=== PATIENT | female | born 1960 | race Caucasian/White ===

== ENCOUNTER → 2020-01-25 09:21 | Outpatient (BNVA) | payer OTHER, SELFPAY | PROVIDERS: PCP Physician Assistant; Visit Provider Advanced Practice Midwife | DX: N95.2 Postmenopausal atrophic vaginitis (principal) | CPT/HCPCS: 99213 ==

== ENCOUNTER → 2020-02-22 13:33 | Outpatient (BNVA) | payer OTHER, SELFPAY | PROVIDERS: Visit Provider Advanced Practice Midwife | DX: N95.2 Postmenopausal atrophic vaginitis (principal); Z80.41 Family history of malignant neoplasm of ovary | CPT/HCPCS: 99212 ==

== ENCOUNTER 2020-02-26 10:25 | Outpatient (REF) | payer OTHER, SELFPAY ==
--- NOTE | 2020-02-26 10:33 | MM_ITS ---
EXAMINATION: MM SCREENING DIGITAL BREAST TOMOSYNTHESIS, BILATERAL CLINICAL INFORMATION: Screening. Asymptomatic. The lifetime risk of breast cancer based on the Tyrer-Cuzick Model is 8%. COMPARISON: Mammography: 11/28/2015, 05/21/2014 TECHNIQUE: Digital breast tomosynthesis is performed in both the craniocaudal and mediolateral oblique views along with computer-aided detection (CAD). Synthesized 2D images are generated from the tomosynthesis. FINDINGS: There are scattered areas of fibroglandular density (ACR BI-RADS breast composition Category b). There are no significant masses, abnormal calcifications, or other abnormalities. Small nodule anterior outer right breast on CC view is stable to decreased since 2015. MM/MM tomosynthesis screening BI IMPRESSION: No mammographic evidence of malignancy. ASSESSMENT: BI-RADS 2: Benign RECOMMENDATION: Routine annual mammography screening. This patient's information was entered into a reminder system with a target due date for their next mammogram.
== END 2020-02-26 10:26 | disposition home or self-care (01) ==
LOC: HO.MAMMO 10:25
PROVIDERS: PCP Physician Assistant; Visit Provider Physician Assistant
DX: Z12.31 Encounter for screening mammogram for malignant neoplasm of breast (principal)
CPT/HCPCS: 77063; 77067

== ENCOUNTER → 2020-03-21 13:49 | Outpatient (BNVA) | payer OTHER, SELFPAY | PROVIDERS: PCP Physician Assistant; Visit Provider Surgery | DX: Z80.41 Family history of malignant neoplasm of ovary (principal) | CPT/HCPCS: 99202 ==

== ENCOUNTER 2020-04-24 13:49 | Outpatient (REF) | payer OTHER, SELFPAY ==
[2020-04-26 01:22] LABS: C. trachomatis RNA TMA NOT DETECTED (NOT DETECTED); N. gonorrhoeae RNA TMA NOT DETECTED (NOT DETECTED)
[2020-04-27 20:07] LABS: HPV mRNA E6/E7 Not Detected (Not Detected)
== END 2020-04-24 13:50 | disposition home or self-care (01) ==
LOC: HO.LAB 13:49
PROVIDERS: Visit Provider Advanced Practice Midwife
DX: Z01.419 Encounter for gynecological examination (general) (routine) without abnormal findings (principal); Z11.3 Encounter for screening for infections with a predominantly sexual mode of transmission; Z11.8 Encounter for screening for other infectious and parasitic diseases; R10.2 Pelvic and perineal pain; Z78.0 Asymptomatic menopausal state; Z79.899 Other long term (current) drug therapy
CPT/HCPCS: 36415; 87491; 87591; 87624; 87625; 88141; 88142

== ENCOUNTER 2020-05-01 14:27 | Outpatient (REF) | payer OTHER, SELFPAY ==
--- NOTE | 2020-05-01 14:31 | US_ITS ---
EXAMINATION: PELVIC ULTRASOUND CLINICAL INFORMATION: Pain COMPARISON: None TECHNIQUE: Transabdominal and transvaginal pelvic ultrasound was performed. Transvaginal exam was performed for better visualization of the uterus and ovaries. FINDINGS: Uterus is retroverted and measures 6.2 x 1.9 x 3.7 cm in dimension. There are 2 hypoechoic lesions suggestive of fibroids measuring 2.9 x 2.6 x 3.2 cm in the high posterior uterine body and 1.7 x 1.4 x 1.7 cm in the anterior high uterine body/fundus. There are several small calcifications in the lower uterine segment and cervix. The endometrium does not appear thickened measuring 0.3 cm. The ovaries are normal-appearing. The right ovary measures 1.6 x 0.8 x 1.1 cm and the left ovary measures 1 x 1 x 0.8 cm. There is no fluid in the pelvis. US/US pelvic complete IMPRESSION: Fibroid uterus. Normal-appearing ovaries.
--- NOTE | 2020-05-01 14:31 | US_ITS ---
EXAMINATION: PELVIC ULTRASOUND CLINICAL INFORMATION: Pain COMPARISON: None TECHNIQUE: Transabdominal and transvaginal pelvic ultrasound was performed. Transvaginal exam was performed for better visualization of the uterus and ovaries. FINDINGS: Uterus is retroverted and measures 6.2 x 1.9 x 3.7 cm in dimension. There are 2 hypoechoic lesions suggestive of fibroids measuring 2.9 x 2.6 x 3.2 cm in the high posterior uterine body and 1.7 x 1.4 x 1.7 cm in the anterior high uterine body/fundus. There are several small calcifications in the lower uterine segment and cervix. The endometrium does not appear thickened measuring 0.3 cm. The ovaries are normal-appearing. The right ovary measures 1.6 x 0.8 x 1.1 cm and the left ovary measures 1 x 1 x 0.8 cm. There is no fluid in the pelvis. US/US transvaginal IMPRESSION: Fibroid uterus. Normal-appearing ovaries.
== END 2020-05-01 14:28 | disposition home or self-care (01) ==
LOC: HO.US 14:27
PROVIDERS: PCP Physician Assistant; Visit Provider Advanced Practice Midwife
DX: R10.2 Pelvic and perineal pain (principal)
CPT/HCPCS: 76830; 76856

== ENCOUNTER → 2020-05-03 12:24 | Outpatient (BNVA) | payer OTHER, SELFPAY | PROVIDERS: PCP Physician Assistant; Visit Provider Physician Assistant | DX: Z76.89 Persons encountering health services in other specified circumstances (principal) | CPT/HCPCS: 20550; 99212; J1020 ==

== ENCOUNTER → 2020-05-15 11:50 | Outpatient (BNVA) | payer OTHER, SELFPAY | PROVIDERS: PCP Physician Assistant; Visit Provider Advanced Practice Midwife | DX: Z76.89 Persons encountering health services in other specified circumstances (principal) | CPT/HCPCS: 99212 ==

== ENCOUNTER 2020-09-01 19:55 | Emergency (ER) | payer OTHER, SELFPAY ==
[2020-09-01 19:59] VITALS: BP 140/76; PULSE 81; RESP 18; TEMP 36.2; O2SAT 97; BMI 27.1
--- NOTE | 2020-09-01 20:26 | ED_ITS ---
HPI - Extremity Problem General Chief complaint: Extremity Problem Stated complaint: Hand swelling Time Seen by Provider: 09/01/20 20:25 History of Present Illness HPI Narrative: Patient complains of mild redness mild swelling mild pain to the back of the right hand after she was stung by an insect early this morning while gardening, no shortness of breath no fever no swelling in the lips tongue or throat, no other rash Related Data Home Medications Medication Instructions Recorded Confirmed B-complex with vitamin C 1 tab PO DAILY 01/25/20 07/14/20 cetirizine 10 mg tablet 10 mg PO DAILY 01/25/20 07/14/20 cholecalciferol (vitamin D3) 25 25 mcg PO DAILY 01/25/20 07/14/20 mcg (1,000 unit) capsule ibuprofen 200 mg capsule 200 mg PO Q6H PRN 01/25/20 04/10/20 multivitamin,dd-ctum-nqnblwdt 1 tab PO DAILY 01/25/20 07/14/20 fluoxetine 20 mg capsule 20 mg PO DAILY 03/29/20 04/10/20 Previous Rx's Medication Instructions Recorded trazodone 100 mg tablet 100 mg PO BEDTIME #90 tab 03/09/20 acetaminophen 650 mg 650 mg PO DAILY PRN #60 tab 03/16/20 tablet,extended release albuterol sulfate 90 mcg/actuation 1 inh INHALATION QID 30 Days #8.5 g 04/10/20 aerosol inhaler estradiol 10 mcg vaginal tablet 10 mcg VAGINAL 2XW 28 Days #8 tab 04/24/20 amoxicillin 875 mg-potassium 1 tab PO BID 7 Days #14 tab 05/01/20 clavulanate 125 mg tablet pilocarpine HCl 7.5 mg tablet 7.5 mg PO TID #270 tab 05/01/20 doxycycline hyclate 100 mg capsule 100 mg PO BID 7 Days #14 cap 05/17/20 betamethasone, augmented 0.05 % 1 appl TOPICAL BID PRN #50 g 07/14/20 topical cream prednisone 10 mg tablet 10 mg PO .COMPLEX #45 tab 07/14/20 fluoxetine 40 mg capsule 40 mg PO QAM #90 cap 07/23/20 lamotrigine 200 mg tablet 300 mg PO DAILY #45 tab 08/09/20 Allergies Allergy/AdvReac Type Severity Reaction Status Date / Time cat dander [cats] Allergy Rash Verified 09/01/20 20:07 kiwi Allergy Anaphylaxis Verified 09/01/20 20:07 Review of Systems Review of Systems: Redness swelling and mild pain after an insect bite to the back of the right hand are the positive The negatives are no fever no chills no dizziness no weakness no difficulty breathing or swallowing no throat swelling no eye redness no shortness of breath no chest pain no vomiting no other rash Yes all other systems are reviewed and are negative [facility] Past Medical History Source: nursing notes reviewed Medical History History of asthma History of depression History of posttraumatic stress disorder (PTSD) Hx of insomnia Recovering alcoholic Surgical History H/O elbow surgery H/O eye surgery History of biopsy History of bunionectomy Hx of tubal ligation Family History Family History Father Lung cancer Mother Afib Sister Ovarian cancer Social History Social History Alcohol intake: never Advance Directives: No Advance Directives Information Provided: No Patient : No Current occupational status: employed Current occupation: [email or web address] - Right Handed Physical Exam Vital Signs: Vital Signs: Last Vital Signs Temp 97.2 F 09/01/20 19:59 Pulse 81 09/01/20 19:59 Resp 18 09/01/20 19:59 BP 140/76 H 09/01/20 19:59 Pulse Ox 97 09/01/20 19:59 Body Mass Index 27.1 General appearance is no distress, and cooperative Eye exam no redness Pharynx exam there is no swelling of lips tongue or uvula, mucous membranes are moist, voice is normal Neck is supple Chest is clear to auscultation bilateral with full symmetrical breath sounds no adventitious sounds Heart no murmur Skin exam the dorsum of the right hand is mildly red, there is mild induration, no fluctuance no discharge no surrounding erythema, no significant tenderness, there is full range of motion in fingers and wrist, neurovascular intact Skin no other rash Extremities full range of motion x4 Neuro no gross motor sensory deficit Course Course Course Narrative: Exam a few hours after an insect bite on the back of the right hand showed mild redness swelling and she has some mild discomfort as well and some mild itching She is treated for an insect bite, cellulitis is very unlikely as the insect bite was just a few hours ago and this reaction is very common after an insect bite and she is diagnosed with local inflammatory reaction to the bite Discharge Plan Discharge Clinical Impression: Insect bite Patient Disposition: Home, Self-Care Additional Instructions: The redness and mild swelling are common with an insect bite, but there is no sign of any infection now If redness pain or swelling worsen come back for recheck Right now this looks like a typical insect bite local reaction and the treatment is an antihistamine, you have Zyrtec at home, ice and Motrin Return any time any worse condition or any concerns Prescriptions: No Action trazodone 100 mg tablet 100 mg PO BEDTIME Qty: 90 RF: 3 acetaminophen [Mapap Arthritis Pain] 650 mg tablet extended release 650 mg PO DAILY PRN (Reason: pain) Qty: 60 RF: 2 fluoxetine 20 mg capsule 20 mg PO DAILY RF: 0 pilocarpine HCl 7.5 mg tablet 7.5 mg PO TID Qty: 270 RF: 1 doxycycline hyclate 100 mg capsule 100 mg PO BID 7 Days Qty: 14 RF: 0 fluoxetine 40 mg capsule 40 mg PO QAM Qty: 90 RF: 0 lamotrigine 200 mg tablet 300 mg PO DAILY Qty: 45 RF: 3 albuterol sulfate [Ventolin HFA] 90 mcg/actuation HFA aerosol inhaler 1 inh inhalation QID 30 Days Qty: 8.5 RF: 3 amoxicillin-pot clavulanate [Augmentin] 875-125 mg tablet 1 tab PO BID 7 Days Qty: 14 RF: 0 prednisone 10 mg tablet 10 mg PO .COMPLEX Qty: 45 RF: 0 betamethasone, augmented 0.05 % cream 1 appl topical BID PRN (Reason: itching) Qty: 50 RF: 1 cetirizine 10 mg tablet 10 mg PO DAILY RF: 0 cholecalciferol (vitamin D3) 25 mcg (1,000 unit) capsule 25 mcg PO DAILY RF: 0 B-complex with vitamin C Tablet 1 tab PO DAILY RF: 0 Complete Multivitamin Tablet 1 tab PO DAILY RF: 0 ibuprofen 200 mg capsule 200 mg PO Q6H PRNRF: 0 estradiol [Vagifem] 10 mcg tablet 10 mcg vaginal 2XW 28 Days Qty: 8 RF: 11 Interventions: ED Discharge Assessment Last Done: 09/01/20 20:46 Discharge Date/Time: 09/01/20 20:48
== END 2020-09-01 20:48 | disposition home or self-care (01) ==
PROVIDERS: Emergency Provider Internal Medicine; PCP Physician Assistant
DX: S60.561A Insect bite (nonvenomous) of right hand, initial encounter (principal); W57.XXXA Bitten or stung by nonvenomous insect and other nonvenomous arthropods, initial encounter; Y93.H2 Activity, gardening and landscaping; Y92.007 Garden or yard of unspecified non-institutional (private) residence as the place of occurrence of the external cause; Y99.9 Unspecified external cause status
CPT/HCPCS: 99282; 99283

== ENCOUNTER 2020-10-02 09:36 | Outpatient (REF) | payer OTHER, SELFPAY ==
--- NOTE | ~2020-10-02 | XR_ITS ---
EXAMINATION: XR HAND, LEFT CLINICAL INFORMATION: Left hand pain COMPARISON: 03/11/2017 TECHNIQUE: PA, lateral, and oblique views of the left hand. FINDINGS: The bones and soft tissues are normal. No fracture. Alignment is anatomic. Joint spaces are maintained. No erosions or soft tissue calcifications. XR/XR hand LT min 3V IMPRESSION: Normal left hand.
== END 2020-10-02 09:37 | disposition home or self-care (01) ==
LOC: HO.HOSX 09:36
PROVIDERS: Visit Provider Orthopaedic Surgery
DX: M65.312 Trigger thumb, left thumb (principal)
CPT/HCPCS: 73130; 99202

== ENCOUNTER 2020-11-02 09:37 | Day surgery (SDC) | payer OTHER, SELFPAY ==
[2020-10-26 10:40] VITALS: BMI 26.5
[2020-11-02 09:49] VITALS: BP 138/71; PULSE 66; RESP 18; TEMP 36.4; O2SAT 96; BMI 58.6
--- NOTE | 2020-11-02 11:11 | MHC.SHP ---
Pre-Procedural Eval Section A Date of Service: 11/02/20 Section B Chief Complaint: trigger thumb Allergies: Allergies Allergy/AdvReac Type Severity Reaction Status Date / Time cat dander [cats] Allergy Rash Verified 11/02/20 09:54 kiwi Allergy Anaphylaxis Verified 11/02/20 09:54 Plan I have reviewed the history and physical and performed a pertinent physical examination on my patient. No changes have occurred unless specified.
--- NOTE | 2020-11-02 11:11 | W.PM.OPN ---
Operative Note Operative Note Date of Service: 11/02/20 Narrative: Operative Note Preop diagnosis: 1. Left thumb Trigger finger Postop diagnosis: 1. Left thumb Trigger finger Procedure: 1. Left thumb A1 laz release Surgeon: Kathleen Davis MD Anesthesia: local block using 1% lidocaine with epinephrine Findings: No locking or catching after A1 laz release EBL: Less than 5 mL Tourniquet time: None Specimens: None Complications: None Disposition: Brought to recovery room in stable condition Plan: Follow-up for 7-10 days for wound check and suture removal Indications: The patient is 60 years old, with a left thumb trigger finger that has been unresponsive to nonoperative management. The risks and benefits of operative treatment including but not limited to risk of damage to blood vessels, nerves, tendons, infection, persistent pain, persistent symptoms, recurrence or possible need for additional surgery were discussed with the patient and the patient wishes to proceed with surgery. Procedure: Once consent was obtained a local block was performed in the preop area using a combination of 1% lidocaine with epinephrine. The patient was then brought back to the operating suite and placed on the operative table in supine position. A tourniquet was applied to the proximal aspect of the left upper extremity and the limb was prepped and draped in a standard surgical fashion. Once assured that we had a good block, a 1.5 cm oblique incision was made centered over the A1 laz of the left thumb . The incision was made through the skin to the subcutaneous tissues using a #15 blade. Careful dissection was made down to the level of the A1 laz using tenotomy scissors, with care being taken to protect the nearby neurovascular structures. A longitudinal incision was made in the A1 laz 1st using a #15 blade, then using tenotomy scissors under direct visualization. The A1 laz was noted to be thickened. Following our A1 laz release, we no longer saw any locking or catching of the digit with flexion and extension. Once satisfied with our A1 laz release the wound was copiously irrigated with normal saline and hemostasis was obtained with a brief period of local pressure. The skin edges were reapproximated with some 5.0 nylon suture material and a sterile dressing was applied. The patient appears to have tolerated the procedure well and with no complications. All digits were well vascularized at the conclusion of the case.
[2020-11-02 11:38] VITALS: BP 132/70; PULSE 66; RESP 20; TEMP 36.9; O2SAT 97
== END 2020-11-02 11:55 | disposition home or self-care (01) ==
PROVIDERS: PCP Physician Assistant; Visit Provider Orthopaedic Surgery
PROC: (CPT 26055; principal; 2020-11-02 10:40)
DX: M65.312 Trigger thumb, left thumb (principal); Z79.899 Other long term (current) drug therapy; Z79.1 Long term (current) use of non-steroidal anti-inflammatories (NSAID); Z87.891 Personal history of nicotine dependence
CPT/HCPCS: 26055

== ENCOUNTER → 2020-11-15 12:45 | Outpatient (BNVA) | payer OTHER, SELFPAY | PROVIDERS: Visit Provider Orthopaedic Surgery | DX: M65.312 Trigger thumb, left thumb (principal) | CPT/HCPCS: 99212 ==

== ENCOUNTER → 2020-12-04 13:33 | Outpatient (BNVA) | payer OTHER, SELFPAY | PROVIDERS: Visit Provider Physician Assistant | DX: M65.312 Trigger thumb, left thumb (principal); J30.81 Allergic rhinitis due to animal (cat) (dog) hair and dander; Z87.891 Personal history of nicotine dependence; Z91.018 Allergy to other foods | CPT/HCPCS: 99212 ==

== ENCOUNTER 2021-01-03 13:00 | Outpatient (RCR) | payer OTHER, SELFPAY ==
--- NOTE | 2021-01-03 13:33 | MHC.OT.DC ---
[address] [phone] F: [phone] Occupational Therapy Discharge Note Provider: Dr Davis Diagnosis: Post-op left thumb trigger finger release Date of Surgery: 11/02/20 Date of Evaluation: 12/13/20 Date of Discharge: 01/03/21 Treatments to Date: 6 Discharge Status: Achieved Goals Improved Function Independent with HEP Discharge Summary: 9 weeks post-op left thumb trigger finger release, good functional range and strength, very minimal scar tissue and pt reports no issues with hypersensitivity or discomfort. She reports some pain in MP/IP w/ thumb flexion, likely due to arthritis, but good understanding of symptoms and management. Electronically Signed By: Linette Pablo OTR/L Please Sign and return to therapist, thank you for your referral.
== END 2021-01-03 13:34 | disposition home or self-care (01) ==
LOC: HO.OT 13:00
PROVIDERS: PCP Physician Assistant; Visit Provider Physician Assistant
DX: M65.312 Trigger thumb, left thumb (principal)
CPT/HCPCS: 97110; 97140; 97165

== ENCOUNTER 2021-03-20 12:29 | Outpatient (REF) | payer OTHER, SELFPAY ==
--- NOTE | ~2021-03-20 | MM_ITS ---
EXAMINATION: MM SCREENING DIGITAL BREAST TOMOSYNTHESIS, BILATERAL CLINICAL INFORMATION: Screening. Asymptomatic. The lifetime risk of breast cancer based on the Tyrer-Cuzick Model is 7%. COMPARISON: Mammography: 02/26/2020, 11/28/2015. TECHNIQUE: Digital breast tomosynthesis is performed in both the craniocaudal and mediolateral oblique views along with computer-aided detection (CAD). Synthesized 2D images are generated from the tomosynthesis. FINDINGS: There are scattered areas of fibroglandular density (ACR BI-RADS breast composition Category b). There are no significant masses, abnormal calcifications, or other abnormalities. Small stable nodularity anterior upper outer right breast. No significant changes. MM/MM tomosynthesis screening BI IMPRESSION: No mammographic evidence of malignancy. ASSESSMENT: BI-RADS 2: Benign RECOMMENDATION: Routine annual mammography screening. This patient's information was entered into a reminder system with a target due date for their next mammogram.
== END 2021-03-20 12:30 | disposition home or self-care (01) ==
LOC: HO.MAMMO 12:29
PROVIDERS: Visit Provider Physician Assistant
DX: Z12.31 Encounter for screening mammogram for malignant neoplasm of breast (principal)
CPT/HCPCS: 77063; 77067

== ENCOUNTER 2021-04-04 07:00 | Emergency (ER) | payer OTHER, SELFPAY ==
[2021-04-04] VITALS (7 sets, daily range): BP systolic 152–171; BP diastolic 69–100; PULSE 67–95; RESP 18–20; TEMP 36.6–37.1; O2SAT 96–98; BMI 26.5
--- NOTE | ~2021-04-04 | XR_ITS ---
EXAMINATION: XR CHEST CLINICAL INFORMATION: Shortness of breath COMPARISON: May 27, 2019 TECHNIQUE: AP portable view of the chest was obtained. FINDINGS: No significant abnormality is noted involving the heart, lungs, mediastinum, bony thorax or soft tissues. XR/XR chest 1V IMPRESSION: No acute disease.
[2021-04-04] MEDS: Ondansetron ODT 4 MG TAB.RAPDIS TRANSLINGU (07:17)
--- NOTE | 2021-04-04 07:49 | ED_ITS ---
HPI - General Adult General Chief complaint: General Medical Stated complaint: MULTIPLE COMPLAINTS Time Seen by Provider: 04/04/21 07:49 Source: patient Mode of arrival: ambulatory Limitations: no limitations History of Present Illness HPI narrative: 12-year-old female with history of depression who presents to the ER for evaluation of nausea, vomiting and diarrhea for the last 4 days. She reports body aches and weakness as well. She took it at home COVID test 3 days ago and was negative. She is fully vaccinated. She has no shortness of breath or chest pain. Reports dizziness and weakness. She feels like there is nothing left in her. She has only been dry heaving as she has not been able to tolerate much p.o. except for popsicles. She has no abdominal pain, fevers, chills, urinary symptoms, cough. MD complaint: Vomiting and diarrhea, weakness Onset (ago): day(s) (4) Location: abdomen, left, right, upper extremity and lower extremity Radiation: non-radiation Severity: moderate Severity scale (1-10): 5 Quality: aching Pain Consistency: intermittent Relieving factors: none Exacerbating factors: none Associated symptoms: loss of appetite, malaise, nausea/vomiting and weakness Treatments prior to arrival: none Related Data Home Medications Medication Instructions Recorded Confirmed B-complex with vitamin C 1 tab PO DAILY 01/25/20 03/13/21 cetirizine 10 mg tablet 10 mg PO DAILY 01/25/20 03/13/21 cholecalciferol (vitamin D3) 25 25 mcg PO DAILY 01/25/20 03/13/21 mcg (1,000 unit) capsule ibuprofen 200 mg capsule 200 mg PO Q6H PRN 01/25/20 03/13/21 multivitamin,tk-fymg-gbywdgso 1 tab PO DAILY 01/25/20 03/13/21 (Complete Multivitamin) Previous Rx's Medication Instructions Recorded betamethasone, augmented 0.05 % 1 appl TOPICAL BID PRN #50 g 07/14/20 topical cream acetaminophen 650 mg 650 mg PO DAILY PRN #60 tab 10/24/20 tablet,extended release (Mapap Arthritis Pain) pilocarpine HCl 7.5 mg tablet 7.5 mg PO TID #270 tab 10/25/20 miscellaneous medical supply 1 ea MISCELLANEOUS DAILY #1 ea 12/07/20 fluoxetine 40 mg capsule 40 mg PO QAM #90 cap 02/12/21 trazodone 100 mg tablet 100 mg PO BEDTIME #90 tab 03/05/21 albuterol sulfate 90 mcg/actuation 1 inh INHALATION QID 30 Days #8.5 g 03/13/21 aerosol inhaler (Ventolin HFA) clotrimazole-betamethasone 1 1 appl TOPICAL BID 15 Days #15 g 03/13/21 %-0.05 % topical cream lamotrigine 200 mg tablet 300 mg PO DAILY #45 tab 04/04/21 ondansetron 4 mg disintegrating 4 mg PO Q8H PRN #10 tab 04/04/21 tablet Allergies Allergy/AdvReac Type Severity Reaction Status Date / Time cat dander [cats] Allergy Rash Verified 03/13/21 14:14 kiwi Allergy Anaphylaxis Verified 03/13/21 14:14 Review of Systems Review of Systems: Constitutional: No Fever, No Chills ENT/Mouth: No sore throat, No Rhinorrhea, No Swallowing Difficulty Cardiovascular: No Chest Pain, No SOB, No Orthopnea, No Edema Respiratory: No Cough, No Sputum, No Wheezing, No dyspnea Gastrointestinal: + Nausea,+ Vomiting, + Diarrhea, No abdominal Pain, No Hematochezia, No Melena Genitourinary: No Dysuria, No Urinary Frequency, No Hematuria Musculoskeletal: No joint pain, No Myalgias Skin: No Skin Lesions, No rash Neuro: No Weakness, No Numbness, + Dizziness, + Headache Psych: No Anxiety/Panic, No Depression Heme/Lymph: No Bruising, No Lymphadenopathy Endocrine: No Polyuria, No Polydipsia PMFSH Past Medical History Medical History COVID-19 vaccine administered History of asthma History of depression History of posttraumatic stress disorder (PTSD) Hx of insomnia Recovering alcoholic Surgical History H/O elbow surgery History of biopsy History of blepharoplasty History of bunionectomy History of hand surgery Hx of tubal ligation Family History Family History Father Lung cancer Mother Afib Sister Ovarian cancer Other Mental health disorder Substance use disorder Social History Social History (Updated 03/13/21 @ 14:22 by Josemanuel Maximus, PA-C) Housing: Apartment Are you a primary director of career resources to a significant other at home: No Do you presently have visiting nurse or other home services: No Alcohol intake: former Patient Tobacco Use Status: Former Tobacco user Quit Date: 15 yrs ago Tobacco use type: Cigarette Use of substances other than those prescribed or required for medical reasons: Yes Substance Use Type: Marijuana Advance Directives: No Advance Directives Information Provided: Yes service: No Current occupational status: unemployed Physical Exam Vital Signs: Vital Signs: Last Vital Signs Temp 98.7 F 04/04/21 10:34 Pulse 74 04/04/21 10:34 Resp 20 04/04/21 10:34 BP 171/69 H 04/04/21 10:34 Pulse Ox 97 04/04/21 10:34 BMI result Body Mass Index 26.5 Appearance: Alert. Oriented X3. No acute distress. Eyes: Pupils equal, round and reactive to light. ENT: Pharynx normal. Neck: Normal inspection. Neck supple. CVS: Normal heart rate and rhythm. Pulses normal. Respiratory: No respiratory distress. Breath sounds normal. Abdomen: Soft and nontender. +BS x4 Skin: Skin warm and dry. Normal skin color. Normal skin turgor. No rashes. Extremities: No lower extremity edema. Neuro: Oriented X 3. No motor deficit. No sensory deficit. Course Course Course Narrative: 61-year-old female presenting to the ER with weakness and dizziness in the setting of vomiting and diarrhea for the last 4 days. Her physical exam is benign with no abdominal tenderness. Her vital signs are normal. She appears well, nontoxic. Will check COVID swab along with metabolic workup and EKG. Will check orthostatic vital signs as well. Will give IV fluids and monitor closely. Reevaluation(s) Reevaluation #1: Labs showing WBC 11.9, which is most likely reactive due to vomiting. Viral PCR negative. No significant electrolyte abnormalities and LFTs ok. She feels better after IVF. Urinating well and no UTI on UA. Will give PO trial. Most likely gastroenteritis. Reevaluation #2: Tolerating evert rafa and crackers. She is feeling better. She is stable for discharge home with Zofran and supportive care. Patient agrees with plan. Medical Decision Making Lab Data Result diagrams: 04/04/21 08:05 04/04/21 08:05 Labs: Lab Results 04/04/21 04/04/21 04/04/21 Range/Units 07:18 08:05 08:05 WBC 11.9 H (4.8-10.8) X10*3/uL RBC 4.88 (4.20-5.50) X10*6/uL Hgb 14.8 (12.0-16.0) g/dl Hct 43.0 (37.0-47.0) % MCV 88.1 (80.0-98.0) fL MCH 30.3 (27.0-33.0) pg MCHC 34.4 (31.0-35.0) g/dl RDW 13.1 (11.0-16.0) % Plt Count 406 H (160-400) X10*3/uL MPV 8.9 L (9.4-12.3) fL Immature Gran % (Auto) 0.3 (0.0-0.4) % Neut % (Auto) 75.3 H (45-73) % Lymph % (Auto) 17.9 L (20-40) % [place] % (Auto) 5.9 (2-11) % Eos % (Auto) 0.3 (0-4) % Baso % (Auto) 0.3 (0-2) % Lymph # (Auto) 2.1 (1.2-4.9) X10*3/uL [place] # (Auto) 0.7 (0.1-1.2) X10*3/uL Eos # (Auto) 0.0 (0.0-0.4) X10*3/uL Baso # (Auto) 0.0 (0.0-0.2) X10*3/uL Abs Immat Gran (auto) 0.04 H (0.00-0.03) X10*3/uL Absolute Neuts (auto) 8.9 H (2.0-8.3) x10*3/uL Absolute Nucleated RBC 0.000 (0.0-0.012) X10*3/uL Nucleated RBC % (auto) 0.0 (0.0-0.2) /100WBC Sodium 138 (135-145) mmol/L Potassium 3.6 (3.3-5.1) mmol/L Chloride 105 (96-108) mmol/L Carbon Dioxide 21 L (22-29) mmol/L Anion Gap 16 (12-20) BUN 17 H (9-16) mg/dL Creatinine 0.82 (0.5-1.4) mg/dL Estim Creat Clear Calc 65.7 Estimated GFR > 60 Random Glucose 121 H (60-115) mg/dL Calcium 10.0 (8.4-10.2) mg/dL Magnesium 2.1 (1.6-2.6) mg/dL Total Bilirubin 0.7 (0.0-1.0) mg/dL Direct Bilirubin 0.3 (0.0-0.5) mg/dL AST 27 (5-31) U/L ALT 22 (0-31) U/L Alkaline Phosphatase 67 (39-117) U/L Total Protein 7.6 (6.5-8.0) g/dL Albumin 4.7 (3.5-5.0) g/dL Urine Color Urine Appearance Urine pH (5.0-8.0) Ur Specific [place] (1.005-1.025) Urine Protein (NEG-TRACE) MG/DL Urine Glucose (UA) (NEG) MG/DL Urine Ketones (NEG) MG/DL Urine Blood (NEG) Urine Nitrite (NEG) Ur Leukocyte Esterase (NEG) Urine RBC (0) /HPF Urine WBC (0-4) /HPF Ur Squamous Epith Cells /LPF Uric Acid Crystals /LPF Urine Bacteria /LPF Hyaline Casts /LPF Urine Mucus /LPF Influenza Type A (PCR) NEGATIVE (Negative) Influenza Type B (PCR) NEGATIVE (Negative) RSV RNA Qual (PCR) NEGATIVE (Negative) SARS-CoV-2 RNA (RT-PCR) NEGATIVE (Negative) 04/04/21 Range/Units 08:51 WBC (4.8-10.8) X10*3/uL RBC (4.20-5.50) X10*6/uL Hgb (12.0-16.0) g/dl Hct (37.0-47.0) % MCV (80.0-98.0) fL MCH (27.0-33.0) pg MCHC (31.0-35.0) g/dl RDW (11.0-16.0) % Plt Count (160-400) X10*3/uL MPV (9.4-12.3) fL Immature Gran % (Auto) (0.0-0.4) % Neut % (Auto) (45-73) % Lymph % (Auto) (20-40) % [place] % (Auto) (2-11) % Eos % (Auto) (0-4) % Baso % (Auto) (0-2) % Lymph # (Auto) (1.2-4.9) X10*3/uL [place] # (Auto) (0.1-1.2) X10*3/uL Eos # (Auto) (0.0-0.4) X10*3/uL Baso # (Auto) (0.0-0.2) X10*3/uL Abs Immat Gran (auto) (0.00-0.03) X10*3/uL Absolute Neuts (auto) (2.0-8.3) x10*3/uL Absolute Nucleated RBC (0.0-0.012) X10*3/uL Nucleated RBC % (auto) (0.0-0.2) /100WBC Sodium (135-145) mmol/L Potassium (3.3-5.1) mmol/L Chloride (96-108) mmol/L Carbon Dioxide (22-29) mmol/L Anion Gap (12-20) BUN (9-16) mg/dL Creatinine (0.5-1.4) mg/dL Estim Creat Clear Calc Estimated GFR Random Glucose (60-115) mg/dL Calcium (8.4-10.2) mg/dL Magnesium (1.6-2.6) mg/dL Total Bilirubin (0.0-1.0) mg/dL Direct Bilirubin (0.0-0.5) mg/dL AST (5-31) U/L ALT (0-31) U/L Alkaline Phosphatase (39-117) U/L Total Protein (6.5-8.0) g/dL Albumin (3.5-5.0) g/dL Urine Color YELLOW Urine Appearance CLEAR Urine pH 6.0 (5.0-8.0) Ur Specific [place] >= 1.030 H (1.005-1.025) Urine Protein 2+ H (NEG-TRACE) MG/DL Urine Glucose (UA) NEG (NEG) MG/DL Urine Ketones 15 (NEG) MG/DL Urine Blood TRACE (NEG) Urine Nitrite NEG (NEG) Ur Leukocyte Esterase NEG (NEG) Urine RBC 0-2 (0) /HPF Urine WBC 0-2 (0-4) /HPF Ur Squamous Epith Cells TRACE /LPF Uric Acid Crystals 1+ /LPF Urine Bacteria TRACE /LPF Hyaline Casts 0-2 /LPF Urine Mucus 2+ /LPF Influenza Type A (PCR) (Negative) Influenza Type B (PCR) (Negative) RSV RNA Qual (PCR) (Negative) SARS-CoV-2 RNA (RT-PCR) (Negative) ECG Data Attestation: I personally reviewed and interpreted this ECG as follows: Interpretation: Normal sinus rhythm, heart rate 67 beats per minute, AK interval 152 MS, no ST segment elevations or depressions. Discharge Plan Discharge Clinical Impression: Gastroenteritis Patient Disposition: Home, Self-Care Instructions: Gastroenteritis (ED) Additional Instructions: Your lab workup today was reassuring. You were negative for COVID-19, influenza and RSV. You are most likely suffering from a case of gastroenteritis - this should self resolve. Take the prescribed nausea medication as needed. Recommend [id number] Imodium or Pepto-Bismol as needed for upset stomach and diarrhea. Follow-up with your doctor this week. Rest and stay hydrated. If you develop new or worsening symptoms call 911 or come back to the ER for further evaluation. Prescriptions: New ondansetron 4 mg tablet,disintegrating 4 mg PO Q8H PRN (Reason: nausea and vomiting) Qty: 10 RF: 0 No Action acetaminophen [Mapap Arthritis Pain] 650 mg tablet extended release 650 mg PO DAILY PRN (Reason: pain) Qty: 60 RF: 2 pilocarpine HCl 7.5 mg tablet 7.5 mg PO TID Qty: 270 RF: 1 fluoxetine 40 mg capsule 40 mg PO QAM Qty: 90 RF: 1 trazodone 100 mg tablet 100 mg PO BEDTIME Qty: 90 RF: 3 lamotrigine 200 mg tablet 300 mg PO DAILY Qty: 45 RF: 3 miscellaneous medical supply Misc 1 ea miscellaneous DAILY Qty: 1 RF: 0 betamethasone, augmented 0.05 % cream 1 appl topical BID PRN (Reason: itching) Qty: 50 RF: 1 clotrimazole-betamethasone 1-0.05 % cream 1 appl topical BID 15 Days Qty: 15 RF: 0 albuterol sulfate [Ventolin HFA] 90 mcg/actuation HFA aerosol inhaler 1 inh inhalation QID 30 Days Qty: 8.5 RF: 3 cetirizine 10 mg tablet 10 mg PO DAILY RF: 0 cholecalciferol (vitamin D3) 25 mcg (1,000 unit) capsule 25 mcg PO DAILY RF: 0 B-complex with vitamin C Tablet 1 tab PO DAILY RF: 0 Complete Multivitamin Tablet 1 tab PO DAILY RF: 0 ibuprofen 200 mg capsule 200 mg PO Q6H PRN (Reason: Pain) RF: 0
[2021-04-04] MEDS: 0.9 % Sodium Chloride 1,000 ML 999 ML IVCONT ×2 (08:07→09:27)
--- NOTE | 2021-04-04 08:07 | ECG_ITS ---
Test Reason : general medicine Blood Pressure : / mmHG Vent. Rate : 067 BPM Atrial Rate : 067 BPM P-R Int : 152 ms QRS Dur : 082 ms QT Int : 416 ms P-R-T Axes : 018 077 052 degrees QTc Int : 439 ms Normal sinus rhythm Normal ECG When compared with ECG of 29-MAR-2019 18:42, No significant change was found Referred By: Elo Mayfield Electronically Signed By:Kalen Mendiola
[2021-04-04 08:09] LABS: MANUAL DIFF FLAG NO
[2021-04-04 08:10] LABS: Basophils Percent Auto 0.3 % (0-2); Eosinophils Percent Auto 0.3 % (0-4); Hemoglobin 14.8 g/dl (12.0-16.0); Imm Gran Abs Auto 0.04 X10*3/uL (0.00-0.03); Imm Gran Pct Auto 0.3 % (0.0-0.4); Lymphocytes Absolute Auto 2.1 X10*3/uL (1.2-4.9); Lymphocytes Percent Auto 17.9 % (20-40); Mean Corpuscular HGB Conc 34.4 g/dl (31.0-35.0); Mean Corpuscular Hemoglobin 30.3 pg (27.0-33.0); Mean Corpuscular Volume 88.1 fL (80.0-98.0); Mean Platelet Volume 8.9 fL (9.4-12.3); Monocytes Absolute Auto 0.7 X10*3/uL (0.1-1.2); Monocytes Percent Auto 5.9 % (2-11); Neutrophils Absolute Auto 8.9 x10*3/uL (2.0-8.3); Neutrophils Percent Auto 75.3 % (45-73); Platelet Count 406 X10*3/uL (160-400); Red Blood Count 4.88 X10*6/uL (4.20-5.50); Red Cell Distribution Width 13.1 % (11.0-16.0); White Blood Count 11.9 X10*3/uL (4.8-10.8)
[2021-04-04 08:14] LABS: Influenza A PCR NEGATIVE (Negative); Influenza B PCR NEGATIVE (Negative); Resp Syncy Virus RNA Qual PCR NEGATIVE (Negative); SARS COV2 PCR INHOUSE NEGATIVE (Negative)
[2021-04-04 08:25] LABS: Alanine Aminotransferase 22 U/L (0-31); Albumin Level 4.7 g/dL (3.5-5.0); Alkaline Phosphatase 67 U/L (39-117); Anion Gap 16 (12-20); Aspartate Amino Transferase 27 U/L (5-31); Bilirubin Direct 0.3 mg/dL (0.0-0.5); Bilirubin Total 0.7 mg/dL (0.0-1.0); Blood Urea Nitrogen 17 mg/dL (9-16); Carbon Dioxide 21 mmol/L (22-29); Chloride 105 mmol/L (96-108); Creatinine Clr Calc Pharmacy 65.7; Estimated Glomerular Filt Rate > 60; Glucose Random 121 mg/dL (60-115); Magnesium 2.1 mg/dL (1.6-2.6); Potassium 3.6 mmol/L (3.3-5.1); Sodium 138 mmol/L (135-145); Total Protein 7.6 g/dL (6.5-8.0)
[2021-04-04 08:59] LABS: Appearance Urine CLEAR; Color Urine YELLOW; Glucose Urine UA NEG (NEG); Leukocyte Esterase Urine NEG (NEG); Nitrite Urine NEG (NEG); Specific Gravity - Urine >= 1.030 (1.005-1.025); UACC Culture Trigger NO; Urine Blood TRACE (NEG); Urine Ketones 15 MG/DL (NEG); Urine Protein 2+ MG/DL (NEG-TRACE)
[2021-04-04 09:09] LABS: Mucus Urine 2+ /LPF
[2021-04-04 09:10] LABS: Squamous Epithelial Cell Urine TRACE /LPF
[2021-04-04 09:11] LABS: Bacteria Urine TRACE /LPF; RBC Urine 0-2 /HPF (0); WBC Urine 0-2 /HPF (0-4)
[2021-04-04 09:13] LABS: Hyaline Casts Urine 0-2 /LPF
[2021-04-04 09:14] LABS: Uric Acid Crystals Urine 1+ /LPF
[2021-04-04] MEDS: ondansetron HCL 4 MG/2 ML VIAL IVPUSH (09:30)
== END 2021-04-04 11:33 | disposition home or self-care (01) ==
PROVIDERS: Physician Assistant; Emergency Provider Emergency Medicine; PCP Physician Assistant
DX: K52.9 Noninfective gastroenteritis and colitis, unspecified (principal); Z20.822 Contact with and (suspected) exposure to COVID-19; R11.2 Nausea with vomiting, unspecified; F12.90 Cannabis use, unspecified, uncomplicated
CPT/HCPCS: 0241U; 36415; 71045; 80048; 80076; 81001; 83735; 85025; 93005; 96361; 96374; 99284; J2405

== ENCOUNTER → 2021-07-17 09:04 | Outpatient (BNVA) | payer OTHER, SELFPAY | PROVIDERS: PCP Physician Assistant; Visit Provider Advanced Practice Midwife | DX: Z01.419 Encounter for gynecological examination (general) (routine) without abnormal findings (principal) ==

== ENCOUNTER 2021-10-05 07:44 | Outpatient (REF) | payer OTHER, SELFPAY ==
[2021-10-05 08:13] LABS: Hematocrit 39.6 % (37.0-47.0); Hemoglobin 13.2 g/dl (12.0-16.0); Mean Corpuscular HGB Conc 33.3 g/dl (31.0-35.0); Mean Corpuscular Hemoglobin 30.3 pg (27.0-33.0); Mean Platelet Volume 8.8 fL (9.4-12.3); Platelet Count 356 X10*3/uL (160-400); Red Blood Count 4.35 X10*6/uL (4.20-5.50); Red Cell Distribution Width 13.3 % (11.0-16.0); White Blood Count 8.5 X10*3/uL (4.8-10.8)
[2021-10-05 08:41] LABS: Alanine Aminotransferase 24 U/L (0-31); Albumin Level 4.4 g/dL (3.5-5.0); Alkaline Phosphatase 65 U/L (39-117); Anion Gap 11 (12-20); Aspartate Amino Transferase 30 U/L (5-31); Bilirubin Total 0.2 mg/dL (0.0-1.0); Blood Urea Nitrogen 15 mg/dL (9-16); Calcium 9.4 mg/dL (8.4-10.2); Carbon Dioxide 28 mmol/L (22-29); Chloride 105 mmol/L (96-108); Cholesterol 240 mg/dL; Estimated Glomerular Filt Rate > 60; Glucose Fasting 97 mg/dL (60-99); HDL Cholesterol 60 mg/dL; LDL Cholesterol Calculated 159 mg/dl; Potassium 4.1 mmol/L (3.3-5.1); Sodium 140 mmol/L (135-145); Triglycerides 105 mg/dL
[2021-10-05 09:03] LABS: TSH reflex Free T4 2.02 uIU/mL (0.32-4.0)
== END 2021-10-05 07:45 | disposition home or self-care (01) ==
LOC: HO.LAB 07:44
PROVIDERS: PCP Physician Assistant; Visit Provider Physician Assistant
DX: E78.1 Pure hyperglyceridemia (principal); Z13.1 Encounter for screening for diabetes mellitus
CPT/HCPCS: 36415; 80053; 80061; 84443; 85027

== ENCOUNTER 2022-03-29 13:15 | Outpatient (REF) | payer OTHER, SELFPAY ==
--- NOTE | ~2022-03-29 | MM_ITS ---
EXAMINATION: MM SCREENING DIGITAL BREAST TOMOSYNTHESIS, BILATERAL CLINICAL INFORMATION: Screening. Asymptomatic. The lifetime risk of breast cancer based on the Tyrer-Cuzick Model is 7.6%. COMPARISON: Mammography: March 20, 2021 and studies dating back to November 28, 2015 TECHNIQUE: Digital breast tomosynthesis is performed in both the craniocaudal and mediolateral oblique views along with computer-aided detection (CAD). Synthesized 2D images are generated from the tomosynthesis. FINDINGS: There are scattered areas of fibroglandular density (ACR BI-RADS breast composition Category b). There are no significant masses, abnormal calcifications, or other abnormalities. MM/MM tomosynthesis screening BI IMPRESSION: No significant changes from prior exam. ASSESSMENT: BI-RADS 1: Negative RECOMMENDATION: Routine annual mammography screening. This patient's information was entered into a reminder system with a target due date for their next mammogram.
== END 2022-03-29 13:16 | disposition home or self-care (01) ==
LOC: HO.MAMMO 13:15
PROVIDERS: Visit Provider Physician Assistant
DX: Z12.31 Encounter for screening mammogram for malignant neoplasm of breast (principal)
CPT/HCPCS: 77063; 77067

== ENCOUNTER 2022-04-15 14:29 | Outpatient (REF) | payer OTHER, SELFPAY ==
[2022-04-15 15:13] LABS: Influenza A PCR NEGATIVE (Negative); Influenza B PCR NEGATIVE (Negative); Resp Syncy Virus RNA Qual PCR NEGATIVE (Negative); SARS COV2 PCR INHOUSE NEGATIVE (Negative)
== END 2022-04-15 14:30 | disposition home or self-care (01) ==
LOC: HO.LNP 14:29
PROVIDERS: Visit Provider Internal Medicine
DX: R43.9 Unspecified disturbances of smell and taste (principal); Z20.822 Contact with and (suspected) exposure to COVID-19
CPT/HCPCS: 0241U

== ENCOUNTER 2022-04-19 10:46 | Outpatient (REF) | payer OTHER, SELFPAY ==
[2022-04-19 14:21] LABS: Hematocrit 39.8 % (37.0-47.0); Hemoglobin 12.9 g/dl (12.0-16.0); Mean Corpuscular HGB Conc 32.4 g/dl (31.0-35.0); Mean Corpuscular Hemoglobin 29.9 pg (27.0-33.0); Mean Corpuscular Volume 92.3 fL (80.0-98.0); Mean Platelet Volume 9.4 fL (9.4-12.3); Platelet Count 370 X10*3/uL (160-400); Red Blood Count 4.31 X10*6/uL (4.20-5.50); Red Cell Distribution Width 13.6 % (11.0-16.0); White Blood Count 7.5 X10*3/uL (4.8-10.8)
[2022-04-19 14:38] LABS: Anion Gap 13 (12-20); Carbon Dioxide 29 mmol/L (22-29)
[2022-04-19 14:44] LABS: Alanine Aminotransferase 21 U/L (0-31); Albumin Level 4.1 g/dL (3.5-5.0); Alkaline Phosphatase 60 U/L (39-117); Aspartate Amino Transferase 26 U/L (5-31); Bilirubin Total 0.3 mg/dL (0.0-1.0); Blood Urea Nitrogen 13 mg/dL (9-16); Calcium 9.3 mg/dL (8.4-10.2); Chloride 105 mmol/L (96-108); Cholesterol 221 mg/dL; Estimated Glomerular Filt Rate > 60; Glucose Fasting 93 mg/dL (60-99); HDL Cholesterol 56 mg/dL; LDL Cholesterol Calculated 143 mg/dl; Potassium 4.5 mmol/L (3.3-5.1); Sodium 142 mmol/L (135-145); Total Protein 6.7 g/dL (6.5-8.0); Triglycerides 113 mg/dL
[2022-04-19 15:00] LABS: TSH reflex Free T4 1.31 uIU/mL (0.32-4.0)
== END 2022-04-19 10:47 | disposition home or self-care (01) ==
LOC: HO.HMGCLDS 10:46
PROVIDERS: PCP Physician Assistant; Visit Provider Physician Assistant
DX: E78.9 Disorder of lipoprotein metabolism, unspecified (principal); Z13.1 Encounter for screening for diabetes mellitus; Z13.29 Encounter for screening for other suspected endocrine disorder
CPT/HCPCS: 36415; 80053; 80061; 84443; 85027

== ENCOUNTER → 2022-08-07 09:00 | Outpatient (BNVA) | payer OTHER, SELFPAY | PROVIDERS: PCP Physician Assistant; Visit Provider Advanced Practice Midwife ==

== ENCOUNTER 2022-10-13 13:01 | Emergency (ER) | payer OTHER, SELFPAY ==
[2022-10-13 14:20] VITALS: BP 140/84; PULSE 71; RESP 18; TEMP 37; O2SAT 97; BMI 28.2
--- NOTE | 2022-10-13 16:35 | ED.NAVMDI ---
HPI - Nausea/Vomiting/Diarrhea General Chief complaint: Nausea/Vomiting/Diarrhea Stated complaint: Diarrhea Time Seen by Provider: 10/13/22 16:31 Source: patient Mode of arrival: ambulatory Limitations: no limitations History of Present Illness HPI Narrative: Patient with nauseated with watery diarrhea for last 3- 4 days 7-8 times a day watery stool with diffuse abdominal cramp no fever no chills no recent travel no use of antibiotic no other family member sick patient moves bowel after eating any food Related Data Home Medications Medication Instructions Recorded Confirmed B-complex with vitamin C 1 tab PO DAILY 01/25/20 09/17/22 cetirizine 10 mg tablet 10 mg PO DAILY 01/25/20 09/17/22 cholecalciferol (vitamin D3) 25 25 mcg PO DAILY 01/25/20 09/17/22 mcg (1,000 unit) capsule multivitamin,[id number]-amhg-lbdxqnmx 1 tab PO DAILY 01/25/20 09/17/22 (Complete Multivitamin tablet) pilocarpine HCl 7.5 mg tablet 7.5 mg PO ONCE 03/18/22 09/17/22 Previous Rx's Medication Instructions Recorded acetaminophen 650 mg 650 mg PO DAILY PRN pain #60 tabs 02/14/22 tablet,extended release (Mapap Arthritis Pain) fluoxetine 40 mg capsule 40 mg PO DAILY 90 days #90 caps 03/10/22 lamotrigine 200 mg tablet 300 mg PO DAILY 90 days #135 tabs 03/10/22 trazodone 100 mg tablet 100 mg PO BEDTIME #90 tabs 03/10/22 prednisone 10 mg tablet 10 mg PO DAILY #28 tabs 09/20/22 albuterol sulfate 90 mcg/actuation 1 inh inhalation QID 30 days #8.5 10/11/22 aerosol inhaler (Ventolin HFA) grams fluticasone propionate 115 2 puff inhalation BID 30 days #12 10/11/22 mcg-salmeterol 21 mcg/actuation grams HFA inhaler (Advair HFA) fluticasone propionate 50 1 spray intranasal BID 30 days #16 10/11/22 mcg/actuation nasal grams spray,suspension (Flonase Allergy Relief) semaglutide 0.25 mg or 0.5 mg (2 0.25 mg (0.4 mL) subcut QWEEK 4 10/11/22 mg/3 mL) subcutaneous pen injector weeks #3 mL (Ozempic) dicyclomine 20 mg tablet 20 mg PO QID PRN abdominal pain 10/13/22 #20 tabs loperamide 2 mg tablet (Imodium 2 mg PO Q6H PRN loose stool #14 10/13/22 A-D) tabs ondansetron 4 mg disintegrating 4 mg PO Q6-8H PRN nausea and 10/13/22 tablet vomiting #7 tabs Allergies Allergy/AdvReac Type Severity Reaction Status Date / Time cat dander [cats] Allergy Rash Verified 10/13/22 14:20 kiwi Allergy Anaphylaxis Verified 10/13/22 14:20 Review of Systems Review of Systems: Yes all other systems are reviewed and are negative PMFSH Past Medical History Medical History Allergic rhinitis Asthma COVID-19 vaccine administered FH: ovarian cancer in first degree relative History of asthma History of depression History of posttraumatic stress disorder (PTSD) Hx of insomnia Hypertriglyceridemia Osteoarthritis of left knee Recovering alcoholic Trigger thumb of left hand Surgical History H/O elbow surgery History of biopsy History of blepharoplasty History of bunionectomy History of hand surgery Hx of tubal ligation Family History Family History Father Lung cancer Mother Afib Sister Ovarian cancer Other Mental health disorder Substance use disorder Social History Social History Housing: Apartment Are you a primary doggy daycare activities director to a significant other at home: No Do you presently have visiting nurse or other home services: No Alcohol intake: former Patient Tobacco Use Status: Former Tobacco user Quit Date: 15 yrs ago Tobacco use type: Cigarette e-Cigarette/Vaping Use: Never Used Second Hand Smoke Exposure: Yes Substance Use Type: Marijuana Advance Directives: No Advance Directives Information Provided: No service: No Current occupational status: unemployed Cognitive needs: No Hearing needs: No Vision needs: Yes (glasses) Physical Exam Vital Signs: Vital Signs: Last Vital Signs Temp 98 F 10/13/22 17:46 Pulse 53 10/13/22 17:46 Resp 16 10/13/22 17:46 BP 156/80 H 10/13/22 17:46 Pulse Ox 96 10/13/22 17:46 O2 Del Method Room Air 10/13/22 17:46 BMI result Body Mass Index 28.2 Appearance: Alert. Oriented X3. No acute distress. ENT: Pharynx normal. Oral Mucosa moist Neck: Normal inspection. Neck supple. CVS: Normal heart rate and rhythm. Pulses normal. Respiratory: No respiratory distress. Equal air entry bilateral, Abdomen: Soft and nontender. Bowel sounds are present, no mass palpable, no CVA tenderness Skin: Skin warm and dry. Normal skin color. Normal skin turgor. Extremities: No lower extremity edema. No calf tenderness Neuro: Oriented X 3. No motor deficit. Medications Administered Discontinued Medications Generic Name Dose Route Start Last Admin Trade Name Freq PRN Reason Stop Dose Admin Dicyclomine HCl 20 mg 10/13/22 17:02 10/13/22 17:49 Dicyclomine Hcl 10 Mg Capsule PO 10/13/22 17:03 20 mg ONCE ONE Administration Loperamide HCl 2 mg 10/13/22 17:02 10/13/22 17:49 Loperamide Hcl 2 Mg Capsule PO 10/13/22 17:03 2 mg ONCE ONE Administration Ondansetron HCl 4 mg 10/13/22 17:02 10/13/22 17:49 Ondansetron Odt 4 Mg Tab.Rapdis TRANSLINGU 10/13/22 17:03 4 mg ONCE ONE Administration Medical Decision Making Medical Decision Making [facility] Narrative: Patient likely with viral diarrhea labs are stable discharge patient home supportive treatment Lab Data [facility] Lab Attestation statement: I reviewed the patient's lab results. 10/13/22 14:45 10/13/22 14:45 Labs: Lab Results 10/13/22 10/13/22 Range/Units 14:45 14:45 WBC 9.1 (4.8-10.8) X10*3/uL RBC 4.51 (4.20-5.50) X10*6/uL Hgb 13.5 (12.0-16.0) g/dl Hct 40.9 (37.0-47.0) % MCV 90.7 (80.0-98.0) fL MCH 29.9 (27.0-33.0) pg MCHC 33.0 (31.0-35.0) g/dl RDW 13.3 (11.0-16.0) % Plt Count 359 (160-400) X10*3/uL MPV 8.9 L (9.4-12.3) fL Immature Gran % (Auto) 0.2 (0.0-0.4) % Neut % (Auto) 64.5 (45-73) % Lymph % (Auto) 23.0 (20-40) % [place] % (Auto) 9.3 (2-11) % Eos % (Auto) 2.6 (0-4) % Baso % (Auto) 0.4 (0-2) % Lymph # (Auto) 2.1 (1.2-4.9) X10*3/uL [place] # (Auto) 0.9 (0.1-1.2) X10*3/uL Eos # (Auto) 0.2 (0.0-0.4) X10*3/uL Baso # (Auto) 0.0 (0.0-0.2) X10*3/uL Abs Immat Gran (auto) 0.02 (0.00-0.03) X10*3/uL Absolute Neuts (auto) 5.9 (2.0-8.3) x10*3/uL Absolute Nucleated RBC 0.000 (0.0-0.012) X10*3/uL Nucleated RBC % (auto) 0.0 (0.0-0.2) /100WBC Sodium 139 (135-145) mmol/L Potassium 4.2 (3.3-5.1) mmol/L Chloride 104 (96-108) mmol/L Carbon Dioxide 28 (22-29) mmol/L Anion Gap 11 L (12-20) BUN 13 (9-16) mg/dL Creatinine 0.88 (0.5-1.4) mg/dL Estim Creat Clear Calc 62.2 Estimated GFR > 60 Random Glucose 94 (60-115) mg/dL Calcium 10.0 D (8.4-10.2) mg/dL Discharge Plan Discharge Clinical Impression: Gastroenteritis Patient Disposition: Home, Self-Care Instructions: Gastroenteritis (ED) Additional Instructions: Drink plenty of fluid Medication for diarrhea and nausea as prescribed Prescriptions: New loperamide [Imodium A-D] 2 mg tablet 2 mg PO Q6H PRN (Reason: loose stool) Qty: 14 0RF dicyclomine 20 mg tablet 20 mg PO QID PRN (Reason: abdominal pain) Qty: 20 0RF ondansetron 4 mg tablet,disintegrating 4 mg PO Q6-8H PRN (Reason: nausea and vomiting) Qty: 7 0RF No Action acetaminophen [Mapap Arthritis Pain] 650 mg tablet extended release 650 mg PO DAILY PRN (Reason: pain) Qty: 60 6RF fluoxetine 40 mg capsule 40 mg PO DAILY 90 Days Qty: 90 2RF lamotrigine 200 mg tablet 300 mg PO DAILY 90 Days Qty: 135 2RF trazodone 100 mg tablet 100 mg PO BEDTIME Qty: 90 2RF Ozempic 0.25 mg or 0.5 mg (2 mg/3 mL) pen injector 0.25 mg subcut QWEEK 28 Days Qty: 3 0RF Rx Instructions: for 4 weeks albuterol sulfate [Ventolin HFA] 90 mcg/actuation HFA aerosol inhaler 1 inh inhalation QID 30 Days Qty: 8.5 3RF fluticasone propionate [Flonase Allergy Relief] 50 mcg/actuation spray,suspension 1 spray intranasal BID 30 Days Qty: 16 3RF Rx Instructions: administer into each nostril Advair HFA 115-21 mcg/actuation HFA aerosol inhaler 2 puff inhalation BID 30 Days Qty: 12 4RF prednisone 10 mg tablet 10 mg PO DAILY Qty: 28 0RF Rx Instructions: 6 pills by mouth day 1, 6 pills by mouth day 2, 5 pills by mouth day 3, 4 pills by mouth day 4, 3 pills by mouth day 5, 2 pills by mouth day 6, 1 pill by mouth day 7 and 1 pill by mouth day 8. pilocarpine HCl 7.5 mg tablet 7.5 mg PO ONCE cetirizine 10 mg tablet 10 mg PO DAILY cholecalciferol (vitamin D3) 25 mcg (1,000 unit) capsule 25 mcg PO DAILY B-complex with vitamin C Tablet 1 tab PO DAILY Complete Multivitamin Tablet 1 tab PO DAILY Interventions: ED Discharge Assessment Last Done: 10/13/22 17:51 Discharge Date/Time: 10/13/22 17:52
[2022-10-13 17:46] VITALS: BP 156/80; PULSE 53; RESP 16; TEMP 36.6; O2SAT 96
== END 2022-10-13 17:52 | disposition home or self-care (01) ==
PROVIDERS: Emergency Provider Internal Medicine; PCP Physician Assistant
DX: K52.9 Noninfective gastroenteritis and colitis, unspecified (principal); R11.2 Nausea with vomiting, unspecified; Z87.891 Personal history of nicotine dependence; Z79.899 Other long term (current) drug therapy
CPT/HCPCS: 36415; 80048; 85025; 99284

== ENCOUNTER 2022-12-13 09:05 | Outpatient (REF) | payer OTHER, SELFPAY ==
[2022-12-13 11:36] LABS: Hemoglobin 13.1 g/dl (12.0-16.0); Mean Corpuscular HGB Conc 32.8 g/dl (31.0-35.0); Mean Corpuscular Volume 91.5 fL (80.0-98.0); Mean Platelet Volume 9.6 fL (9.4-12.3); Platelet Count 386 X10*3/uL (160-400); Red Blood Count 4.37 X10*6/uL (4.20-5.50); Red Cell Distribution Width 13.8 % (11.0-16.0); White Blood Count 7.4 X10*3/uL (4.8-10.8)
[2022-12-13 12:35] LABS: Alanine Aminotransferase 16 U/L (0-31); Albumin Level 4.2 g/dL (3.5-5.0); Alkaline Phosphatase 55 U/L (39-117); Anion Gap 10 (12-20); Aspartate Amino Transferase 23 U/L (5-31); Bilirubin Total 0.4 mg/dL (0.0-1.0); Blood Urea Nitrogen 15 mg/dL (9-16); Calcium 9.4 mg/dL (8.4-10.2); Carbon Dioxide 27 mmol/L (22-29); Chloride 107 mmol/L (96-108); Cholesterol 213 mg/dL (<200); Estimated Glomerular Filt Rate > 60; Glucose Fasting 89 mg/dL (60-99); HDL Cholesterol 52 mg/dL (>40); LDL Cholesterol Calculated 144 mg/dL (<100); Potassium 3.9 mmol/L (3.3-5.1); Sodium 140 mmol/L (135-145); Total Protein 6.8 g/dL (6.5-8.0); Triglycerides 88 mg/dL (<150)
== END 2022-12-13 09:06 | disposition home or self-care (01) ==
LOC: HO.HMGCLDS 09:05
PROVIDERS: PCP Physician Assistant; Visit Provider Physician Assistant
DX: E78.9 Disorder of lipoprotein metabolism, unspecified (principal)
CPT/HCPCS: 36415; 80053; 80061; 85027

== ENCOUNTER 2022-12-16 15:00 | Outpatient (AMB) | payer OTHER, SELFPAY ==
--- NOTE | 2022-12-16 15:05 | MHC.PC.OV ---
Vital Signs 12/16/22 15:06 Height 5 ft 2 in Weight 147 lb 4 oz BMI 26.9 BP 140/84 H Blood Pressure Location Lt brachial Position Sitting Respiration 16 Pulse 73 Pulse Source Pulse Oximeter Pulse Oximetry (%) 96 Oxygen Delivery Method Room Air Intake Visit Reasons: f/u HLD/ weight check Intake Note: Patient is here to follow up on HLD and weight check. 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 Accompanied by: Self / Same As Patient Allergies cat dander [cats] Allergy (Verified 12/16/22 15:14) Rash kiwi Allergy (Verified 12/16/22 15:14) Anaphylaxis Medication List - Last Reconciled 12/16/22 by Josemanuel Stroud PA-C acetaminophen ER (Mapap Arthritis Pain) 650 mg PO DAILY PRN albuterol sulfate 90 mcg/actuation (Ventolin HFA) 1 inh inhalation QID 30 days B-complex with vitamin C 1 tab PO DAILY cetirizine 10 mg PO DAILY cholecalciferol (vitamin D3) 25 mcg PO DAILY dicyclomine 20 mg PO QID PRN fluoxetine 40 mg PO DAILY 90 days fluticasone propion-salmeterol 115-21 mcg/actuation (Advair HFA) 2 puffs inhalation BID 30 days fluticasone propionate 50 mcg/actuation (Flonase Allergy Relief) 1 spray intranasal BID 30 days lamotrigine 300 mg (1.5 x 200 mg) PO DAILY 90 days loperamide (Imodium A-D) 2 mg PO Q6H PRN multivitamin,gr-gjve-zsaaxjpi (Complete Multivitamin tablet) 1 tab PO DAILY ondansetron 4 mg PO Q6-8H PRN pilocarpine HCl 7.5 mg PO ONCE semaglutide (Ozempic) 0.25 mg (0.368 mL) subcut QWEEK 4 weeks trazodone 100 mg PO BEDTIME Tobacco use date assessed: 09/17/22 Dental Screening Dental Screen Date: 12/16/22 Did you have a dental visit in the last 12 months?: Yes Did you have a dental problem in the last 6 months where you did not have access to dental care?: No Was dental information given to patient?: Patient has dentist HPI f/u HLD/ weight check HPI Details Patient is a 62-year-old female here today for follow-up visit. Patient has a past medical history significant for asthma, borderline high total cholesterol, generalized anxiety disorder, major depressive disorder. / Borderline high cholesterol: Most recent lipid panel showing improved cholesterol has been working on lifestyle modifications on reducing her eye cholesterol foods. .. Asthma: Has been well controlled as of late, and daily use of Advair has been helpful. She rarely has to use her albuterol inhaler. .. Anxiety /depression: She reports depression has been worse over the last summer. She has been working with a mental health therapist. On high dose of SSRI therapy. She believes she is still going through grief from loss of her sister. .. Obesity: Has been started on Ozempic and has been able to lose a significant amount of weight. Now BMI of 26.9 and 147 lb. Her goal weight is to be on 135 lb thus will increase dose of Ozempic. [facility] Medical History (Updated 12/16/22 @ 15:25 by Josemanuel Stroud PA-C) Osteoarthritis of left knee Allergic rhinitis COVID-19 vaccine administered Trigger thumb of left hand Asthma Hypertriglyceridemia FH: ovarian cancer in first degree relative History of asthma Recovering alcoholic Hx of insomnia History of depression History of posttraumatic stress disorder (PTSD) Surgical History History of hand surgery History of blepharoplasty History of biopsy Hx of tubal ligation H/O elbow surgery History of bunionectomy Family History Father Lung cancer Mother Afib Sister Ovarian cancer Other Mental health disorder Substance use disorder Social History Housing: Apartment Are you a primary post acute care registered nurse to a significant other at home: No Do you presently have visiting nurse or other home services: No Alcohol intake: former Patient Tobacco Use Status: Former Tobacco user Quit Date: 15 yrs ago Tobacco use type: Cigarette e-Cigarette/Vaping Use: Never Used Second Hand Smoke Exposure: Yes Substance Use Type: Marijuana service: No Current occupational status: unemployed Cognitive needs: No Hearing needs: No Vision needs: Yes (glasses) Female Reproductive History Menstrual Age of Menarche: 14 Questionnaire Thrive Questionnaire Date Thrive assessed: 09/17/22 JETHRO-7 AMB Questionnaire JETHRO-7 Date JETHRO - 7 assessed: 09/17/22 Source: Developed by Drs. Sarwat Ledezma, Shannon Rock, Win Peralta and colleagues, with an educational heather from [employer]. ACT Questionnaire In the past 4 weeks, how much of the time did your asthma keep you from getting as much done at work, school or at home?: None of the time During the past 4 weeks, how often have you had shortness of breath?: Not at all During the past 4 weeks, how often did your asthma symptoms wake you up at night or earlier than usual in the morning?: Not at all During the past 4 weeks, how often have you had to use your rescue inhaler or nebulizer medication?: Once a week or less How would you rate your asthma control during the past 4 weeks?: Well controlled ACT Interpretation: Negative Score: 23 Review of Systems Const Denies headache(s) Eyes Denies loss of vision ENT Denies vertigo, Denies dizziness, Denies headache(s) and Denies sore throat Card Denies chest pain, Denies leg edema and Denies lightheadedness Resp Denies cough, Denies hemoptysis and Denies wheezing GI Denies abdominal pain, Denies melena, Denies constipation, Denies diarrhea and Denies vomiting Denies urinary frequency, Denies dysuria and Denies urinary urgency Musc Denies arthralgias, Denies joint swelling, Denies numbness and Denies tingling Neuro Denies Abnormal speech present, Denies behavioral changes, Denies vertigo, Denies dizziness, Denies headache(s), Denies loss of vision, Denies memory loss, Denies numbness and Denies tingling Psych Denies anxiety, Denies behavioral changes, Denies depression, Denies memory loss and Denies panic attacks Daniel/Lymph Denies easy bleeding and Denies easy bruising Aller/Immun Denies wheezing Physical exam (Primary Care) Vital Signs: Last Vital Signs Pulse 73 12/16/22 15:06 Resp 16 12/16/22 15:06 BP 140/84 H 12/16/22 15:06 Pulse Ox 96 12/16/22 15:06 Oxygen Delivery Method Room Air 12/16/22 15:06 BMI result Body Mass Index 26.9 Tobacco/Smoking Status: Tobacco use Status Tobacco use date assessed 09/17/22 12/16/22 15:10 Patient Tobacco Use Status Former Tobacco user 12/16/22 15:10 Tobacco use type Cigarette 12/16/22 15:10 e-Cigarette/Vaping Use Never Used 12/16/22 15:10 Thrive Assessment: Date of Thrive Assessment Date Thrive assessed 09/17/22 12/16/22 15:10 Const General: healthy appearing, no acute distress, alert and awake Nutritional Appearance: well nourished Orientation/consciousness: oriented to person, oriented to place and oriented to time HENMT Ears: TM's normal bilaterally General nose exam: Normal nasal mucous membranes and turbinates present Eyes Conjunctivae: conjunctivae normal Sclerae: sclerae normal Pupils: Equal, round and reactive pupils present Neck Neck: Yes no lymphadenopathy and Yes no JVD Thyroid: Thyroid normal Carotids: no bruits Resp Effort & Inspection: normal respiratory effort and not tachypneic Auscultation: no crackles, no rales, no rhonchi and no wheezes Cardio Rate: regular rate Rhythm: regular rhythm Heart sounds: no murmurs and normal S1 and S2 GI Palpation (GI): Soft to palpation, nontender, no hepatomegaly and no splenomegaly Auscultation: normal bowel sounds Skin General skin exam: no rashes or lesions noted and dry skin Neuro General: oriented to person, oriented to place and oriented to time Cranial nerves: Yes Equal, round and reactive pupils present Speech: No Abnormal speech present Gait exam (Neuro): Normal gait present Motor exam (neuro): no tremor noted Extrem Right upper extremity: full ROM Left upper extremity: full ROM Right lower extremity: full ROM; no edema Left lower extremity: full ROM; no edema Psych Mental Status: mental status grossly normal Speech and movement: Normal speech and movement present Affect: normal affect Attitude: cooperative Thought process: Normal thought process present Assessment and Plan Assessment & Plan (1) Borderline high cholesterol: Code(s): E78.9 - Disorder of lipoprotein metabolism, unspecified Plan: Patient's most recent lipid panel showing improved total cholesterol and LDL. Will continue lifestyle modifications continued weight loss to help control her borderline high cholesterol. (2) Obese: Code(s): E66.9 - Obesity, unspecified Qualifiers: Body mass index: BMI 30.0-30.9 Obesity classification: adult class 1 (BMI 30 - 34.9) Obesity type: due to excess calories Serious obesity comorbidity presence: without serious comorbidity Qualified Code(s): E66.09 - Other obesity due to excess calories; Z68.30 - Body mass index [BMI] 30.0-30.9, adult Plan: Patient has been started on Ozempic and has noted weight loss. Her goal is to be 135 lb thus will increase dose of Ozempic for more weight loss. She also has made dietary changes (3) Asthma: Code(s): J45.909 - Unspecified asthma, uncomplicated Qualifiers: Asthma complication type: uncomplicated Asthma persistence: intermittent Asthma severity: mild Qualified Code(s): J45.20 - Mild intermittent asthma, uncomplicated Plan: Patient reports her asthma has been well controlled with only p.r.n. use her albuterol inhaler and daily use of her Advair. Denies any nighttime awakenings with asthma symptoms. (4) Osteoarthritis of left knee: Code(s): M17.12 - Unilateral primary osteoarthritis, left knee Qualifiers: Osteoarthritis type: primary Qualified Code(s): M17.12 - Unilateral primary osteoarthritis, left knee Plan: Needs new left support knee brace script. Orders: Orders Lipid Panel 12/16/22 E78.9 - Disorder of lipoprotein metabolism, unspecified Comprehensive [place]. Panel Fast 12/16/22 E78.9 - Disorder of lipoprotein metabolism, unspecified Complete Blood Count no Diff 12/16/22 E78.9 - Disorder of lipoprotein metabolism, unspecified Medications: New semaglutide 1 mg (0.75 mL) subcut QWEEK 4 weeks 3 mL 1RF E66.09 - Other obesity due to excess calories, Z68.30 - Body mass index [BMI] 30.0-30.9, adult leg brace (Knee Support Brace) Need for left support knee brace 1 ea 0RF M17.12 - Unilateral primary osteoarthritis, left knee Refilled trazodone 100 mg PO BEDTIME 90 tabs 2RF E66.09 - Other obesity due to excess calories, Z68.30 - Body mass index [BMI] 30.0-30.9, adult acetaminophen ER (Mapap Arthritis Pain) 650 mg PO DAILY PRN 60 tabs 6RF pain E66.09 - Other obesity due to excess calories, Z68.30 - Body mass index [BMI] 30.0-30.9, adult On Hold semaglutide (Ozempic) Hold Comment: Doctor's Order 0.25 mg (0.368 mL) subcut QWEEK 4 weeks 3 mL 0RF E66.09 - Other obesity due to excess calories, Z68.30 - Body mass index [BMI] 30.0-30.9, adult Coding Level of Care Code Est Pt Level 4 (38365) Diagnoses Borderline high cholesterol E78.9 Class 1 obesity due to excess calories without serious comorbidity with body mass index (BMI) of 30.0 to 30.9 in adult E66.09; Z68.30 Body mass index: BMI 30.0-30.9 Obesity classification: adult class 1 (BMI 30 - 34.9) Obesity type: due to excess calories Serious obesity comorbidity presence: without serious comorbidity Mild intermittent asthma without complication J45.20 Asthma complication type: uncomplicated Asthma persistence: intermittent Asthma severity: mild Primary osteoarthritis of left knee M17.12 Osteoarthritis type: primary
[2022-12-16 15:06] VITALS: BP 140/84; PULSE 73; RESP 16; O2SAT 96; BMI 26.9
== END 2022-12-16 15:40 | disposition home or self-care (01) ==
PROVIDERS: PCP Physician Assistant; Visit Provider Physician Assistant
DX: E78.9 Disorder of lipoprotein metabolism, unspecified (principal); E66.09 Other obesity due to excess calories; Z68.30 Body mass index [BMI] 30.0-30.9, adult; J45.20 Mild intermittent asthma, uncomplicated; M17.12 Unilateral primary osteoarthritis, left knee
CPT/HCPCS: 99214

== ENCOUNTER 2023-01-27 17:52 | Emergency (ER) | payer OTHER, SELFPAY ==
[2023-01-27 19:15] VITALS: BP 153/77; PULSE 68; RESP 18; TEMP 36.7; O2SAT 95; BMI 26.3
--- NOTE | 2023-01-27 19:23 | ED.GENADULT ---
HPI - General Adult General Chief complaint: Animal Bite Stated complaint: dog bite Time Seen by Provider: 01/27/23 19:23 Source: patient Mode of arrival: ambulatory Limitations: no limitations History of Present Illness HPI narrative: Patient is a 63 year old assigned female at with a history of MDD presenting to the emergency department today with a dog bite to the right hand. Patient states that her dog bit her hand when she went to move him. Patient states that she is up to date on tetanus and the dog is up to date on all vaccinations. Patient denies any dizziness, lightheadedness, abdominal pain, nausea, vomiting, fever, chills, blurry vision, double vision, loss of vision, chest pain, difficulty breathing, shortness of breath, back pain, night sweats, pain with urination, increased urinary frequency, increased urinary urgency, blood in her urine or stool, syncope or a near syncopal episode, bowel incontinence, bladder incontinence, bowel retention, bladder retention, or any other complaints at this time. Onset (ago): minute(s) Location: right and upper extremity Radiation: non-radiation Severity: mild Severity scale (1-10): 3 Quality: aching and dull Pain Consistency: constant Relieving factors: none Exacerbating factors: none Associated symptoms: denies other symptoms Treatments prior to arrival: none Related Data Home Medications Medication Instructions Recorded Confirmed B-complex with vitamin C 1 tab PO DAILY 01/25/20 12/16/22 cetirizine 10 mg tablet 10 mg PO DAILY 01/25/20 12/16/22 cholecalciferol (vitamin D3) 25 25 mcg PO DAILY 01/25/20 12/16/22 mcg (1,000 unit) capsule multivitamin,[id number]-yntd-hexnmxqs 1 tab PO DAILY 01/25/20 12/16/22 (Complete Multivitamin tablet) pilocarpine HCl 7.5 mg tablet 7.5 mg PO ONCE 03/18/22 12/16/22 Previous Rx's Medication Instructions Recorded fluoxetine 40 mg capsule 40 mg PO DAILY 90 days #90 caps 03/10/22 lamotrigine 200 mg tablet 300 mg (1.5 x 200 mg) PO DAILY 90 03/10/22 days #135 tabs albuterol sulfate 90 mcg/actuation 1 inh inhalation QID 30 days #8.5 10/11/22 aerosol inhaler (Ventolin HFA) grams fluticasone propionate 50 1 spray intranasal BID 30 days #16 10/11/22 mcg/actuation nasal grams spray,suspension (Flonase Allergy Relief) dicyclomine 20 mg tablet 20 mg PO QID PRN abdominal pain 10/13/22 #20 tabs loperamide 2 mg tablet (Imodium 2 mg PO Q6H PRN loose stool #14 10/13/22 A-D) tabs ondansetron 4 mg disintegrating 4 mg PO Q6-8H PRN nausea and 10/13/22 tablet vomiting #7 tabs fluticasone propionate 115 2 puff inhalation BID 30 days #12 10/15/22 mcg-salmeterol 21 mcg/actuation grams HFA inhaler (Advair HFA) semaglutide 0.25 mg or 0.5 mg (2 0.25 mg (0.368 mL) subcut QWEEK 4 12/08/22 mg/3 mL) subcutaneous pen injector weeks #3 mL (Ozempic) acetaminophen 650 mg 650 mg PO DAILY PRN pain #60 tabs 12/16/22 tablet,extended release (Mapap Arthritis Pain) leg brace (Knee Support Brace) #1 ea 12/16/22 semaglutide 1 mg/dose (2 mg/1.5 1 mg (0.75 mL) subcut QWEEK 4 12/16/22 mL) subcutaneous pen injector weeks #3 mL trazodone 100 mg tablet 100 mg PO BEDTIME #90 tabs 12/16/22 amoxicillin 875 mg-potassium 1 tab PO BID 10 days #20 tabs 01/27/23 clavulanate 125 mg tablet Allergies Allergy/AdvReac Type Severity Reaction Status Date / Time cat dander [cats] Allergy Rash Verified 12/16/22 15:14 kiwi Allergy Anaphylaxis Verified 12/16/22 15:14 Review of Systems Constitutional: Constitutional: Reports no additional constitutional complaints, Denies chills, Denies fever(s) and Denies night sweats Eyes: Eyes: Reports no additional eye complaints, Denies blurry vision, Denies change in vision, Denies diplopia, Denies eye discharge, Denies loss of vision and Denies eye pain ENT: Denies dizziness Cardiovascular: Cardiovascular: Reports no additional cardiovascular complaints, Denies chest pain, Denies lightheadedness, Denies Loss of Consciousness and Denies dyspnea Respiratory: Respiratory: Reports no additional respiratory complaints and Denies dyspnea Gastrointestinal: Gastrointestinal: Reports no additional gastrointestinal complaints, Denies abdominal pain, Denies melena, Denies hematochezia, Denies change in bowel habits and Denies change in stool character Genitourinary: Genitourinary: Denies hematuria, Denies urinary frequency, Denies dysuria, Denies urinary incontinence, Denies urinary hesitancy and Denies urinary urgency Musculoskeletal: Musculoskeletal: Reports no additional musculoskeletal complaints, Denies numbness and Denies tingling Comments: puncture wound to the right hand Neurologic: Denies dizziness, Denies loss of vision, Denies numbness and Denies tingling Psychiatric: Psychiatric: Reports no additional psychiatric complaints Endocrine: Endocrine: Reports no additional endocrine complaints Hematologic/Lymphatic: Hematologic/Lymphatic: Reports no additional hematologic/lymphatic complaints Allergic/Immunologic: Allergic/Immunologic: Reports no additional allergic/immunologic complaints PMFSH Past Medical History Attestation statement: The following information was validated with the patient. Source: old records reviewed and nursing notes reviewed Medical History Osteoarthritis of left knee Allergic rhinitis COVID-19 vaccine administered Trigger thumb of left hand Asthma Hypertriglyceridemia FH: ovarian cancer in first degree relative History of asthma Recovering alcoholic Hx of insomnia History of depression History of posttraumatic stress disorder (PTSD) Surgical History History of hand surgery History of blepharoplasty History of biopsy Hx of tubal ligation H/O elbow surgery History of bunionectomy Family History Family History Father Lung cancer Mother Afib Sister Ovarian cancer Other Mental health disorder Substance use disorder Social History Social History Housing: Apartment Are you a primary urgent care nurse practitioner to a significant other at home: No Do you presently have visiting nurse or other home services: No Alcohol intake: former Patient Tobacco Use Status: Former Tobacco user Quit Date: 15 yrs ago Tobacco use type: Cigarette Smoked in Last 30 Days: No e-Cigarette/Vaping Use: Never Used Second Hand Smoke Exposure: Yes Use of substances other than those prescribed or required for medical reasons: Yes Substance Use Type: Marijuana Advance Directives: No Advance Directives Information Provided: No service: No Current occupational status: unemployed Cognitive needs: No Hearing needs: No Vision needs: Yes (glasses) Physical Exam ED Vital Signs: Vital Signs - 24 hr 01/27/23 19:15 Temperature 98.1 F Pulse Rate 68 Respiratory Rate 18 Blood Pressure 153/77 H Pulse Oximetry 95 Oxygen Delivery Method Room Air BMI result Body Mass Index 26.3 Const General: cooperative, no acute distress, alert and awake Nutritional Appearance: well nourished Orientation/consciousness: patient oriented x3 Limitations: no limitations HENMT Head: Yes normal to inspection and Yes atraumatic Ears: hearing grossly normal bilaterally and external ears normal General nose exam: Normal external nose present, no nasal discharge noted and no epistaxis Face and sinus: Yes normal facial exam, No abrasion and No laceration Mouth: Normal oral and palatal mucosa present, no drooling and no muffled voice Eyes General: appearance normal, both eyes and all related structures Periorbital: periorbital findings normal Eyelids: Yes eyelids normal Conjunctivae: conjunctivae normal Pupils: Equal, round and reactive pupils present EOM: EOMs intact bilaterally Neck Neck: Yes normal visual inspection, Yes full ROM and Yes no lymphadenopathy Chest Chest palpation & inspection: normal inspection of the chest Resp Effort & Inspection: normal respiratory effort and able to speak in complete sentences GI Inspection: Yes normal to inspection Neuro General: patient oriented x3 and moves all extremities Cranial nerves: Yes Equal, round and reactive pupils present Cognition (Neuro): normal cognition Motor exam (neuro): 5/5 motor strength present throughout Sensory Exam: Normal double simultaneous stimulation for sensation Coordination: weuddi-nz-giir test normal Extrem Other: small puncture wound to the right dorsal hand and right hypothenar emesis General: Yes full ROM and Yes capillary refill normal Psych Appearance: grossly normal Mental Status: mental status grossly normal Affect: normal affect Attitude: cooperative Thought process: Normal thought process present Thought content: Normal thought content present Insight: Good insight present (Psych) Medications Administered Discontinued Medications Generic Name Dose Route Start Last Admin Trade Name Freq PRN Reason Stop Dose Admin Amoxicillin/Clavulanate Potassium 875 mg 01/27/23 19:23 01/27/23 19:33 Amoxicillin/Potassium Clav 875 Mg Tablet PO 01/27/23 19:24 875 mg ONCE ONE Administration Medical Decision Making Medical Decision Making [facility] Narrative: Patient is a 63 year old assigned female at with a history of MDD presenting to the emergency department today with a dog bite to the right hand. Patient's physical exam was as noted in the physical exam portion of this note. Patient's right hand was thoroughly cleaned and the patient was given a dose of PO Augmentin. I explained my physical exam findings as well as all test results to the patient. I answered all questions asked by the patient. I stressed the importance of the patient taking her medication as prescribed. I stressed the importance of the patient following up with her primary care provider. I stressed the importance of the patient returning to the emergency department immediately if her symptoms were to worsen or if she were to develop any dizziness, shortness of breath, difficulty breathing, chest pain, blurry vision, loss of vision, nausea, vomiting, abdominal pain, fever, chills, back pain, or any other complaints. Patient verbalized agreement and understanding with this treatment plan and discharge. Differential Diagnosis Differential Diagnoses: The differential diagnosis associated with the presentation includes Dog bite Prescription Management I considered prescription management with: Antibiotic (patient prescribed an antibiotic for the dog bite.) Discharge Plan Discharge Clinical Impression: Dog bite Patient Disposition: Home, Self-Care Instructions: Animal Bite (ED) Additional Instructions: Follow up with your primary care provider. Return to the emergency department immediately if your symptoms worsen or if you develop any dizziness, shortness of breath, difficulty breathing, chest pain, blurry vision, loss of vision, nausea, vomiting, abdominal pain, fever, chills, back pain, or any other complaints. Prescriptions: New amoxicillin-pot clavulanate 875-125 mg tablet 1 tab PO BID 10 Days Qty: 20 0RF No Action fluoxetine 40 mg capsule 40 mg PO DAILY 90 Days Qty: 90 2RF lamotrigine 200 mg tablet 300 mg PO DAILY 90 Days Qty: 135 2RF albuterol sulfate [Ventolin HFA] 90 mcg/actuation HFA aerosol inhaler 1 inh inhalation QID 30 Days Qty: 8.5 3RF fluticasone propionate [Flonase Allergy Relief] 50 mcg/actuation spray,suspension 1 spray intranasal BID 30 Days Qty: 16 3RF Rx Instructions: administer into each nostril Advair HFA 115-21 mcg/actuation HFA aerosol inhaler 2 puff inhalation BID 30 Days Qty: 12 4RF Ozempic 0.25 mg or 0.5 mg (2 mg/3 mL) pen injector 0.25 mg subcut QWEEK 28 Days Qty: 3 0RF Hold Instructions: Doctor's Order Rx Instructions: for 4 weeks loperamide [Imodium A-D] 2 mg tablet 2 mg PO Q6H PRN (Reason: loose stool) Qty: 14 0RF dicyclomine 20 mg tablet 20 mg PO QID PRN (Reason: abdominal pain) Qty: 20 0RF ondansetron 4 mg tablet,disintegrating 4 mg PO Q6-8H PRN (Reason: nausea and vomiting) Qty: 7 0RF pilocarpine HCl 7.5 mg tablet 7.5 mg PO ONCE semaglutide 1 mg/dose (2 mg/1.5 mL) pen injector 1 mg subcut QWEEK 28 Days Qty: 3 1RF trazodone 100 mg tablet 100 mg PO BEDTIME Qty: 90 2RF acetaminophen [Mapap Arthritis Pain] 650 mg tablet extended release 650 mg PO DAILY PRN (Reason: pain) Qty: 60 6RF (DME) Knee Support Brace Misc See Rx Instructions .Route Qty: 1 0RF Rx Instructions: Need for left support knee brace cetirizine 10 mg tablet 10 mg PO DAILY cholecalciferol (vitamin D3) 25 mcg (1,000 unit) capsule 25 mcg PO DAILY B-complex with vitamin C Tablet 1 tab PO DAILY Complete Multivitamin Tablet 1 tab PO DAILY Referrals: Josemanuel Stroud PA-C [Primary Care Provider] - Interventions: ED Discharge Assessment Last Done: 01/27/23 20:11 Discharge Date/Time: 01/27/23 20:11 Print Language: Yi
[2023-01-27] MEDS: Amoxicillin/Potassium Clav 875 MG TABLET PO (19:33)
--- NOTE | 2023-01-27 20:10 | PC.NURSE ---
dry clean dressing placed on bites on right hand. pt tolerated well. pt calm and cooperative. ambulatory at discharge. pt provided with discharge packet. pt verbalized understanding of discharge plan
== END 2023-01-27 20:11 | disposition home or self-care (01) ==
PROVIDERS: Emergency Provider Emergency Medicine; PCP Physician Assistant
DX: S61.451A Open bite of right hand, initial encounter (principal); W54.0XXA Bitten by dog, initial encounter; Y93.9 Activity, unspecified; Y92.9 Unspecified place or not applicable; Y99.9 Unspecified external cause status; Z79.899 Other long term (current) drug therapy; Z87.891 Personal history of nicotine dependence
CPT/HCPCS: 99283; 99284

== ENCOUNTER 2023-01-28 12:32 | Observation (INO) | payer OTHER, SELFPAY ==
--- NOTE | ~2023-01-28 | XR_ITS ---
EXAMINATION: XR WRIST, RIGHT XR HAND, RIGHT CLINICAL INFORMATION: Pain. COMPARISON: None available. TECHNIQUE: PA, lateral, and oblique views of the right wrist and PA, lateral, and oblique views of the right hand FINDINGS: RIGHT WRIST: The bones and soft tissues are normal. No fracture. Alignment is anatomic. Joint spaces are maintained. No erosions or soft tissue calcifications. RIGHT HAND: There is mild loss of PIP joint second through fifth digits with mild periarticular spurring in the second and likely third digit. The PIP and MCP joint space is maintained normal. No visible acute fracture, dislocation or subluxation seen. The soft tissues are normal. XR/XR hand wrist RT IMPRESSION: Normal right hand and wrist.
[2023-01-28 12:37] VITALS: BP 134/66; PULSE 75; RESP 20; TEMP 36.7; O2SAT 95; BMI 26.3
--- NOTE | 2023-01-28 12:40 | ED.GENADULT ---
HPI - General Adult General Chief complaint: Nausea/Vomiting/Diarrhea Stated complaint: dog bite Time Seen by Provider: 01/28/23 14:13 Source: patient Mode of arrival: ambulatory Limitations: no limitations History of Present Illness HPI narrative: Patient is a 63-year-old right-hand dominant female presenting to the emergency department with complaint of nausea and vomiting after starting antibiotics for a dog bite. Patient was seen in this ED yesterday and given a dose of Augmentin while in the ED. Patient states that she went home, ate dinner and then around 11:00 p.m. developed nausea and vomiting. States she was able to take a.m. dose of Augmentin today with a banana but continues to have nausea. Also complains of new erythema and tenderness surrounding the puncture wounds. Denies fevers/chills, body aches. MD complaint: Nausea and vomiting Onset (ago): hour(s) Associated symptoms: other (Worsening erythema surrounding dog bite) Treatments prior to arrival: other (Just started Augmentin) Related Data Home Medications Medication Instructions Recorded Confirmed B-complex with vitamin C 1 tab PO DAILY 01/25/20 12/16/22 cetirizine 10 mg tablet 10 mg PO DAILY 01/25/20 12/16/22 cholecalciferol (vitamin D3) 25 25 mcg PO DAILY 01/25/20 12/16/22 mcg (1,000 unit) capsule multivitamin,[id number] 1 tab PO DAILY 01/25/20 12/16/22 (Complete Multivitamin tablet) pilocarpine HCl 7.5 mg tablet 7.5 mg PO ONCE 03/18/22 12/16/22 Previous Rx's Medication Instructions Recorded fluoxetine 40 mg capsule 40 mg PO DAILY 90 days #90 caps 03/10/22 lamotrigine 200 mg tablet 300 mg (1.5 x 200 mg) PO DAILY 90 03/10/22 days #135 tabs albuterol sulfate 90 mcg/actuation 1 inh inhalation QID 30 days #8.5 10/11/22 aerosol inhaler (Ventolin HFA) grams fluticasone propionate 50 1 spray intranasal BID 30 days #16 10/11/22 mcg/actuation nasal grams spray,suspension (Flonase Allergy Relief) dicyclomine 20 mg tablet 20 mg PO QID PRN abdominal pain 10/13/22 #20 tabs loperamide 2 mg tablet (Imodium 2 mg PO Q6H PRN loose stool #14 10/13/22 A-D) tabs ondansetron 4 mg disintegrating 4 mg PO Q6-8H PRN nausea and 10/13/22 tablet vomiting #7 tabs fluticasone propionate 115 2 puff inhalation BID 30 days #12 10/15/22 mcg-salmeterol 21 mcg/actuation grams HFA inhaler (Advair HFA) semaglutide 0.25 mg or 0.5 mg (2 0.25 mg (0.368 mL) subcut QWEEK 4 12/08/22 mg/3 mL) subcutaneous pen injector weeks #3 mL (Ozempic) acetaminophen 650 mg 650 mg PO DAILY PRN pain #60 tabs 12/16/22 tablet,extended release (Mapap Arthritis Pain) leg brace (Knee Support Brace) #1 ea 12/16/22 semaglutide 1 mg/dose (2 mg/1.5 1 mg (0.75 mL) subcut QWEEK 4 12/16/22 mL) subcutaneous pen injector weeks #3 mL trazodone 100 mg tablet 100 mg PO BEDTIME #90 tabs 12/16/22 amoxicillin 875 mg-potassium 1 tab PO BID 10 days #20 tabs 01/27/23 clavulanate 125 mg tablet Allergies Allergy/AdvReac Type Severity Reaction Status Date / Time cat dander [cats] Allergy Rash Verified 12/16/22 15:14 kiwi Allergy Anaphylaxis Verified 12/16/22 15:14 Review of Systems Review of Systems: As per HPI. Yes all other systems are reviewed and are negative Constitutional: Constitutional: Reports as per HPI PMFSH Past Medical History Medical History Osteoarthritis of left knee Allergic rhinitis COVID-19 vaccine administered Trigger thumb of left hand Asthma Hypertriglyceridemia FH: ovarian cancer in first degree relative History of asthma Recovering alcoholic Hx of insomnia History of depression History of posttraumatic stress disorder (PTSD) Surgical History History of hand surgery History of blepharoplasty History of biopsy Hx of tubal ligation H/O elbow surgery History of bunionectomy Family History Family History Father Lung cancer Mother Afib Sister Ovarian cancer Other Mental health disorder Substance use disorder Social History Social History Housing: Apartment Are you a primary college and career counselor to a significant other at home: No Do you presently have visiting nurse or other home services: No Alcohol intake: former Patient Tobacco Use Status: Former Tobacco user Quit Date: 15 yrs ago Tobacco use type: Cigarette e-Cigarette/Vaping Use: Never Used Second Hand Smoke Exposure: Yes Substance Use Type: Marijuana Advance Directives: No Advance Directives Information Provided: Yes service: No Current occupational status: unemployed Cognitive needs: No Hearing needs: No Vision needs: Yes (glasses) Physical Exam ED Vital Signs: Vital Signs - 24 hr 01/28/23 12:37 Temperature 98.0 F Pulse Rate 75 Respiratory Rate 20 Blood Pressure 134/66 Pulse Oximetry 95 Oxygen Delivery Method Room Air BMI result Body Mass Index 26.3 Vital signs have been reviewed and appear to be correct. Blood pressure normal. Heart rate normal. Respiratory rate normal. Temperature normal. Oxygen saturation normal. Const General: cooperative, healthy appearing and no acute distress Orientation/consciousness: oriented to person, oriented to place, oriented to time and patient oriented x3 Limitations: no limitations HENMT Head: Yes normocephalic and Yes atraumatic Ears: external ears normal General nose exam: Normal external nose present Face and sinus: Yes face symmetric Mouth: oropharynx normal and moist mucous membranes Throat: Yes uvula midline Eyes Pupils: Equal, round and reactive pupils present Neck Neck: Yes normal visual inspection and Yes supple Resp Effort & Inspection: normal respiratory effort and able to speak in complete sentences Auscultation: clear to auscultation bilaterally Cardio Rate: regular rate Rhythm: regular rhythm Heart sounds: S1 normal heart sound present and S2 normal heart sound present GI Palpation (GI): Soft to palpation and nontender Auscultation: normoactive bowel sounds General: Yes no CVA tenderness Back/Spine/Pelvis Back: no CVA tenderness Skin General skin exam: elasticity normal and turgor normal Neuro General: oriented to person, oriented to place, oriented to time, patient oriented x3, moves all extremities, no focal motor deficits and CN's II-XI intact bilaterally Cranial nerves: Yes Equal, round and reactive pupils present Cognition (Neuro): normal cognition Extrem Other: General: Yes full ROM, Yes no pedal edema and Yes no calf tenderness Right upper extremity: Extremity exam: right hand Details: normal capillary refill, neuromotor exam normal, neurosensory exam normal, vascular exam Details: radial pulse present and normal ROM of fingers Psych Mental Status: mental status grossly normal Affect: normal affect Thought process: Normal thought process present Course Course Course Narrative: Rapid medical exam in triage pending full evaluation of patient results and dispo by ER provider Patient was seen yesterday for dog bite, started on antibiotic and had 1 episode of vomiting last night and feels nauseous today Medications Administered Discontinued Medications Generic Name Dose Route Start Last Admin Trade Name Freq PRN Reason Stop Dose Admin Cefazolin Sodium/Dextrose 2 gm in 50 mls @ 100 mls/hr 01/28/23 15:49 01/28/23 16:00 Ancef IV 01/28/23 16:18 100 mls/hr ONCE ONE Administration Medical Decision Making Medical Decision Making [facility] Narrative: Patient is a 63-year-old right-hand dominant female presenting to the emergency department with complaint of nausea and vomiting after starting antibiotics for a dog bite. On exam patient is awake, A+Ox3, VS WNL, afebrile, normal neurological exam without focal deficits, physical exam findings as above. Given reported symptoms and physical exam findings, initial differential includes cellulitis. Do not currently suspect deep space infection of necrotizing fasciitis, do not suspect sepsis. Labs notable for mild leukocytosis with elevated CRP . X-ray notable for no evidence of foreign body. My interpretation is in agreement with the radiologist's interpretation. Ancef 2g IV ordered. Case discussed with javon Almendarez who agrees with admission and will follow. Brooks text to Dr. Michele who accepted admission for cellulitis. Differential Diagnosis Differential Diagnoses: The differential diagnosis associated with the presentation includes As per [facility] Admission/Observation Consideration of admission/observation: Escalation of care including admission/observation considered Consult Healthcare Provider Management of the patient was discussed with: Hospitalist (Dr. Michele) and Marine Gear Keeper (javon Almendarez) Lab Data [facility] Lab Attestation statement: I reviewed the patient's lab results. As per [facility] 01/28/23 15:13 01/28/23 15:13 Labs: Lab Results 01/28/23 Range/Units 15:13 WBC 14.4 H (4.8-10.8) X10*3/uL RBC 4.62 (4.20-5.50) X10*6/uL Hgb 14.1 (12.0-16.0) g/dl Hct 42.3 (37.0-47.0) % MCV 91.6 (80.0-98.0) fL MCH 30.5 (27.0-33.0) pg MCHC 33.3 (31.0-35.0) g/dl RDW 13.6 (11.0-16.0) % Plt Count 369 (160-400) X10*3/uL MPV 8.6 L (9.4-12.3) fL Immature Gran % (Auto) 0.3 (0.0-0.4) % Neut % (Auto) 70.0 (45-73) % Lymph % (Auto) 20.6 (20-40) % [place] % (Auto) 7.2 (2-11) % Eos % (Auto) 1.6 (0-4) % Baso % (Auto) 0.3 (0-2) % Lymph # (Auto) 3.0 (1.2-4.9) X10*3/uL [place] # (Auto) 1.0 (0.1-1.2) X10*3/uL Eos # (Auto) 0.2 (0.0-0.4) X10*3/uL Baso # (Auto) 0.1 (0.0-0.2) X10*3/uL Abs Immat Gran (auto) 0.04 H (0.00-0.03) X10*3/uL Absolute Neuts (auto) 10.1 H (2.0-8.3) x10*3/uL Absolute Nucleated RBC 0.000 (0.0-0.012) X10*3/uL Nucleated RBC % (auto) 0.0 (0.0-0.2) /100WBC Sodium 141 (135-145) mmol/L Potassium 3.7 (3.3-5.1) mmol/L Chloride 101 (96-108) mmol/L Carbon Dioxide 28 (22-29) mmol/L Anion Gap 16 (12-20) BUN 11 (9-16) mg/dL Creatinine 0.83 (0.5-1.4) mg/dL Estim Creat Clear Calc 63.1 Estimated GFR > 60 Random Glucose 85 (60-115) mg/dL Calcium 10.2 D (8.4-10.2) mg/dL C-Reactive Protein 1.27 H (< or = 0.50) mg/dL Independent Interpretation I performed an independent interpretation of an: Plain X-Ray Interpretation: No evidence of foreign body Radiology Impression Discussion of test interpretation with radiology: I have reviewed the radiologist's reading. Radiologist Impression: XR/XR hand wrist RT IMPRESSION: Normal right hand and wrist. External Record Review External record reviewed: Inpatient record, Office record and Outpatient record Prescription Management I considered prescription management with: Antibiotic Discharge Plan Discharge Prescriptions: No Action fluoxetine 40 mg capsule 40 mg PO DAILY 90 Days Qty: 90 2RF lamotrigine 200 mg tablet 300 mg PO DAILY 90 Days Qty: 135 2RF albuterol sulfate [Ventolin HFA] 90 mcg/actuation HFA aerosol inhaler 1 inh inhalation QID 30 Days Qty: 8.5 3RF fluticasone propionate [Flonase Allergy Relief] 50 mcg/actuation spray,suspension 1 spray intranasal BID 30 Days Qty: 16 3RF Rx Instructions: administer into each nostril Advair HFA 115-21 mcg/actuation HFA aerosol inhaler 2 puff inhalation BID 30 Days Qty: 12 4RF Ozempic 0.25 mg or 0.5 mg (2 mg/3 mL) pen injector 0.25 mg subcut QWEEK 28 Days Qty: 3 0RF Hold Instructions: Doctor's Order Rx Instructions: for 4 weeks loperamide [Imodium A-D] 2 mg tablet 2 mg PO Q6H PRN (Reason: loose stool) Qty: 14 0RF dicyclomine 20 mg tablet 20 mg PO QID PRN (Reason: abdominal pain) Qty: 20 0RF ondansetron 4 mg tablet,disintegrating 4 mg PO Q6-8H PRN (Reason: nausea and vomiting) Qty: 7 0RF amoxicillin-pot clavulanate 875-125 mg tablet 1 tab PO BID 10 Days Qty: 20 0RF pilocarpine HCl 7.5 mg tablet 7.5 mg PO ONCE semaglutide 1 mg/dose (2 mg/1.5 mL) pen injector 1 mg subcut QWEEK 28 Days Qty: 3 1RF trazodone 100 mg tablet 100 mg PO BEDTIME Qty: 90 2RF acetaminophen [Mapap Arthritis Pain] 650 mg tablet extended release 650 mg PO DAILY PRN (Reason: pain) Qty: 60 6RF (DME) Knee Support Brace Misc See Rx Instructions .Route Qty: 1 0RF Rx Instructions: Need for left support knee brace cetirizine 10 mg tablet 10 mg PO DAILY cholecalciferol (vitamin D3) 25 mcg (1,000 unit) capsule 25 mcg PO DAILY B-complex with vitamin C Tablet 1 tab PO DAILY Complete Multivitamin Tablet 1 tab PO DAILY
[2023-01-28 15:21] LABS: MANUAL DIFF FLAG NO
[2023-01-28 15:23] LABS: Basophils Absolute Auto 0.1 X10*3/uL (0.0-0.2); Basophils Percent Auto 0.3 % (0-2); Eosinophils Absolute Auto 0.2 X10*3/uL (0.0-0.4); Eosinophils Percent Auto 1.6 % (0-4); Hematocrit 42.3 % (37.0-47.0); Hemoglobin 14.1 g/dl (12.0-16.0); Imm Gran Abs Auto 0.04 X10*3/uL (0.00-0.03); Imm Gran Pct Auto 0.3 % (0.0-0.4); Lymphocytes Percent Auto 20.6 % (20-40); Mean Corpuscular HGB Conc 33.3 g/dl (31.0-35.0); Mean Corpuscular Hemoglobin 30.5 pg (27.0-33.0); Mean Corpuscular Volume 91.6 fL (80.0-98.0); Mean Platelet Volume 8.6 fL (9.4-12.3); Monocytes Percent Auto 7.2 % (2-11); Neutrophils Absolute Auto 10.1 x10*3/uL (2.0-8.3); Platelet Count 369 X10*3/uL (160-400); Red Blood Count 4.62 X10*6/uL (4.20-5.50); Red Cell Distribution Width 13.6 % (11.0-16.0); White Blood Count 14.4 X10*3/uL (4.8-10.8)
[2023-01-28 15:34] LABS: Anion Gap 16 (12-20); Blood Urea Nitrogen 11 mg/dL (9-16); C Reactive Protein 1.27 mg/dL (< or = 0.50); Calcium 10.2 mg/dL (8.4-10.2); Carbon Dioxide 28 mmol/L (22-29); Chloride 101 mmol/L (96-108); Creatinine Clr Calc Pharmacy 63.1; Estimated Glomerular Filt Rate > 60; Glucose Random 85 mg/dL (60-115); Potassium 3.7 mmol/L (3.3-5.1); Sodium 141 mmol/L (135-145)
[2023-01-28] MEDS: ceFAZolin Sodium/Dextrose,Iso 2 GM/50 ML PIGGYBACK IV (16:00)
--- NOTE | 2023-01-28 17:49 | PM.IMHP ---
History of Present Illness Date of Service: 01/28/23 Attending physician on admission: Silvio [facility] Chief Complaint: dog bite 63-year-old female with history of hyperlipidemia, osteoarthritis, asthma, and history of alcohol use disorder presented to the ED earlier today for evaluation of nausea and vomiting that started after taking Augmentin prescribed yesterday for a dog bite to the right hand. Patient reports she was picking up her elderly dog who is up-to-date on all vaccinations, and her hand brushed against a sore resulting in the dog biting her right hand. She states she was able to take the Augmentin around 20:00 last night and ate dinner but then vomited about 3 hours later. She did take the Augmentin earlier today with a banana without any recurrent symptoms immediately following ingestion but did feel nauseous several hours later. She states yesterday the area was not red but now has erythema over the dorsal radial aspect of the right hand on to the radial aspect of the right forearm. There have been no fevers or chills or purulent drainage. No recurrent vomiting. On arrival, vital stable. There is a leukocytosis of 14.4. Renal function electrolyte levels normal. CRP elevated at 1.27. X-ray of the right hand/wrist normal. While in the ED received 2 g IV Ancef. Review of Systems Review of Systems: General: No fevers, malaise, unintentional weight loss HEENT: No blurred vision, diplopia. No sore throat, nasal congestion, rhinorrhea, sinus pain, ear pain Cardiovascular: No chest pain, palpitations, or leg edema Respiratory: No shortness of breath, wheezing, cough GI: +nausea, vomiting. No abdominal pain, diarrhea, constipation, melena, hematochezia : No dysuria, hematuria, increased urinary frequency, decreased urinary output MSK: No myalgia, back pain Neuro: No headaches, weakness, paresthesias Skin: No rashes. +puncture wounds, erythema R hand/wrist PMFSH Medical History (Updated 01/28/23 @ 18:03 by REED Jarrett) Dog bite Osteoarthritis of left knee Allergic rhinitis COVID-19 vaccine administered Trigger thumb of left hand Asthma Hypertriglyceridemia FH: ovarian cancer in first degree relative History of asthma Recovering alcoholic Hx of insomnia History of depression History of posttraumatic stress disorder (PTSD) Family History Father Lung cancer Mother Afib Sister Ovarian cancer Other Mental health disorder Substance use disorder Surgical History History of hand surgery History of blepharoplasty History of biopsy Hx of tubal ligation H/O elbow surgery History of bunionectomy Social History Housing: Apartment Are you a primary laboratory animal caretaker to a significant other at home: No Do you presently have visiting nurse or other home services: No Alcohol intake: never Patient Tobacco Use Status: Former Tobacco user Quit Date: 15 yrs ago Tobacco use type: Cigarette Smoked in Last 30 Days: No e-Cigarette/Vaping Use: Never Used Patient Interested in Nicotine Replacement: No Patient Given Instructions on How to Stop Smoking: No Second Hand Smoke Exposure: No Use of substances other than those prescribed or required for medical reasons: Yes Substance Use Type: Marijuana Advance Directives: No Advance Directives Information Provided: Yes Nutrition Risks: No Nutritional Risk Patient : No service: No Current occupational status: unemployed Cognitive needs: No Hearing needs: No Vision needs: Yes (glasses) Meds Allergies Allergy/AdvReac Type Severity Reaction Status Date / Time cat dander [cats] Allergy Rash Verified 12/16/22 15:14 kiwi Allergy Anaphylaxis Verified 12/16/22 15:14 Home Medications Medication Instructions Recorded Confirmed Last Taken Type B-complex with vitamin C 1 tab PO DAILY 01/25/20 01/28/23 01/28/23 History cetirizine 10 mg tablet 10 mg PO DAILY 01/25/20 01/28/23 01/28/23 History cholecalciferol (vitamin D3) 25 25 mcg PO DAILY 01/25/20 01/28/23 01/28/23 History mcg (1,000 unit) capsule multivitamin,[id number] 1 tab PO DAILY 01/25/20 01/28/23 01/28/23 History (Complete Multivitamin tablet) pilocarpine HCl 7.5 mg tablet 7.5 mg PO DAILY 03/18/22 01/28/23 01/28/23 History acetaminophen 650 mg 650 mg PO DAILY pain 01/28/23 01/28/23 01/28/23 History tablet,extended release (Mapap Arthritis Pain) albuterol sulfate 90 mcg/actuation 1 inh inhalation QID PRN Wheezing 01/28/23 01/28/23 Unknown History aerosol inhaler (Ventolin HFA) fluoxetine 40 mg capsule 40 mg PO BEDTIME 01/28/23 01/28/23 01/27/23 History lamotrigine 200 mg tablet 300 mg PO BEDTIME 01/28/23 01/28/23 01/27/23 History semaglutide 1 mg/dose (2 mg/1.5 1 mg subcut TU 01/28/23 01/28/23 01/21/23 History mL) subcutaneous pen injector Physical Exam Vital Signs and Narrative: Vital Signs: Last Vital Signs Temp 98.0 F 01/28/23 12:37 Pulse 75 01/28/23 12:37 Resp 20 01/28/23 12:37 BP 134/66 01/28/23 12:37 Pulse Ox 95 01/28/23 12:37 O2 Del Method Room Air 01/28/23 12:37 BMI result Body Mass Index 26.3 Constitutional - Awake and Alert, No apparent distress Eyes - PERRLA, EOMI Cardiovascular - S1S2, RRR, No edema Respiratory - Normal lung expansion, Normal respiratory effort, No respiratory distress, CTA bilaterally Extremities - no calf tenderness bilaterally, no swelling Skin - Warm/Dry. Erythema and warmth over the dorsal radial aspect of the right hand extending to the radial aspect of the right forearm with three puncture wounds noted without purulent drainage or fluctuance Neurological - Alert & oriented x3, sensation intact. 5/5 cashier or checker stock clerk strength Psychological - Appropriate affect Results Labs 01/29/23 05:38 01/29/23 05:38 Labs: Laboratory Results - last 24 hr 01/28/23 15:13 MCV 91.6 MCH 30.5 MCHC 33.3 RDW 13.6 Plt Count 369 MPV 8.6 L Immature Gran % (Auto) 0.3 Neut % (Auto) 70.0 Lymph % (Auto) 20.6 [place] % (Auto) 7.2 Eos % (Auto) 1.6 Baso % (Auto) 0.3 Lymph # (Auto) 3.0 [place] # (Auto) 1.0 Eos # (Auto) 0.2 Baso # (Auto) 0.1 Abs Immat Gran (auto) 0.04 H Absolute Neuts (auto) 10.1 H Absolute Nucleated RBC 0.000 Nucleated RBC % (auto) 0.0 Anion Gap 16 Estim Creat Clear Calc 63.1 Estimated GFR > 60 Random Glucose 85 Calcium 10.2 D C-Reactive Protein 1.27 H Imaging Radiologist's Impressions: Impressions Hand/Wrist X-Ray 01/28/23 15:10 IMPRESSION: Normal right hand and wrist. Assessment and Plan (1) Cellulitis: Qualifiers: Laterality: right Site of cellulitis: extremity Site of cellulitis of extremity: upper extremity Qualified Code(s): L03.113 - Cellulitis of right upper limb Status: Acute (2) Dog bite: Qualifiers: Encounter type: subsequent encounter Qualified Code(s): W54.0XXD - Bitten by dog, subsequent encounter Status: Acute Plan 63-year-old female with history of hyperlipidemia, osteoarthritis, asthma, glaucoma, and history of alcohol use disorder to be observed for cellulitis associated with dog bite. # acute cellulitis right upper extremity secondary to dog bite -leukocytosis 14.4, no other sirs criteria -doc was patient's own and is up-to-date on vaccinations -has taken 2 doses of Augmentin with rapid progression of erythema affecting dominant hand/wrist -Nausea/vomiting occurred 3 hours after abx ingestion, likely side affect, not allergy -IV Unasyn and doxycycline (initiated 01/08) -orthopedic consult -XR hand/wrist negative -follow CBC, cultures # moderate persistent asthma -no acute exacerbation -continue maintenance inhalers, albuterol p.r.n. # glaucoma -continue pilocarpine # unspecified mood disorder -continue home meds DVT prophylaxis-Lovenox Full code Time Spent With Patient Time: Total time managing care of this patient today ____ minutes. Quality Stroke Does the patient have a stroke diagnosis?: No VTE Prior VTE?: No VTE Risk Level:: Medical - moderate - high VTE Device Contraindication: Treatment Not Indicated VTE Drug Contraindication: N/A - Med Ordered
--- NOTE | 2023-01-28 17:59 | PHA.MEDREC ---
Pharmacy Consult ? Medication Reconciliation Pharmacy has completed the medication reconciliation. Patient reported medications. Patient due for Ozepmic tonight but reported she will take it tomorrow when she gets home. Ailene Lancaster, KateD
[2023-01-28 18:08] VITALS: BP 171/90; PULSE 77; RESP 18; TEMP 36.7; O2SAT 99
[2023-01-28] MEDS: Ampicillin Sodium/Sulbactam Na 3 GM in 0.9 % Sodium Chloride 100 ML IV (19:42)
[2023-01-28] MEDS: Enoxaparin Sodium 40 MG/0.4 ML SYRINGE SUBCUT (19:43)
[2023-01-28] MEDS: Doxycycline Hyclate 100 MG in 0.9 % Sodium Chloride 250 ML 166.67 MG IV (20:27)
[2023-01-28] MEDS: FLUoxetine HCl 20 MG CAPSULE 40 MG PO (20:52)
[2023-01-28] MEDS: lamoTRIgine 100 MG TABLET 300 MG PO (20:52)
[2023-01-28 22:16] VITALS: BP 144/74; PULSE 66; RESP 18; TEMP 36.3; O2SAT 96
[2023-01-28] MEDS: traZODone HCL 100 MG TABLET PO (22:35)
[2023-01-28] MEDS: Acetaminophen 325 MG TABLET 650 MG PO (22:37)
[2023-01-29] VITALS: BP 134/70; PULSE 74; RESP 20; TEMP 36.5; O2SAT 94
[2023-01-29] MEDS: Ampicillin Sodium/Sulbactam Na 3 GM in 0.9 % Sodium Chloride 100 ML IV ×2 (02:34→09:26)
[2023-01-29 03:19] VITALS: BP 113/63; PULSE 57; RESP 20; TEMP 36.2; O2SAT 94
[2023-01-29 05:50] LABS: MANUAL DIFF FLAG NO
[2023-01-29 06:01] LABS: Basophils Percent Auto 0.5 % (0-2); Eosinophils Absolute Auto 0.4 X10*3/uL (0.0-0.4); Eosinophils Percent Auto 4.3 % (0-4); Hematocrit 37.5 % (37.0-47.0); Hemoglobin 12.4 g/dl (12.0-16.0); Imm Gran Abs Auto 0.03 X10*3/uL (0.00-0.03); Imm Gran Pct Auto 0.3 % (0.0-0.4); Lymphocytes Absolute Auto 3.1 X10*3/uL (1.2-4.9); Lymphocytes Percent Auto 35.3 % (20-40); Mean Corpuscular HGB Conc 33.1 g/dl (31.0-35.0); Mean Corpuscular Hemoglobin 30.2 pg (27.0-33.0); Mean Corpuscular Volume 91.5 fL (80.0-98.0); Mean Platelet Volume 9.1 fL (9.4-12.3); Monocytes Absolute Auto 0.8 X10*3/uL (0.1-1.2); Monocytes Percent Auto 9.5 % (2-11); Neutrophils Absolute Auto 4.4 x10*3/uL (2.0-8.3); Neutrophils Percent Auto 50.1 % (45-73); Platelet Count 327 X10*3/uL (160-400); Red Cell Distribution Width 13.5 % (11.0-16.0); White Blood Count 8.8 X10*3/uL (4.8-10.8)
[2023-01-29 06:13] LABS: Anion Gap 12 (12-20); Blood Urea Nitrogen 11 mg/dL (9-16); Calcium 9.4 mg/dL (8.4-10.2); Carbon Dioxide 25 mmol/L (22-29); Chloride 106 mmol/L (96-108); Creatinine Clr Calc Pharmacy 70.8; Estimated Glomerular Filt Rate > 60; Glucose Random 85 mg/dL (60-115); Potassium 3.7 mmol/L (3.3-5.1); Sodium 139 mmol/L (135-145)
[2023-01-29] MEDS: Doxycycline Hyclate 100 MG in 0.9 % Sodium Chloride 250 ML 166.67 MG IV (07:16)
[2023-01-29 07:25] VITALS: BP 129/78; PULSE 81; RESP 20; TEMP 36; O2SAT 96
--- NOTE | 2023-01-29 07:54 | P.CONOP_ITS ---
History of Present Illness HPI Consult date: 01/29/23 Chief complaint: dog bite, cellulitis Narrative: Ms. Pa is a 63 yo female who presented to the ED for right hand dog bite. She reports the dog bite occurred on Friday. She was seen in the Ed and discharged on oral Augmentin. unfortunately the patient was unable to tolerate this medication and presented back to the ED the following day. She was admitted to the medicine service for IV antibiotics and orthopedic's was consulted for further evaluation and treatment. Review of Systems 2 Review of Systems: Yes all other systems are reviewed and are negative [facility] Past Medical History Medical History (Updated 01/28/23 @ 18:03 by REED Jarrett) Dog bite Osteoarthritis of left knee Allergic rhinitis COVID-19 vaccine administered Trigger thumb of left hand Asthma Hypertriglyceridemia FH: ovarian cancer in first degree relative History of asthma Recovering alcoholic Hx of insomnia History of depression History of posttraumatic stress disorder (PTSD) Family History Family History Father Lung cancer Mother Afib Sister Ovarian cancer Other Mental health disorder Substance use disorder Surgical History Surgical History History of hand surgery History of blepharoplasty History of biopsy Hx of tubal ligation H/O elbow surgery History of bunionectomy Social History Social History Housing: Apartment Are you a primary health care / medical job titles to a significant other at home: No Do you presently have visiting nurse or other home services: No Alcohol intake: never Patient Tobacco Use Status: Former Tobacco user Quit Date: 15 yrs ago Tobacco use type: Cigarette Smoked in Last 30 Days: No e-Cigarette/Vaping Use: Never Used Patient Interested in Nicotine Replacement: No Patient Given Instructions on How to Stop Smoking: No Second Hand Smoke Exposure: No Use of substances other than those prescribed or required for medical reasons: Yes Substance Use Type: Marijuana Advance Directives: No Advance Directives Information Provided: Yes Nutrition Risks: No Nutritional Risk Patient : No service: No Current occupational status: unemployed Cognitive needs: No Hearing needs: No Vision needs: Yes (glasses) Meds Allergies Allergy/AdvReac Type Severity Reaction Status Date / Time cat dander [cats] Allergy Rash Verified 12/16/22 15:14 kiwi Allergy Anaphylaxis Verified 12/16/22 15:14 Active Medications: Current Medications Acetaminophen (Acetaminophen 325 Mg Tablet) 650 mg PO Q6H PRN PRN Reason: Pain, Mild (Pain Scale 1-3) Last Admin: 01/28/23 22:37 Dose: 650 mg Albuterol Sulfate (Albuterol Sulfate 90 Mcg 8 Gm Inhaler) 1 puff INHALE QID PRN PRN Reason: Wheezing Docusate Sodium (Docusate Sodium 100 Mg Capsule) 100 mg PO DAILY PRN PRN Reason: Constipation Enoxaparin Sodium (Enoxaparin Sodium 40 Mg/0.4 Ml Syringe) 40 mg SUBCUT Q24H [facility] Last Admin: 01/28/23 19:43 Dose: 40 mg Fluoxetine HCl (Fluoxetine Hcl 20 Mg Capsule) 40 mg PO BEDTIME [facility] Last Admin: 01/28/23 20:52 Dose: 40 mg Fluticasone Propionate (Fluticasone Propionate Nasal 16 Gm Donnelly) 1 spray NOSTRIL-B BID [facility] Last Admin: 01/28/23 22:39 Dose: Not Given Fluticasone/Vilanterol (Fluticasone/Vilanterol 100/25 Blst.W.Dev) 1 puff INHALE RDAILY [facility] Doxycycline Hyclate 100 mg/ (Sodium Chloride) 250 mls @ 166.67 mls/hr IV Q12H [facility] Last Admin: 01/29/23 07:16 Dose: 166.67 mls/hr Ampicillin Sodium/Sulbactam (Sodium 3 gm/ Sodium Chloride) 100 mls @ 200 mls/hr IV Q6H [facility] Last Infusion: 01/29/23 07:53 Dose: Infused Lamotrigine (Lamotrigine 100 Mg Tablet) 300 mg PO BEDTIME [facility] Last Admin: 01/28/23 20:52 Dose: 300 mg Loratadine (Loratadine 10 Mg Tablet) 10 mg PO DAILY [facility] Multivitamins/Vitamin C (Multivitamin Tablet) 1 tab PO DAILY [facility] Ondansetron HCl (Ondansetron Hcl 4 Mg/2 Ml Vial) 4 mg IVPUSH Q8H PRN PRN Reason: Nausea and Vomiting Sodium Chloride (0.9 % Sodium Chloride Flush 3 Ml Syringe) 3 ml IVFLUSH QSHIFT [facility] Last Admin: 01/29/23 00:00 Dose: 3 ml Trazodone HCl (Trazodone Hcl 100 Mg Tablet) 100 mg PO BEDTIME [facility] Last Admin: 01/28/23 22:35 Dose: 100 mg Vitamin D (Cholecalciferol (Vitamin D3) 25 Mcg Tablet) 25 mcg PO DAILY [facility] Home Medications Medication Instructions Recorded Confirmed Last Taken Type B-complex with vitamin C 1 tab PO DAILY 01/25/20 01/28/23 01/28/23 History cetirizine 10 mg tablet 10 mg PO DAILY 01/25/20 01/28/23 01/28/23 History cholecalciferol (vitamin D3) 25 25 mcg PO DAILY 01/25/20 01/28/23 01/28/23 History mcg (1,000 unit) capsule multivitamin,[id number] 1 tab PO DAILY 01/25/20 01/28/23 01/28/23 History (Complete Multivitamin tablet) pilocarpine HCl 7.5 mg tablet 7.5 mg PO DAILY 03/18/22 01/28/23 01/28/23 History acetaminophen 650 mg 650 mg PO DAILY pain 01/28/23 01/28/23 01/28/23 History tablet,extended release (Mapap Arthritis Pain) albuterol sulfate 90 mcg/actuation 1 inh inhalation QID PRN Wheezing 01/28/23 01/28/23 Unknown History aerosol inhaler (Ventolin HFA) fluoxetine 40 mg capsule 40 mg PO BEDTIME 01/28/23 01/28/23 01/27/23 History lamotrigine 200 mg tablet 300 mg PO BEDTIME 01/28/23 01/28/23 01/27/23 History semaglutide 1 mg/dose (2 mg/1.5 1 mg subcut TU 01/28/23 01/28/23 01/21/23 History mL) subcutaneous pen injector Physical Exam 2 Vital Signs: Vital Signs: Last Vital Signs Temp 96.8 F 01/29/23 07:25 Pulse 81 01/29/23 07:25 Resp 20 01/29/23 07:25 BP 129/78 01/29/23 07:25 Pulse Ox 96 01/29/23 07:25 O2 Del Method Room Air 01/29/23 07:25 BMI result Body Mass Index 26.3 Const: General: cooperative, healthy appearing and no acute distress Resp: Effort & Inspection: normal respiratory effort and able to speak in complete sentences Cardio: Rate: regular rate Peripheral pulses: Peripheral pulses 2+ throughout GI: Palpation (GI): Soft to palpation Skin: Lesions: no lesions Rashes: no rashes Extrem: Other: Right hand two puncture wounds on the dorsal aspect of at the base of the thumb as well as one puncture wound on the volar aspect of the thenar eminence. Surrounding erythema previously outlined subjective improvement by patient report. Able to move all digits. No area of abscess. NVI. Results Labs 01/29/23 05:38 01/29/23 05:38 Labs: Abnormal lab results 01/28/23 01/29/23 Range/Units 15:13 05:38 WBC 14.4 H (4.8-10.8) X10*3/uL RBC 4.10 L (4.20-5.50) X10*6/uL MPV 8.6 L 9.1 L (9.4-12.3) fL Eos % (Auto) 4.3 H (0-4) % Abs Immat Gran (auto) 0.04 H (0.00-0.03) X10*3/uL Absolute Neuts (auto) 10.1 H (2.0-8.3) x10*3/uL C-Reactive Protein 1.27 H (< or = 0.50) mg/dL H & H 01/28/23 01/29/23 Range/Units 15:13 05:38 Hgb 14.1 12.4 (12.0-16.0) g/dl Hct 42.3 37.5 (37.0-47.0) % All other labs normal. Assessment and Plan (1) Dog bite: Qualifiers: Encounter type: subsequent encounter Qualified Code(s): W54.0XXD - Bitten by dog, subsequent encounter Status: Acute continue iv abx pain management as appropriate Encourage ROM No additional orthopedic intervention needed at this time Improving cellulitis (2) Cellulitis: Qualifiers: Laterality: right Site of cellulitis: extremity Site of cellulitis of extremity: upper extremity Qualified Code(s): L03.113 - Cellulitis of right upper limb Status: Acute Time Spent With Patient Time: Total time managing care of this patient today ____ minutes. Procedures Date of Service Date of Service: 01/29/23
--- NOTE | 2023-01-29 08:52 | MHC.CM.PN ---
CM met with Patient at bedside and addressed BURR with her, providing Patient with the original and placing a copy on the chart. Patient lives alone in a 3 family house on the third floor and she required no services nor DME PORTAL ARCHITECT. Home/self care is the goal and CM has initiated and will follow for dc planning. PCP/PA is Josemanuel Stroud.
[2023-01-29] MEDS: Cholecalciferol (Vitamin D3) 25 MCG TABLET PO (09:25)
[2023-01-29] MEDS: Multivitamin TABLET 1 TAB PO (09:25)
[2023-01-29] MEDS: Loratadine 10 MG TABLET PO (09:25)
[2023-01-29] MEDS: 0.9 % Sodium Chloride Flush 3 ML SYRINGE IVFLUSH ×2 (09:26)
--- NOTE | 2023-01-29 09:52 | P.DS_ITS ---
DS: Providers Provider Date of Service: 01/29/23 Date of admission: 01/28/23 17:45 Primary care physician: Josemanuel Stroud PA-C Consults: 01/28/23 17:45 Consult to Orthopedics Routine Consulting Provider: [facility] Surgeons Reason for consultation: dog bite, r hand cellulitis DS: Diagnosis Discharge Diagnosis (1) Cellulitis: Status: Acute (2) Dog bite: Status: Acute DS: Summary Hospital Course Hospital Course: Chief Complaint: dog bite 63-year-old female with history of hyperlipidemia, osteoarthritis, asthma, and history of alcohol use disorder presented to the ED earlier today for evaluation of nausea and vomiting that started after taking Augmentin prescribed yesterday for a dog bite to the right hand. Patient reports she was picking up her elderly dog who is up-to-date on all vaccinations, and her hand brushed against a sore resulting in the dog biting her right hand. She states she was able to take the Augmentin around 20:00 last night and ate dinner but then vomited about 3 hours later. She did take the Augmentin earlier today with a banana without any recurrent symptoms immediately following ingestion but did feel nauseous several hours later. She states yesterday the area was not red but now has erythema over the dorsal radial aspect of the right hand on to the radial aspect of the right forearm. There have been no fevers or chills or purulent drainage. No recurrent vomiting. On arrival, vital stable. There is a leukocytosis of 14.4. Renal function electrolyte levels normal. CRP elevated at 1.27. X-ray of the right hand/wrist normal. While in the ED received 2 g IV Ancef. Hospital course: The patient was admitted overnight and administered IV Unasyn, which led to significant improvement. It's worth mentioning that she did not experience any allergic reaction to Augmentin. An orthopedic evaluation determined that no intervention was required. Due to the significant improvement observed, the decision was made to discharge her to continue her course of Augmentin and Doxycycline. She was advised to engage in passive range of motion exercises for her hand. Time Spent with Patient Time attestation: Total time managing care of this patient today ____ minutes. Discharge coordination time: Greater than 30 minutes Quality: Safe Use of Opioids Does Pt have an Active Cancer Diagnosis on the Problem List?: No Quality: Stroke Does the patient have a stroke diagnosis?: No Physical Exam Vital Signs: Vital Signs: Last Vital Signs Temp 96.8 F 01/29/23 07:25 Pulse 81 01/29/23 07:25 Resp 20 01/29/23 07:25 BP 129/78 01/29/23 07:25 Pulse Ox 96 01/29/23 07:25 O2 Del Method Room Air 01/29/23 07:25 BMI result Body Mass Index 26.3 DS: Data Data Completed and Pending Labs on day of discharge: Laboratory Results - last 24 hr 01/28/23 01/29/23 15:13 05:38 WBC 14.4 H 8.8 RBC 4.62 4.10 L Hgb 14.1 12.4 Hct 42.3 37.5 MCV 91.6 91.5 MCH 30.5 30.2 MCHC 33.3 33.1 RDW 13.6 13.5 Plt Count 369 327 MPV 8.6 L 9.1 L Immature Gran % (Auto) 0.3 0.3 Neut % (Auto) 70.0 50.1 Lymph % (Auto) 20.6 35.3 [place] % (Auto) 7.2 9.5 Eos % (Auto) 1.6 4.3 H Baso % (Auto) 0.3 0.5 Lymph # (Auto) 3.0 3.1 [place] # (Auto) 1.0 0.8 Eos # (Auto) 0.2 0.4 Baso # (Auto) 0.1 0.0 Abs Immat Gran (auto) 0.04 H 0.03 Absolute Neuts (auto) 10.1 H 4.4 Absolute Nucleated RBC 0.000 0.000 Nucleated RBC % (auto) 0.0 0.0 Sodium 141 139 Potassium 3.7 3.7 Chloride 101 106 Carbon Dioxide 28 25 Anion Gap 16 12 BUN 11 11 Creatinine 0.83 0.74 Estim Creat Clear Calc 63.1 70.8 Estimated GFR > 60 > 60 Random Glucose 85 85 Calcium 10.2 D 9.4 D C-Reactive Protein 1.27 H Discharge Plan Discharge Anticipated Discharge Date/Time: 01/29/23 09:48 Patient Disposition: Home, Self-Care Discharge Diagnosis: Dog bite cellulitis Referrals: Josemanuel Stroud PA-C [Primary Care Provider] - 1 Week Discharge Medications: New doxycycline hyclate 100 mg tablet 100 mg PO BID 7 Days Qty: 14 0RF Continued fluticasone propionate [Flonase Allergy Relief] 50 mcg/actuation spray,suspension 1 spray intranasal BID 30 Days Qty: 16 3RF Rx Instructions: administer into each nostril Advair HFA 115-21 mcg/actuation HFA aerosol inhaler 2 puff inhalation BID 30 Days Qty: 12 4RF amoxicillin-pot clavulanate 875-125 mg tablet 1 tab PO BID 10 Days Qty: 20 0RF fluoxetine 40 mg capsule 40 mg PO BEDTIME lamotrigine 200 mg tablet 300 mg PO BEDTIME acetaminophen [Mapap Arthritis Pain] 650 mg tablet extended release 650 mg PO DAILY albuterol sulfate [Ventolin HFA] 90 mcg/actuation HFA aerosol inhaler 1 inh inhalation QID PRN (Reason: Wheezing) semaglutide 1 mg/dose (2 mg/1.5 mL) pen injector 1 mg subcut TU pilocarpine HCl 7.5 mg tablet 7.5 mg PO DAILY trazodone 100 mg tablet 100 mg PO BEDTIME Qty: 90 2RF (DME) Knee Support Brace Misc See Rx Instructions .Route Qty: 1 0RF Rx Instructions: Need for left support knee brace cetirizine 10 mg tablet 10 mg PO DAILY cholecalciferol (vitamin D3) 25 mcg (1,000 unit) capsule 25 mcg PO DAILY B-complex with vitamin C Tablet 1 tab PO DAILY Complete Multivitamin Tablet 1 tab PO DAILY Discharge Orders: Discharge Order (Routine); Ordered 01/29/23 Ordered By: Silvio Lee Diet: Advance to usual diet Activity on Discharge: As tolerated Stand Alone Forms: Patient Portal Discharge page Care Plan Goals: recovery from dog bite infection Health Concerns: dog bite cellulitis Plan of Treatment: finish taking Augmentin (may take it with food to avoid nausea/vomitting) Take Doxycyline as recommended and follow up with your Doctor in a week return to emergency promptly if you notice worsening of the swelling. Follow up with your doctor in a week, call for appointment Assessment: as above
--- NOTE | 2023-01-29 10:08 | MHC.CM.PN ---
Patient has been medically cleared for dc to home today, self care.
== END 2023-01-29 14:19 | disposition home or self-care (01) ==
LOC: HO.ED 16:57 → HO.EDOVER 17:53 → HO.IMC 21:11
PROVIDERS: Registered Nurse Emergency; Admitting Provider Physician Assistant; Emergency Provider Emergency Medicine; PCP Physician Assistant; Visit Provider Internal Medicine
DX: L03.113 Cellulitis of right upper limb (principal); S61.451A Open bite of right hand, initial encounter; W54.0XXD Bitten by dog, subsequent encounter; Y93.9 Activity, unspecified; Y92.9 Unspecified place or not applicable; Y99.9 Unspecified external cause status; R11.2 Nausea with vomiting, unspecified; J45.40 Moderate persistent asthma, uncomplicated
CPT/HCPCS: 36415; 73110; 73130; 80048; 85025; 86140; 96365; 96366; 96367; 96372; 99222; 99285; J0295; J0690; J1650

== ENCOUNTER → 2023-01-28 17:45 | Outpatient (BNV) | payer OTHER, SELFPAY | PROVIDERS: Admitting Provider Physician Assistant; Emergency Provider Emergency Medicine; PCP Physician Assistant; Visit Provider Physician Assistant | DX: L03.113 Cellulitis of right upper limb (principal); W54.0XXD Bitten by dog, subsequent encounter | CPT/HCPCS: 99221 ==

== ENCOUNTER → 2023-01-28 17:45 | Outpatient (BNV) | payer OTHER, SELFPAY | PROVIDERS: Admitting Provider Physician Assistant; Emergency Provider Emergency Medicine; PCP Physician Assistant; Visit Provider Physician Assistant | DX: L03.113 Cellulitis of right upper limb (principal); W54.0XXD Bitten by dog, subsequent encounter | CPT/HCPCS: 99223; 99239 ==

== ENCOUNTER 2023-01-29 17:07 | Emergency (ER) | payer OTHER, SELFPAY ==
[2023-01-29 17:57] VITALS: BP 148/78; PULSE 79; RESP 17; TEMP 36.3; O2SAT 94; BMI 27.2
--- NOTE | 2023-01-29 18:02 | ED_ITS ---
HPI - General Adult General Chief complaint: Extremity Injury, Upper Stated complaint: admitted t-1, infection came back/ spreading History of Present Illness HPI narrative: Left the ED without completeion of treatment by ED provider. Related Data Home Medications Medication Instructions Recorded Confirmed B-complex with vitamin C 1 tab PO DAILY 01/25/20 01/30/23 cetirizine 10 mg tablet 10 mg PO DAILY 01/25/20 01/30/23 cholecalciferol (vitamin D3) 25 25 mcg PO DAILY 01/25/20 01/30/23 mcg (1,000 unit) capsule multivitamin,[id number] 1 tab PO DAILY 01/25/20 01/30/23 (Complete Multivitamin tablet) pilocarpine HCl 7.5 mg tablet 7.5 mg PO DAILY 03/18/22 01/30/23 acetaminophen 650 mg 650 mg PO DAILY pain 01/28/23 01/30/23 tablet,extended release (Mapap Arthritis Pain) albuterol sulfate 90 mcg/actuation 1 inh inhalation QID PRN Wheezing 01/28/23 01/30/23 aerosol inhaler (Ventolin HFA) fluoxetine 40 mg capsule 40 mg PO BEDTIME 01/28/23 01/30/23 lamotrigine 200 mg tablet 300 mg PO BEDTIME 01/28/23 01/30/23 semaglutide 1 mg/dose (2 mg/1.5 1 mg subcut TU 01/28/23 01/30/23 mL) subcutaneous pen injector Previous Rx's Medication Instructions Recorded fluticasone propionate 50 1 spray intranasal BID 30 days #16 10/11/22 mcg/actuation nasal grams spray,suspension (Flonase Allergy Relief) fluticasone propionate 115 2 puff inhalation BID 30 days #12 10/15/22 mcg-salmeterol 21 mcg/actuation grams HFA inhaler (Advair HFA) leg brace (Knee Support Brace) #1 ea 12/16/22 trazodone 100 mg tablet 100 mg PO BEDTIME #90 tabs 12/16/22 amoxicillin 875 mg-potassium 1 tab PO BID 10 days #20 tabs 01/27/23 clavulanate 125 mg tablet doxycycline hyclate 100 mg tablet 100 mg PO BID 7 days #14 tabs 01/29/23 Allergies Allergy/AdvReac Type Severity Reaction Status Date / Time cat dander [cats] Allergy Rash Verified 01/30/23 15:36 kiwi Allergy Anaphylaxis Verified 01/30/23 15:36 [facility] Past Medical History Medical History (Updated 02/01/23 @ 19:41 by REED Vogel) Dog bite Osteoarthritis of left knee Allergic rhinitis COVID-19 vaccine administered Trigger thumb of left hand Asthma Hypertriglyceridemia FH: ovarian cancer in first degree relative History of asthma Recovering alcoholic Hx of insomnia History of depression History of posttraumatic stress disorder (PTSD) Surgical History History of hand surgery History of blepharoplasty History of biopsy Hx of tubal ligation H/O elbow surgery History of bunionectomy Family History Family History Father Lung cancer Mother Afib Sister Ovarian cancer Other Mental health disorder Substance use disorder Social History Social History Housing: Apartment Are you a primary health care technician to a significant other at home: No Do you presently have visiting nurse or other home services: No Alcohol intake: never Patient Tobacco Use Status: Former Tobacco user Quit Date: 15 yrs ago Tobacco use type: Cigarette e-Cigarette/Vaping Use: Never Used Second Hand Smoke Exposure: No Substance Use Type: Marijuana service: No Current occupational status: unemployed Cognitive needs: No Hearing needs: No Vision needs: Yes (glasses) Physical Exam ED Vital Signs: BMI result Body Mass Index 27.2 Course Course Course Narrative: RME: 63 yold female dischaged from hospitalists today for dog bite cellulitis that has worsened and passed beyond the red light since discharged this morning. repeat labs ordered Discharge Plan Discharge Clinical Impression: Acute cellulitis Patient Disposition: Left W/O Completing Treatment Prescriptions: No Action fluticasone propionate [Flonase Allergy Relief] 50 mcg/actuation spray,suspension 1 spray intranasal BID 30 Days Qty: 16 3RF Rx Instructions: administer into each nostril Advair HFA 115-21 mcg/actuation HFA aerosol inhaler 2 puff inhalation BID 30 Days Qty: 12 4RF amoxicillin-pot clavulanate 875-125 mg tablet 1 tab PO BID 10 Days Qty: 20 0RF fluoxetine 40 mg capsule 40 mg PO BEDTIME lamotrigine 200 mg tablet 300 mg PO BEDTIME acetaminophen [Mapap Arthritis Pain] 650 mg tablet extended release 650 mg PO DAILY albuterol sulfate [Ventolin HFA] 90 mcg/actuation HFA aerosol inhaler 1 inh inhalation QID PRN (Reason: Wheezing) semaglutide 1 mg/dose (2 mg/1.5 mL) pen injector 1 mg subcut TU doxycycline hyclate 100 mg tablet 100 mg PO BID 7 Days Qty: 14 0RF pilocarpine HCl 7.5 mg tablet 7.5 mg PO DAILY trazodone 100 mg tablet 100 mg PO BEDTIME Qty: 90 2RF (DME) Knee Support Brace Misc See Rx Instructions .Route Qty: 1 0RF Rx Instructions: Need for left support knee brace cetirizine 10 mg tablet 10 mg PO DAILY cholecalciferol (vitamin D3) 25 mcg (1,000 unit) capsule 25 mcg PO DAILY B-complex with vitamin C Tablet 1 tab PO DAILY Complete Multivitamin Tablet 1 tab PO DAILY Discharge Date/Time: 01/29/23 21:35
[2023-01-29 20:04] VITALS: BP 169/75; PULSE 73; RESP 18; O2SAT 98
== END 2023-01-29 21:35 | disposition left against medical advice (07) ==
PROVIDERS: Emergency Provider Emergency Medicine; PCP Physician Assistant
DX: L03.113 Cellulitis of right upper limb (principal)
CPT/HCPCS: 99281

== ENCOUNTER 2023-01-30 15:16 | Outpatient (AMB) | payer OTHER, SELFPAY ==
--- NOTE | 2023-01-30 15:19 | MHC.PC.OV ---
Vital Signs 01/30/23 15:20 Height 5 ft 2 in Weight 146 lb BMI 26.7 BP 126/68 Blood Pressure Location Lt brachial Position Sitting Pulse 66 Pulse Source Pulse Oximeter Pulse Oximetry (%) 97 Oxygen Delivery Method Room Air Intake Visit Reasons: [facility] 01/28 Dog bite reaction Intake Note: Patient is here to follow-up after a visit the emergency department at [facility] on 01/28/23. Insulation Sprayer Required: No Electrician Helper Powerhouse: Not Required per policy Accompanied by: Self / Same As Patient Allergies cat dander [cats] Allergy (Verified 01/30/23 15:36) Rash kiwi Allergy (Verified 01/30/23 15:36) Anaphylaxis Medication List - Last Reconciled 01/30/23 by Josemanuel Stroud PA-C acetaminophen ER (Mapap Arthritis Pain) 650 mg PO DAILY albuterol sulfate 90 mcg/actuation (Ventolin HFA) 1 inh inhalation QID PRN amoxicillin-pot clavulanate 875-125 mg 1 tab PO BID 10 days B-complex with vitamin C 1 tab PO DAILY cetirizine 10 mg PO DAILY cholecalciferol (vitamin D3) 25 mcg PO DAILY doxycycline hyclate 100 mg PO BID 7 days fluoxetine 40 mg PO BEDTIME fluticasone propion-salmeterol 115-21 mcg/actuation (Advair HFA) 2 puffs inhalation BID 30 days fluticasone propionate 50 mcg/actuation (Flonase Allergy Relief) 1 spray intranasal BID 30 days lamotrigine 300 mg PO BEDTIME leg brace (Knee Support Brace) Need for left support knee brace multivitamin,[id number] (Complete Multivitamin tablet) 1 tab PO DAILY pilocarpine HCl 7.5 mg PO DAILY semaglutide 1 mg subcut TU trazodone 100 mg PO BEDTIME Tobacco use date assessed: 01/30/23 Dental Screening Dental Screen Date: 01/30/23 Did you have a dental visit in the last 12 months?: Yes Did you have a dental problem in the last 6 months where you did not have access to dental care?: No Was dental information given to patient?: Patient has dentist HPI [facility] 01/28 Dog bite reaction HPI Details Patient is a 63-year-old female here today for hospital discharge follow-up. Patient has a past medical history significant for hyperlipidemia, osteoarthritis, asthma, major depressive disorder. She unfortunate bitten by a dog on her right hand. She was given Augmentin though was not able to tolerate due to vomiting. She was admitted for day in the hospital was given IV antibiotics with significant improvement. Orthopedics evaluated and did not think there was any surgical intervention needed as patient had full range of motion.] She was then discharged on Augmentin and doxycycline. She reports her swelling and redness has decreased. She is somewhat concerned about the purulent discharge. As compared to photos taken in the ER swelling and redness seem to have improved. [facility] Medical History (Updated 02/02/23 @ 00:01 by Xin Johnson) Dog bite Osteoarthritis of left knee Allergic rhinitis COVID-19 vaccine administered Trigger thumb of left hand Asthma Hypertriglyceridemia FH: ovarian cancer in first degree relative History of asthma Recovering alcoholic Hx of insomnia History of depression History of posttraumatic stress disorder (PTSD) Surgical History History of hand surgery History of blepharoplasty History of biopsy Hx of tubal ligation H/O elbow surgery History of bunionectomy Family History Father Lung cancer Mother Afib Sister Ovarian cancer Other Mental health disorder Substance use disorder Social History Housing: Apartment Are you a primary restorative care technician to a significant other at home: No Do you presently have visiting nurse or other home services: No Alcohol intake: never Patient Tobacco Use Status: Former Tobacco user Quit Date: 15 yrs ago Tobacco use type: Cigarette e-Cigarette/Vaping Use: Never Used Second Hand Smoke Exposure: No Substance Use Type: Marijuana service: No Current occupational status: unemployed Cognitive needs: No Hearing needs: No Vision needs: Yes (glasses) Female Reproductive History Menstrual Age of Menarche: 14 Questionnaire Thrive Questionnaire Date Thrive assessed: 01/29/23 JETHRO-7 AMB Questionnaire JETHRO-7 Date JETHRO - 7 assessed: 09/17/22 Source: Developed by Drs. Sarwat Ledezma, Shannon Rock, Win Peralta and colleagues, with an educational heather from [employer]. Review of Systems Const Denies headache(s) Eyes Denies loss of vision ENT Denies vertigo, Denies dizziness, Denies headache(s) and Denies sore throat Card Denies chest pain, Denies leg edema and Denies lightheadedness Resp Denies cough, Denies hemoptysis and Denies wheezing GI Denies abdominal pain, Denies melena, Denies constipation, Denies diarrhea and Denies vomiting Denies urinary frequency, Denies dysuria and Denies urinary urgency Musc Denies arthralgias, Denies joint swelling, Denies numbness and Denies tingling Neuro Denies Abnormal speech present, Denies behavioral changes, Denies vertigo, Denies dizziness, Denies headache(s), Denies loss of vision, Denies memory loss, Denies numbness and Denies tingling Psych Denies anxiety, Denies behavioral changes, Denies depression, Denies memory loss and Denies panic attacks Daniel/Lymph Denies easy bleeding and Denies easy bruising Aller/Immun Denies wheezing Physical exam (Primary Care) Vital Signs: Last Vital Signs Pulse 66 01/30/23 15:20 BP 126/68 01/30/23 15:20 Pulse Ox 97 01/30/23 15:20 Oxygen Delivery Method Room Air 01/30/23 15:20 BMI result Body Mass Index 26.7 Tobacco/Smoking Status: Tobacco use Status Tobacco use date assessed 01/30/23 01/30/23 15:25 Patient Tobacco Use Status Former Tobacco user 01/30/23 15:25 Tobacco use type Cigarette 01/30/23 15:25 e-Cigarette/Vaping Use Never Used 01/30/23 15:25 Thrive Assessment: Date of Thrive Assessment Date Thrive assessed 01/29/23 01/30/23 15:25 Const General: healthy appearing, no acute distress, alert and awake Nutritional Appearance: well nourished Orientation/consciousness: oriented to person, oriented to place and oriented to time HENMT Ears: TM's normal bilaterally General nose exam: Normal nasal mucous membranes and turbinates present Eyes Conjunctivae: conjunctivae normal Sclerae: sclerae normal Pupils: Equal, round and reactive pupils present Neck Neck: Yes no lymphadenopathy and Yes no JVD Thyroid: Thyroid normal Carotids: no bruits Resp Effort & Inspection: normal respiratory effort and not tachypneic Auscultation: no crackles, no rales, no rhonchi and no wheezes Cardio Rate: regular rate Rhythm: regular rhythm Heart sounds: no murmurs and normal S1 and S2 GI Palpation (GI): Soft to palpation, nontender, no hepatomegaly and no splenomegaly Auscultation: normal bowel sounds Skin General skin exam: no rashes or lesions noted and dry skin Neuro General: oriented to person, oriented to place and oriented to time Cranial nerves: Yes Equal, round and reactive pupils present Speech: No Abnormal speech present Gait exam (Neuro): Normal gait present Motor exam (neuro): no tremor noted Extrem Other: Right upper extremity: full ROM Left upper extremity: full ROM Right lower extremity: full ROM; no edema Left lower extremity: full ROM; no edema Psych Mental Status: mental status grossly normal Speech and movement: Normal speech and movement present Affect: normal affect Attitude: cooperative Thought process: Normal thought process present Assessment and Plan Assessment & Plan (1) Cellulitis: Code(s): L03.90 - Cellulitis, unspecified Qualifiers: Laterality: right Site of cellulitis: extremity Site of cellulitis of extremity: upper extremity Qualified Code(s): L03.113 - Cellulitis of right upper limb Plan: As per HPI, patient admitted 1 day for observation of a acute cellulitis of the right hand secondary to dog bite. She is now on dual antibiotic therapy with Augmentin and doxycycline. Clinically doing much better as compared to previous ER taken photos. Advised to return to ER if redness, increased pain, red streaks arising up right upper extremity, fever start to occur. Advised to keep area clean and dry and dressed extremity for the next 5 days. (2) Dog bite: Code(s): W54.0XXA - Bitten by dog, initial encounter Qualifiers: Encounter type: subsequent encounter Qualified Code(s): W54.0XXD - Bitten by dog, subsequent encounter Plan: As per HPI Coding Level of Care Code Est Pt Level 3 (25514) Diagnoses Cellulitis of right upper extremity L03.113 Laterality: right Site of cellulitis: extremity Site of cellulitis of extremity: upper extremity Dog bite, subsequent encounter W54.0XXD Encounter type: subsequent encounter
[2023-01-30 15:20] VITALS: BP 126/68; PULSE 66; O2SAT 97; BMI 26.7
== END 2023-01-30 15:48 | disposition home or self-care (01) ==
PROVIDERS: PCP Physician Assistant; Visit Provider Physician Assistant
DX: L03.113 Cellulitis of right upper limb (principal); W54.0XXD Bitten by dog, subsequent encounter
CPT/HCPCS: 99213

== ENCOUNTER 2023-04-02 12:34 | Outpatient (REF) | payer OTHER, SELFPAY | END 2023-04-02 12:35 | disposition home or self-care (01) | LOC: HO.HMGCX 12:34 | PROVIDERS: PCP Physician Assistant; Visit Provider Physician Assistant | DX: J40 Bronchitis, not specified as acute or chronic (principal) | CPT/HCPCS: 71046 ==

== ENCOUNTER → 2023-04-04 13:45 | Outpatient (BNV) | payer OTHER, SELFPAY | PROVIDERS: PCP Physician Assistant; Visit Provider Radiology Diagnostic Radiology | DX: Z12.31 Encounter for screening mammogram for malignant neoplasm of breast (principal) | CPT/HCPCS: 77063; 77067 ==

== ENCOUNTER 2023-04-04 13:51 | Outpatient (REF) | payer OTHER, SELFPAY ==
--- NOTE | ~2023-04-04 | MM_ITS ---
EXAMINATION: MM SCREENING DIGITAL BREAST TOMOSYNTHESIS, BILATERAL CLINICAL INFORMATION: Screening. Asymptomatic. COMPARISON: Mammography: 03/29/2022, 04/20/2020, 02/26/2020, 11/28/2015. Dating back to 2009. TECHNIQUE: Digital breast tomosynthesis is performed in both the craniocaudal and mediolateral oblique views along with computer-aided detection (CAD). Synthesized 2D images are generated from the tomosynthesis. FINDINGS: There are scattered areas of fibroglandular density (ACR BI-RADS breast composition Category b). There are no suspicious masses, suspicious grouped calcifications, or areas of architectural distortion in either breast. Stable small nodule in the upper outer right breast, middle one third, likely intramammary lymph node. The parenchymal pattern is stable from prior exams. No axillary or skin abnormality. MM/MM tomosynthesis screening BI IMPRESSION: No mammographic evidence of malignancy. Stable benign findings. ASSESSMENT: BI-RADS BI-RADS 2 - Benign Findings RECOMMENDATION: Routine annual mammography screening. 1 year F/U This examination should not preclude the clinical evaluation of a suspicious palpable abnormality. This patient's information was entered into a reminder system with a target due date for their next mammogram.
== END 2023-04-04 13:52 | disposition home or self-care (01) ==
LOC: HO.MAMMO 13:51
PROVIDERS: PCP Physician Assistant; Visit Provider Physician Assistant
DX: Z12.31 Encounter for screening mammogram for malignant neoplasm of breast (principal)
CPT/HCPCS: 77063; 77067

== ENCOUNTER 2023-04-28 16:18 | Outpatient (AMB) | payer OTHER, SELFPAY ==
[2023-04-28 16:21] VITALS: BP 112/70; PULSE 66; TEMP 36.6; O2SAT 96
--- NOTE | 2023-04-28 16:21 | MHC.OFFWIV ---
Intake Vital Signs 04/28/23 16:21 Height 5 ft 2 in BP 112/70 Blood Pressure Location Lt brachial Position Sitting Pulse 66 Pulse Source Pulse Oximeter Temp 97.8 F Temp Source Oral Pulse Oximetry (%) 96 Oxygen Delivery Method Room Air Intake Visit Reasons: EP cough masked in lobby Intake Note: pt is here for c.o cough, patient states she had the flu the week before last week and she still has a lingering cough and chest congestion Patient Tobacco Use Status: Former Tobacco user Quit Date: 15 yrs ago Allergies cat dander [cats] Allergy (Verified 04/28/23 16:22) Rash kiwi Allergy (Verified 04/28/23 16:22) Anaphylaxis Do you need a note to return to daycare/school/sports/work: Yes HPI HPI Comments History of Present Illness Details Patient presents to the walk in today for cough after flu Had flu 2 weeks ago, cough persists coughing up clear-white sputum in small amounts Endorses sleep disturbance from cough, + fatigue denies fevers, shortness of breath, chest pain, palpitations, nausea, vomiting, diarrhea hx asthma, has been using alb MDI as needed, does not need a refill [facility] Medical History (Updated 04/28/23 @ 16:34 by Giselle Lozano, GERARD, HEEL SANDER) Dog bite Osteoarthritis of left knee Allergic rhinitis COVID-19 vaccine administered Trigger thumb of left hand Asthma Hypertriglyceridemia FH: ovarian cancer in first degree relative History of asthma Recovering alcoholic Hx of insomnia History of depression History of posttraumatic stress disorder (PTSD) Surgical History History of hand surgery History of blepharoplasty History of biopsy Hx of tubal ligation H/O elbow surgery History of bunionectomy Family History Father Lung cancer Mother Afib Sister Ovarian cancer Other Mental health disorder Substance use disorder Social History Housing: Apartment Are you a primary home care and home health aides teacher to a significant other at home: No Do you presently have visiting nurse or other home services: No Alcohol intake: never Patient Tobacco Use Status: Former Tobacco user Quit Date: 15 yrs ago Tobacco use type: Cigarette e-Cigarette/Vaping Use: Never Used Second Hand Smoke Exposure: No Substance Use Type: Marijuana service: No Current occupational status: unemployed Cognitive needs: No Hearing needs: No Vision needs: Yes (glasses) Female Reproductive History Menstrual Age of Menarche: 14 Review of Systems Const All systems reviewed & are unremarkable except as noted in HPI and below Physical Exam Vital Signs: Last Vital Signs Temp 97.8 F 04/28/23 16:21 Pulse 66 04/28/23 16:21 BP 112/70 04/28/23 16:21 Pulse Ox 96 04/28/23 16:21 Oxygen Delivery Method Room Air 04/28/23 16:21 General: awake, alert, oriented. Answers questions appropriately. Fully engaged in examination. Skin: warm, dry, intact HEENT: TMs intact bilaterally, without erythema or exudate. Posterior pharynx without erythema or exudate. Sclera without icterus or injection. Cardiac: External chest normal in appearance. Respiratory: + dry cough. LSCTAB. Abdomen: without gross distension. Neurological: Oriented to person, place, time and situation. Thought process intact. Psychiatric: Appropriate mood and affect. Good judgment and insight. Results Reviewed Results Reviewed: CXR independently reviewed: neg for effusion or infiltrate Assessment & Plan Assessment & Plan (1) Cough: Code(s): R05.9 - Cough, unspecified Plan Cough, cxr neg infiltrate Benzonatate 100mg po bid as needed Prednisone 40mg po daily X 5 days Rest, drink plenty of fluids, tylenol or motrin as needed. Follow up with pcp or in clinic for any new or worsening symptoms. Go to ER for shortness of breath, chest pain, palpitations, weakness, dizziness or if using albuterol MDI more than prescribed. Orders: Orders XR chest 2V Today R05.9 - Cough, unspecified Medications: New benzonatate 100 mg PO BID PRN 20 caps 0RF cough prednisone 40 mg (2 x 20 mg) PO DAILY 10 tabs 0RF Coding Level of Care Code Est Pt Level 4 (31825) Diagnoses Cough R05.9
== END 2023-04-28 17:16 | disposition home or self-care (01) ==
PROVIDERS: PCP Physician Assistant; Visit Provider Registered Nurse Emergency
DX: R05.9 Cough, unspecified (principal)
CPT/HCPCS: 99214

== ENCOUNTER 2023-04-28 16:41 | Outpatient (REF) | payer OTHER, SELFPAY ==
--- NOTE | ~2023-04-28 | XR_ITS ---
EXAMINATION: XR CHEST CLINICAL INFORMATION: Cough COMPARISON: 04/02/2023 and selected images from priors TECHNIQUE: 2 views of the chest were obtained. FINDINGS: No focal pneumonia. No effusion or pneumothorax. Mild chronic bronchial wall thickening. Common considerations include asthma, chronic bronchitis or smoking. Stable heart and mediastinum with mild aortic ectasia. No mass or adenopathy. No edema. Normal gas pattern without free air or obstruction. Minor degenerative spine disease. XR/XR chest 2V IMPRESSION: Mild chronic bronchial wall thickening.
== END 2023-04-28 16:42 | disposition home or self-care (01) ==
LOC: HO.HMGCX 16:41
PROVIDERS: PCP Physician Assistant; Visit Provider Registered Nurse Emergency
DX: R05.9 Cough, unspecified (principal)
CPT/HCPCS: 71046

== ENCOUNTER 2023-06-17 14:52 | Outpatient (AMB) | payer OTHER, SELFPAY ==
[2023-06-17 15:11] VITALS: BP 130/80; PULSE 77; O2SAT 96; BMI 26.2
--- NOTE | 2023-06-17 15:11 | A.OFFPC_ITS ---
Vital Signs 06/17/23 15:11 Height 5 ft 2 in Weight 143 lb 6 oz BMI 26.2 BP 130/80 Blood Pressure Location Lt brachial Position Sitting Pulse 77 Pulse Source Pulse Oximeter Pulse Oximetry (%) 96 Oxygen Delivery Method Room Air Intake Visit Reasons: pe Allergies cat dander [cats] Allergy (Verified 06/17/23 15:20) Rash kiwi Allergy (Verified 06/17/23 15:20) Anaphylaxis Medication List - Last Reconciled 06/17/23 by Josemanuel Stroud PA-C acetaminophen ER (Mapap Arthritis Pain) 650 mg PO DAILY albuterol sulfate 90 mcg/actuation (Ventolin HFA) 1 inh inhalation QID PRN B-complex with vitamin C 1 tab PO DAILY benzonatate 100 mg PO BID PRN cetirizine 10 mg PO DAILY cholecalciferol (vitamin D3) 25 mcg PO DAILY fluoxetine 40 mg PO BEDTIME fluticasone propion-salmeterol 115-21 mcg/actuation (Advair HFA) 2 puffs inhalation BID 30 days fluticasone propionate 50 mcg/actuation (Flonase Allergy Relief) 1 spray intranasal BID 30 days lamotrigine 300 mg (1.5 x 200 mg) PO BEDTIME 90 days leg brace (Knee Support Brace) Need for left support knee brace multivitamin,[id number] (Complete Multivitamin tablet) 1 tab PO DAILY pilocarpine HCl 7.5 mg PO DAILY 90 days prednisone 40 mg (2 x 20 mg) PO DAILY semaglutide 1 mg (0.75 mL) subcut TU 4 weeks trazodone 100 mg PO BEDTIME Tobacco use date assessed: 01/30/23 HPI pe HPI Details Patient is a 63-year-old female here today fo an annual physical. Patient has a past medical history significant for asthma, borderline high total cholesterol, generalized anxiety disorder, major depressive disorder. / Borderline high cholesterol: Most recent lipid panel showing improved cholesterol has been working on lifestyle modifications on reducing her eye cholesterol foods. .. Asthma: Has been well controlled as of late, and daily use of Advair has been helpful. She rarely has to use her albuterol inhaler. .. Anxiety /depression: She reports depression and anxiety has been fairly well controlled. She has been working with a mental health therapist. On high dose of SSRI therapy. .. Obesity: Has been started on Ozempic and has been able to lose a significant amount of weight. Now BMI of 26.2 and 143 lb. Her goal weight is to be on 135 lb thus will increase dose of Ozempic. Vaccine:? Up-to-date with tetanus, UTD pneumonia, shingles, UTD with Flu vaccine. She is interested in getting the RSV vaccine .. Mammo ; mammogram March of 2023- normal .. CORONER'S JUROR:? 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 and gets Pap smears Colon cancer screening : Cologaurd NEG- 02/2024?- Repeat 2026 [facility] Medical History Dog bite Osteoarthritis of left knee Allergic rhinitis COVID-19 vaccine administered Trigger thumb of left hand Asthma Hypertriglyceridemia FH: ovarian cancer in first degree relative History of asthma Recovering alcoholic Hx of insomnia History of depression History of posttraumatic stress disorder (PTSD) Surgical History History of hand surgery History of blepharoplasty History of biopsy Hx of tubal ligation H/O elbow surgery History of bunionectomy Family History Father Lung cancer Mother Afib Sister Ovarian cancer Other Mental health disorder Substance use disorder Social History (Updated 06/17/23 @ 15:25 by Josemanuel Stroud PA-C) Housing: Apartment Are you a primary care program director to a significant other at home: No Do you presently have visiting nurse or other home services: No Alcohol intake: never Patient Tobacco Use Status: Former Tobacco user Quit Date: 15 yrs ago Tobacco use type: Cigarette e-Cigarette/Vaping Use: Never Used Second Hand Smoke Exposure: No Substance Use Type: Marijuana service: No Current occupational status: employed 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 Cognitive needs: No Hearing needs: No Vision needs: Yes (glasses) Female Reproductive History Menstrual Age of Menarche: 14 Questionnaire PHQ-9 Over the last 2 weeks, how often have you been bothered by any of the following problems? 1. Little interest or pleasure in doing things: nearly every day 2. Feeling down, depressed, or hopeless: more than half the days 3. Trouble falling or staying asleep, or sleeping too much: not at all 4. Feeling tired or having little energy: several days 5. Poor appetite or overeating: not at all 6. Feeling bad about yourself - or that you are a failure or have let yourself or your family down: several days 7. Trouble concentrating on things, such as reading the newspaper or watching television: nearly every day 8. Moving or speaking so slowly that other people could have noticed. Or the opposite - being so fidgety or restless that you have been moving around a lot more than usual: not at all 9. Thoughts that you would be better off or of hurting yourself in some way: not at all Total score: 10 Depression Screening Interpretation: Positive Depression Screening Follow-up: Existing condition Depression Screening Done: Yes 25484 - PHQ-9 Billing: Yes Source: Developed by Drs. Sarwat Ledezma, Shannon Rock, Win Peralta and colleagues, with an educational heather from [employer]. Thrive Questionnaire Date Thrive assessed: 06/17/23 I am a: Patient What is your living situation today?: I have a steady place to live Within the past 12 months, did the food you bought not last and you didn't have the money to get more?: Never true Within the past 12 months, did you worry whether your food would run out before you got money to buy more?: Never true Do you have trouble paying for medicines?: No Do you have trouble getting transportation to medical appointments?: No Do you have trouble paying your heating and electricity bill?: No Do you have trouble taking care of your child, family member or friend?: No Do you have trouble with day-to-day activities such as bathing, preparing meals, shopping, managing finances, etc.?: No Are you currently unemployed and looking for a job?: No Are you interested in more education?: No Please select the resources that you would like help with: None Currently or been in a relationship where the following occur: no concerns reported THRIVE Score: 0 AUDIT C Alcohol Use Questionnaire (AUDIT-C) 1. How often do you have a drink containing alcohol?: Never 3. How often do you have six or more drinks on one occasion?: Never Total Score: 0 JETHRO-7 AMB Questionnaire JETHRO-7 Date JETHRO - 7 assessed: 06/17/23 Feeling nervous, anxious, or on edge: 1 = Several days Not being able to stop or control worryin = Not at all Worrying too much about different things: 0 = Not at all Trouble relaxin = Nearly every day Being so restless that it is hard to sit still: 0 = Not at all Becoming easily annoyed or irritable: 3 = Nearly every day Feeling afraid as if something awful might happen: 0 = Not at all Total JETHRO-7 score (0-4 normal; 5-9 mild; 10-14 moderate; 15-21 severe): 7 Source: Developed by Drs. Sarwat Ledezma, Shannon Rock, Win Peralta and colleagues, with an educational heather from [employer]. JETHRO-7 Assessment Billing JETHRO-7 Assessment Tool: JETHRO-7 Assessment 01786 ACT Questionnaire In the past 4 weeks, how much of the time did your asthma keep you from getting as much done at work, school or at home?: None of the time During the past 4 weeks, how often have you had shortness of breath?: Not at all During the past 4 weeks, how often did your asthma symptoms wake you up at night or earlier than usual in the morning?: Not at all During the past 4 weeks, how often have you had to use your rescue inhaler or nebulizer medication?: Not at all How would you rate your asthma control during the past 4 weeks?: Completely controlled ACT Interpretation: Negative Score: 25 Review of Systems Const Denies body aches, Denies chills, Denies excessive sweating, Denies fatigue, Denies fever(s) and Denies headache(s) Eyes Denies blurry vision ENT Denies dysphagia, Denies vertigo, Denies dizziness, Denies headache(s), Denies hearing loss and Denies tinnitus Card Denies chest pain, Denies chest pain with activity, Denies syncope, Denies irregular heart rhythm and Denies dyspnea Resp Denies chest congestion, Denies cough, Denies hemoptysis, Denies dyspnea and Denies wheezing GI Denies abdominal pain, Denies melena, Denies hematochezia, Denies coffee ground emesis, Denies dysphagia, Denies diarrhea, Denies nausea and Denies vomiting Denies urinary frequency, Denies dysuria, Denies urinary hesitancy and Denies urinary urgency Musc Denies arthralgias, Denies limited range of motion, Denies muscle cramps and Denies muscle weakness Skin/Breast Denies rash and Denies skin ulcer Neuro Denies Abnormal speech present, Denies confusion, Denies vertigo, Denies dizziness, Denies syncope, Denies headache(s), Denies memory loss and Denies seizure-like activity Psych Denies anxiety, Denies confusion, Denies depression, Denies memory loss, Denies panic attacks and Denies paranoia Endo Denies excessive sweating, Denies fatigue, Denies flushing, Denies polydipsia and Denies polyuria Aller/Immun Denies wheezing Physical exam (Primary Care) Vital Signs: Last Vital Signs Pulse 77 06/17/23 15:11 BP 130/80 06/17/23 15:11 Pulse Ox 96 06/17/23 15:11 Oxygen Delivery Method Room Air 06/17/23 15:11 BMI result Body Mass Index 26.2 Tobacco/Smoking Status: Tobacco use Status Tobacco use date assessed 01/30/23 06/17/23 15:18 Patient Tobacco Use Status Former Tobacco user 06/17/23 15:18 Tobacco use type Cigarette 06/17/23 15:18 e-Cigarette/Vaping Use Never Used 06/17/23 15:18 PHQ-9: PHQ-9 Score PHQ-9: Total score 10 06/17/23 15:18 Depression Screening Interpretation: Positive Depression Screening Follow-up: Existing condition Thrive Assessment: Date of Thrive Assessment Date Thrive assessed 06/17/23 06/17/23 15:18 Currently or been in a relationship where the following occur: no concerns reported Const General: cooperative, comfortable, no acute distress, alert and awake; No confusion Orientation/consciousness: oriented to person, oriented to place, patient oriented x3 and No confusion HENMT Head: Yes normocephalic Ears: external ears normal and TM's normal bilaterally Face and sinus: No sinus tenderness Mouth: Normal oral and palatal mucosa present and tongue normal Teeth and gingiva: dentition normal and gingiva normal Throat: Yes posterior oropharynx normal, Yes tonsils normal and Yes uvula midline Eyes Conjunctivae: conjunctivae normal Sclerae: sclerae normal Pupils: Equal, round and reactive pupils present EOM: EOMs intact bilaterally Direct Ophthalmoscopy: No no photophobia Neck Neck: Yes no lymphadenopathy, No tender and Yes no JVD Thyroid: Thyroid normal Carotids: no bruits Chest Chest palpation & inspection: no tenderness Resp Effort & Inspection: normal respiratory effort, no audible wheezes, not labored and no stridor Auscultation: no crackles, no rales, no rhonchi and no wheezes Cardio Jugular venous distension: no JVD Rate: regular rate, not bradycardic and not tachycardic Rhythm: regular rhythm Bruits: no carotid bruits Peripheral pulses: Peripheral pulses 2+ throughout GI Inspection: Yes normal to inspection, No abdominal wall ecchymosis and No visible herniation Palpation (GI): Soft to palpation, nontender, no guarding, not rigid and No hepatosplenomegaly present Auscultation: normoactive bowel sounds General: Yes no CVA tenderness Back/Spine/Pelvis Back: no CVA tenderness and No back tenderness Cervical Spine: cervical ROM normal Thoracic/Lumbar Spine: thoracic and lumbar spine normal to inspection, straight leg raise negative bilaterally, No thoraco-lumbar ROM limited and No lumbar spinal tenderness Skin Lesions: no lesions Rashes: no rashes Wounds: no wounds Neuro General: oriented to person, oriented to place, patient oriented x3, CN's II-XI intact bilaterally and No confusion Cranial nerves: Yes Equal, round and reactive pupils present and Yes Normal accommodation reflex present Cognition (Neuro): normal cognition Speech: No Abnormal speech present Gait exam (Neuro): Normal gait present Motor exam (neuro): 5/5 motor strength present throughout Extrem Right upper extremity: full ROM; no cyanosis Left upper extremity: full ROM; no cyanosis Right lower extremity: no edema Left lower extremity: no edema Psych Appearance: grossly normal Mental Status: mental status grossly normal Affect: normal affect Attitude: cooperative Thought process: Normal thought process present Assessment and Plan Assessment & Plan (1) Annual physical exam: Code(s): Z00.00 - Encounter for general adult medical examination without abnormal findings (2) Borderline high cholesterol: Code(s): E78.9 - Disorder of lipoprotein metabolism, unspecified Plan: Patient's most recent lipid panel showing improved total cholesterol and LDL. Will continue lifestyle modifications continued weight loss to help control her borderline high cholesterol. (3) Obese: Code(s): E66.9 - Obesity, unspecified Qualifiers: Obesity type: due to excess calories Obesity classification: adult class 1 (BMI 30 - 34.9) Serious obesity comorbidity presence: without serious comorbidity Body mass index: BMI 30.0-30.9 Qualified Code(s): E66.09 - Other obesity due to excess calories; Z68.30 - Body mass index [BMI] 30.0-30.9, adult Plan: Patient has been started on Ozempic and has noted weight loss. Her goal is to be 135 lb thus will increase dose of Ozempic for more weight loss. She also has made dietary changes (4) Asthma: Code(s): J45.909 - Unspecified asthma, uncomplicated Qualifiers: Asthma severity: mild Asthma persistence: intermittent Asthma complication type: uncomplicated Qualified Code(s): J45.20 - Mild intermittent asthma, uncomplicated Plan: Patient reports her asthma has been well controlled with only p.r.n. use her albuterol inhaler and daily use of her Advair. Denies any nighttime awakenings with asthma symptoms. (5) JETHRO (generalized anxiety disorder): Code(s): F41.1 - Generalized anxiety disorder Plan: Patient's JETHRO-7 score positive which has been existing condition for her. continues to have anxiety and PTSD to which she manages with mental health medications. (6) MDD (major depressive disorder): Code(s): F32.9 - Major depressive disorder, single episode, unspecified Qualifiers: Major depression recurrence: recurrent Active/Remission status: currently active Major depression episode severity: moderate Qualified Code(s): F33.1 - Major depressive disorder, recurrent, moderate Plan: Patient's PHQ-9 score positive for mild to moderate depression which has been existing condition for her. She continues with mood stabilizer and SSRI therapy with good effect on her mood and depression. Medications: Discontinued benzonatate Discontinued Reason: Doctor's Order 100 mg PO BID PRN 20 caps 0RF cough Coding Level of Care Code Est Pt Prev Care 40-64y([id number]) Diagnoses Annual physical exam Z00.00 Borderline high cholesterol E78.9 Class 1 obesity due to excess calories without serious comorbidity with body mass index (BMI) of 30.0 to 30.9 in adult E66.09; Z68.30 Obesity type: due to excess calories Obesity classification: adult class 1 (BMI 30 - 34.9) Serious obesity comorbidity presence: without serious comorbidity Body mass index: BMI 30.0-30.9 Mild intermittent asthma without complication J45.20 Asthma severity: mild Asthma persistence: intermittent Asthma complication type: uncomplicated JETHRO (generalized anxiety disorder) F41.1 Moderate episode of recurrent major depressive disorder F33.1 Major depression recurrence: recurrent Active/Remission status: currently active Major depression episode severity: moderate Additional Codes JETHRO-7 Assessment Billing - JETHRO-7 Assessment Tool: JETHRO-7 Assessment [id number] ([id number])
== END 2023-06-17 15:38 | disposition home or self-care (01) ==
PROVIDERS: PCP Physician Assistant; Visit Provider Physician Assistant
DX: Z00.00 Encounter for general adult medical examination without abnormal findings (principal); F33.1 Major depressive disorder, recurrent, moderate; E66.09 Other obesity due to excess calories; Z68.30 Body mass index [BMI] 30.0-30.9, adult; E78.9 Disorder of lipoprotein metabolism, unspecified; J45.20 Mild intermittent asthma, uncomplicated; F41.1 Generalized anxiety disorder
CPT/HCPCS: 99396

== ENCOUNTER 2023-09-10 07:13 | Emergency (ER) | payer OTHER, SELFPAY ==
[2023-09-10 07:36] VITALS: BP 144/81; PULSE 83; RESP 20; TEMP 37.2; O2SAT 98; BMI 23.0
[2023-09-10 07:53] LABS: MANUAL DIFF FLAG NO
[2023-09-10 08:07] LABS: Basophils Percent Auto 0.4 % (0-2); Eosinophils Percent Auto 0.7 % (0-4); Hematocrit 40.1 % (37.0-47.0); Hemoglobin 13.7 g/dl (12.0-16.0); Imm Gran Abs Auto 0.01 X10*3/uL (0.00-0.03); Imm Gran Pct Auto 0.2 % (0.0-0.4); Lymphocytes Absolute Auto 2.1 X10*3/uL (1.2-4.9); Lymphocytes Percent Auto 36.4 % (20-40); Mean Corpuscular HGB Conc 34.2 g/dl (31.0-35.0); Mean Corpuscular Hemoglobin 30.4 pg (27.0-33.0); Mean Corpuscular Volume 88.9 fL (80.0-98.0); Mean Platelet Volume 9.1 fL (9.4-12.3); Monocytes Absolute Auto 0.8 X10*3/uL (0.1-1.2); Monocytes Percent Auto 14.4 % (2-11); Neutrophils Absolute Auto 2.7 x10*3/uL (2.0-8.3); Neutrophils Percent Auto 47.9 % (45-73); Platelet Count 298 X10*3/uL (160-400); Red Blood Count 4.51 X10*6/uL (4.20-5.50); Red Cell Distribution Width 13.2 % (11.0-16.0); White Blood Count 5.6 X10*3/uL (4.8-10.8)
[2023-09-10 08:09] LABS: Alanine Aminotransferase 23 U/L (0-31); Albumin Level 4.2 g/dL (3.5-5.0); Alkaline Phosphatase 52 U/L (39-117); Anion Gap 11 (12-20); Aspartate Amino Transferase 35 U/L (5-31); Bilirubin Total 0.3 mg/dL (0.0-1.0); Blood Urea Nitrogen 9 mg/dL (9-16); Calcium 9.3 mg/dL (8.4-10.2); Carbon Dioxide 26 mmol/L (22-29); Chloride 105 mmol/L (96-108); Creatinine Clr Calc Pharmacy 62.6; Estimated Glomerular Filt Rate > 60; Glucose Random 85 mg/dL (60-115); Potassium 3.3 mmol/L (3.3-5.1); Sodium 139 mmol/L (135-145); Total Protein 6.9 g/dL (6.5-8.0)
[2023-09-10 08:43] LABS: Appearance Urine Clear; Color Urine Yellow; Glucose Urine UA Negative (Negative); Leukocyte Esterase Urine Trace (Negative); Nitrite Urine Negative (Negative); UMIC TRIGGER UACC YES; Urine Blood Negative (Negative); Urine Ketones 40 mg/dL (Negative); Urine Protein Trace mg/dL (Neg-Trace)
[2023-09-10 08:45] LABS: Influenza A PCR NEGATIVE (Negative); Influenza B PCR NEGATIVE (Negative); Resp Syncy Virus RNA Qual PCR NEGATIVE (Negative); SARS COV2 PCR INHOUSE POSITIVE (Negative)
[2023-09-10 08:51] LABS: Bacteria Urine None Seen (None Seen); Hyaline Casts Urine 0-2 /LPF (0-2); RBC Urine 0-2 /HPF (0-2); Squamous Epithelial Cell Urine 0-2 /HPF (0-2); WBC Urine 0-5 /HPF (0-5)
[2023-09-10] MEDS: ondansetron HCL 4 MG/2 ML VIAL IVPUSH (09:04)
[2023-09-10] MEDS: 0.9 % Sodium Chloride 1,000 ML 999 ML IVCONT (09:05)
--- NOTE | 2023-09-10 09:05 | ED_ITS ---
HPI - Nausea/Vomiting/Diarrhea General Chief complaint: Nausea/Vomiting/Diarrhea Stated complaint: vomiting, sweats Time Seen by Provider: 09/10/23 08:53 Source: patient and RN notes reviewed Mode of arrival: ambulatory Limitations: no limitations History of Present Illness ED Provider: Ivana Mayfield PA-C HPI Narrative: 63 year old female with history of asthma, anxiety, obesity, bronchitis, cellulisis and OA who is presenting for evaluation of nausea/vomiting x4 days. She has been traveling in [place] and [place], was seen in [place] ED for same complaint and diagnosed with gastritis, they did not test viral panel. She has been unable to keep food down and feels like she is dehydrated. Denies fevers but last night woke up with her sheets 'soaked' from sweating. Denies abdominal pain, just feels 'empty'. MD elicited complaint: nausea and vomiting Onset (ago): day(s) (4) Description of vomiting: food contents Associated nausea: Yes Associated abdominal pain: No Location of pain: none Quality: aching Relieving factors: eating Associated symptoms: myalgias, headaches, loss of appetite, malaise and nausea/vomiting Related Data Home Medications ?Medication ?Instructions ?Recorded ?Confirmed B-complex with vitamin C 1 tab PO DAILY 01/25/20 06/17/23 cetirizine 10 mg tablet 10 mg PO DAILY 01/25/20 06/17/23 cholecalciferol (vitamin D3) 25 25 mcg PO DAILY 01/25/20 06/17/23 mcg (1,000 unit) capsule multivitamin,xm-qirr-[id number] 1 tab PO DAILY 01/25/20 06/17/23 (Complete Multivitamin tablet) albuterol sulfate 90 mcg/actuation 1 inh inhalation QID PRN Wheezing 01/28/23 06/17/23 aerosol inhaler (Ventolin HFA) Previous Rx's ?Medication ?Instructions ?Recorded fluticasone propionate 50 1 spray intranasal BID 30 days #16 10/11/22 mcg/actuation nasal grams spray,suspension (Flonase Allergy Relief) fluticasone propionate 115 2 puff inhalation BID 30 days #12 10/15/22 mcg-salmeterol 21 mcg/actuation grams HFA inhaler (Advair HFA) leg brace (Knee Support Brace) #1 ea 12/16/22 prednisone 20 mg tablet 40 mg (2 x 20 mg) PO DAILY #10 tabs 04/28/23 pilocarpine HCl 7.5 mg tablet 7.5 mg PO DAILY 90 days #90 tabs 05/26/23 semaglutide 1 mg/dose (2 mg/1.5 1 mg (0.75 mL) subcut TU 4 weeks 06/26/23 mL) subcutaneous pen injector #3 mL fluoxetine 40 mg capsule 40 mg PO BEDTIME 90 days #90 caps 08/07/23 acetaminophen 650 mg 650 mg PO DAILY pain #60 tabs 09/02/23 tablet,extended release lamotrigine 200 mg tablet 300 mg (1.5 x 200 mg) PO BEDTIME 09/02/23 90 days #135 tabs trazodone 100 mg tablet 100 mg PO BEDTIME #90 tabs 09/02/23 ondansetron 4 mg disintegrating 4 mg PO Q8H PRN nausea and 09/10/23 tablet vomiting #7 tabs Allergies Allergy/AdvReac Type Severity Reaction Status Date / Time cat dander [cats] Allergy Rash Verified 09/10/23 07:37 kiwi Allergy Anaphylaxis Verified 09/10/23 07:37 Review of Systems 2 Review of Systems: Yes all other systems are reviewed and are negative Gastrointestinal: Gastrointestinal: Reports nausea PMFSH Past Medical History Medical History Dog bite Osteoarthritis of left knee Allergic rhinitis COVID-19 vaccine administered Trigger thumb of left hand Asthma Hypertriglyceridemia FH: ovarian cancer in first degree relative History of asthma Recovering alcoholic Hx of insomnia History of depression History of posttraumatic stress disorder (PTSD) Surgical History History of hand surgery History of blepharoplasty History of biopsy Hx of tubal ligation H/O elbow surgery History of bunionectomy Family History Family History Father Lung cancer Mother Afib Sister Ovarian cancer Other Mental health disorder Substance use disorder Social History Social History (Updated 06/17/23 @ 15:25 by Josemanuel Stroud PA-C) Housing: Apartment Are you a primary care process manager to a significant other at home: No Do you presently have visiting nurse or other home services: No Alcohol intake: never Patient Tobacco Use Status: Former Tobacco user Tobacco use type: Cigarette e-Cigarette/Vaping Use: Never Used Second Hand Smoke Exposure: No Substance Use Type: Marijuana Advance Directives: No Advance Directives Information Provided: No service: No Current occupational status: employed Current occupation: [employer] Cognitive needs: No Hearing needs: No Vision needs: Yes (glasses) Physical Exam 2 Vital Signs: Vital Signs: Last Vital Signs Temp 98.2 F 09/10/23 10:40 Pulse 65 09/10/23 10:40 Resp 16 09/10/23 10:40 BP 151/83 H 09/10/23 10:40 Pulse Ox 96 09/10/23 10:40 O2 Del Method Room Air 09/10/23 10:40 BMI result Body Mass Index 23.0 Appearance: Alert. Oriented X3. No acute distress. Head: normocephalic, atraumatic. Neck: Normal inspection. Neck supple. CVS: Normal heart rate and rhythm. Pulses normal. Respiratory: No respiratory distress. Breath sounds normal. Abdomen: Soft and nontender. +BS x4 Skin: Skin warm and dry. Normal skin color. Normal skin turgor. No rashes. Extremities: No lower extremity edema. No joint swelling. Neuro/psych: Oriented X 3. No motor deficit. No sensory deficit. CN II-XII grossly intact. Normal speech and cognition. Medications Administered Discontinued Medications Generic Name Dose Route Start Last Admin Trade Name Freq PRN Reason Stop Dose Admin Sodium Chloride 1,000 mls @ 999 mls/hr 09/10/23 09:00 09/10/23 10:13 Ns IVCONT 09/10/23 10:00 Infused .Q1H1M PREM Infusion Ondansetron HCl 4 mg 09/10/23 08:51 09/10/23 09:04 Ondansetron Hcl 4 Mg/2 Ml Vial IVPUSH 09/10/23 08:52 4 mg ONCE ONE Administration Medical Decision Making Medical Decision Making MDM Narrative: 63 year old female presenting for evaluation of nausea/vomitting x4 days. Viral swab positive for COVID-19 infection, likely explains symptoms of sweats, N/V. Concern for dehydration given inability to tolerate PO, gave IVF. No abdominal tenderness, low concern for acute GI process. Zofran given for nausea with improvement. Patient feeling better after fluids, hungry. She is tolerating p.o.. Stable for discharge with supportive care. Differential Diagnosis Differential Diagnoses: The differential diagnosis associated with the presentation includes Flu, COVID, gastritis, dehydration Lab Data MDM Lab Attestation statement: I reviewed the patient's lab results. No leukocytosis, no significant electrolyte abnormality, normal renal function 09/10/23 07:49 09/10/23 07:49 Labs: Lab Results 09/10/23 09/10/23 Range/Units 07:49 08:37 WBC 5.6 (4.8-10.8) X10*3/uL RBC 4.51 (4.20-5.50) X10*6/uL Hgb 13.7 (12.0-16.0) g/dl Hct 40.1 (37.0-47.0) % MCV 88.9 (80.0-98.0) fL MCH 30.4 (27.0-33.0) pg MCHC 34.2 (31.0-35.0) g/dl RDW 13.2 (11.0-16.0) % Plt Count 298 (160-400) X10*3/uL MPV 9.1 L (9.4-12.3) fL Immature Gran % (Auto) 0.2 (0.0-0.4) % Neut % (Auto) 47.9 (45-73) % Lymph % (Auto) 36.4 (20-40) % [place] % (Auto) 14.4 H (2-11) % Eos % (Auto) 0.7 (0-4) % Baso % (Auto) 0.4 (0-2) % Lymph # (Auto) 2.1 (1.2-4.9) X10*3/uL [place] # (Auto) 0.8 (0.1-1.2) X10*3/uL Eos # (Auto) 0.0 (0.0-0.4) X10*3/uL Baso # (Auto) 0.0 (0.0-0.2) X10*3/uL Abs Immat Gran (auto) 0.01 (0.00-0.03) X10*3/uL Absolute Neuts (auto) 2.7 (2.0-8.3) x10*3/uL Absolute Nucleated RBC 0.000 (0.0-0.012) X10*3/uL Nucleated RBC % (auto) 0.0 (0.0-0.2) /100WBC Sodium 139 (135-145) mmol/L Potassium 3.3 (3.3-5.1) mmol/L Chloride 105 (96-108) mmol/L Carbon Dioxide 26 (22-29) mmol/L Anion Gap 11 L (12-20) BUN 9 (9-16) mg/dL Creatinine 0.78 (0.5-1.4) mg/dL Estim Creat Clear Calc 62.6 Estimated GFR > 60 Random Glucose 85 (60-115) mg/dL Calcium 9.3 (8.4-10.2) mg/dL Total Bilirubin 0.3 (0.0-1.0) mg/dL AST 35 H (5-31) U/L ALT 23 (0-31) U/L Alkaline Phosphatase 52 (39-117) U/L Total Protein 6.9 (6.5-8.0) g/dL Albumin 4.2 (3.5-5.0) g/dL Urine Color Yellow Urine Appearance Clear Urine pH 6.0 (5.0-9.0) Ur Specific Venus 1.020 (1.005-1.025) Urine Protein Trace (Neg-Trace) mg/dL Urine Glucose (UA) Negative (Negative) mg/dL Urine Ketones 40 (Negative) mg/dL Urine Blood Negative (Negative) Urine Nitrite Negative (Negative) Ur Leukocyte Esterase Trace H (Negative) Urine RBC 0-2 (0-2) /HPF Urine WBC 0-5 (0-5) /HPF Ur Squamous Epith Cells 0-2 (0-2) /HPF Urine Bacteria None Seen (None Seen) Hyaline Casts 0-2 (0-2) /LPF Influenza Type A (PCR) NEGATIVE (Negative) Influenza Type B (PCR) NEGATIVE (Negative) RSV RNA Qual (PCR) NEGATIVE (Negative) SARS-CoV-2 RNA (RT-PCR) POSITIVE A (Negative) External Record Review External record reviewed: Outpatient record, Prior outpatient labs and Prior outpatient radiology Tests considered The following testing was considered but not selected: cxr considered - no cough, not hypoxic Prescription Management I considered prescription management with: Antiviral Does not fallen timeline for paxlovid Chronic Conditions Patient?s care impacted by: Other (Asthma) Critical Care Time Critical Care Time Critical Care Time: No Discharge Plan Discharge Clinical Impression: COVID-19 Patient Disposition: Home, Self-Care Instructions: COVID-19 (Coronavirus Disease 2019) (ED) Additional Instructions: You tested positive for COVID-19 which likely explains your symptoms of nausea/vomiting and sweats.You were rehydrated with IV fluids and given a medication called zoan to help with the nausea. This will likely resolve on its own in a few days. Continue drinking plenty of fluids. Symptomatic care with tylenol or ibuprofen is okay as needed. If you develop new or worsening symptoms call 911 or come back to the ER for further evaluation. Prescriptions: New ondansetron 4 mg tablet,disintegrating 4 mg PO Q8H PRN (Reason: nausea and vomiting) Qty: 7 0RF No Action fluticasone propionate [Flonase Allergy Relief] 50 mcg/actuation spray,suspension 1 spray intranasal BID 30 Days Qty: 16 3RF Rx Instructions: administer into each nostril Advair HFA 115-21 mcg/actuation HFA aerosol inhaler 2 puff inhalation BID 30 Days Qty: 12 4RF pilocarpine HCl 7.5 mg tablet 7.5 mg PO DAILY 90 Days Qty: 90 1RF semaglutide 1 mg/dose (2 mg/1.5 mL) pen injector 1 mg subcut TU 28 Days Qty: 3 3RF fluoxetine 40 mg capsule 40 mg PO BEDTIME 90 Days Qty: 90 1RF acetaminophen 650 mg tablet extended release 650 mg PO DAILY Qty: 60 3RF lamotrigine 200 mg tablet 300 mg PO BEDTIME 90 Days Qty: 135 2RF trazodone 100 mg tablet 100 mg PO BEDTIME Qty: 90 2RF albuterol sulfate [Ventolin HFA] 90 mcg/actuation HFA aerosol inhaler 1 inh inhalation QID PRN (Reason: Wheezing) (DME) Knee Support Brace Misc See Rx Instructions .Route Qty: 1 0RF Rx Instructions: Need for left support knee brace prednisone 20 mg tablet 40 mg PO DAILY Qty: 10 0RF cetirizine 10 mg tablet 10 mg PO DAILY cholecalciferol (vitamin D3) 25 mcg (1,000 unit) capsule 25 mcg PO DAILY B-complex with vitamin C Tablet 1 tab PO DAILY Complete Multivitamin Tablet 1 tab PO DAILY Interventions: ED Discharge Assessment Last Done: 09/10/23 10:40 Discharge Date/Time: 09/10/23 10:41 Print Language: Swedish
[2023-09-10 10:40] VITALS: BP 151/83; PULSE 65; RESP 16; TEMP 36.8; O2SAT 96
--- OUTSIDE RECORDS SUMMARY | 2023-09-12 10:09 | XMS_ITS | Patient Health Record ---
Author Organization [facility] Address [address] [place] [address] Care Team Providers Care Center Human Resources Manager Name Role Phone Josemanuel Stroud Primary Care Provider Unavailab Zac Phelan Unavailable [phone] ALLERGIES No Known Allergies REASON FOR REFERRAL No Information MEDICATIONS Medication SIG (Take, Route, Fr equency, Duration) Notes Start Date End Date Status Fluoxetine 40MG Active traZODone HCl 100 MG 1 tablet at bedtime Orally Once a day for 30 day(s) Active SOCIAL HISTORY Tobacco Use: Social History Observation Description Date Details (start date - stop date) Former Smoker NA - NA Sex Assigned At : Social History Observation Description Sex Assigned At Unknown Tobacco Use/Smoking Question Answer Notes Are you a: former smoker Additional Findings: Tobacco Non-User Current no n-smoker Alcohol Screen Question Answer Notes Did you have a drink containing alcohol in the p ast year? No Points 0 Interpretation Negative Tobacco use other than smoking: Question Answer Notes Are you an other tobacco user? No PLAN OF TREATMENT Pending Test Test Name Order Date X ray : Foot, left 3V 04/19/2022 X ray : Foot, right 3V 04/19/2022 Insurance Providers Payer Name Payer Address Payer Phone Subscriber Number Group Number Insured Name Patient Relationship to Insured Coverage Start Date Coverage End Date [facility] CCA S[employer] Claims [address] [place] [phone] [id number] Roselia Pa Self - patient is the insured MEDICAL (GENERAL) HISTORY Medical History History ICD Code Anxiety Back,Hip,and Knee pain Broken bones Depression Gout Surgical History Surgery Date(Month/Year) foot surgery 2x
== END 2023-09-10 10:41 | disposition home or self-care (01) ==
PROVIDERS: Emergency Provider Emergency Medicine; PCP Physician Assistant
DX: U07.1 COVID-19 (principal); Z87.891 Personal history of nicotine dependence
CPT/HCPCS: 0241U; 36415; 80053; 81001; 85025; 96361; 96374; 99283; 99284; J2405

== ENCOUNTER 2023-10-22 14:24 | Outpatient (AMB) | payer OTHER, SELFPAY ==
--- NOTE | 2023-10-22 14:30 | A.OFFVIS_ITS ---
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 She is doing well with no concerns. Attempting to eat a healthy diet with calcium and vitamin D and stays active with exercise. Currently not sexually active. Denies any vaginal dryness or irritation. STI testing offered; she declined. Last pap smear; 2020, negative. Last mammogram; 2022. Cologard completed. Denies any family history of breast, ovarian or colon cancer. [facility] Medical History Dog bite Osteoarthritis of left knee Allergic rhinitis COVID-19 vaccine administered Trigger thumb of left hand Asthma Hypertriglyceridemia FH: ovarian cancer in first degree relative History of asthma Recovering alcoholic Hx of insomnia History of depression History of posttraumatic stress disorder (PTSD) Surgical History History of hand surgery History of blepharoplasty History of biopsy Hx of tubal ligation H/O elbow surgery History of bunionectomy Family History Father Lung cancer Mother Afib Sister Ovarian cancer Other Mental health disorder Substance use disorder Social History Housing: Apartment Are you a primary medicare sales executive to a significant other at home: No Do you presently have visiting nurse or other home services: No Alcohol intake: never Patient Tobacco Use Status: Former Tobacco user Tobacco use type: Cigarette e-Cigarette/Vaping Use: Never Used Second Hand Smoke Exposure: No Substance Use Type: Marijuana service: No Current occupational status: employed Current occupation: [employer] Cognitive needs: No Hearing needs: No Vision needs: Yes (glasses) Female Reproductive History Menstrual Age of Menarche: 14 control method: permanent sterilization Permanent Sterilization: BTL Total pregnancies: 4 Full term: 1 Number of Living Children: 1 Date of last pap smear: 04/24/20 (neg pap and hpv) Date of Mammogram: 04/04/23 (Birad 2) Review of Systems Const All systems reviewed & are unremarkable except as noted in HPI and below Reports as per HPI Eyes Reports no additional complaints ENT Reports no additional complaints Card Reports no additional complaints Resp Reports no additional complaints GI Reports as per HPI and Reports no additional complaints Reports as per HPI Musc Reports no additional complaints Skin/Breast Reports as per HPI Neuro Reports no additional complaints Psych Reports no additional complaints Endo Reports no additional complaints Daniel/Lymph Reports no additional complaints Aller/Immun Reports no additional complaints Physical Exam Vital Signs: Last Vital Signs BP 110/72 10/22/23 14:32 BMI result Body Mass Index 23.9 Const General: cooperative, healthy appearing, no acute distress, well developed and alert Orientation/consciousness: patient oriented x3 HEENT Head: Yes normal to inspection Eyes General: appearance normal, both eyes and all related structures Neck Neck: Yes normal visual inspection Thyroid: Thyroid normal Chest Chest palpation & inspection: normal inspection of the chest and other (no puckering, dimpling, peau de orange, retraction, discharge, masses) Breast/axilla inspection: normal inspection of the breasts Breast/axilla palpation: normal palpation of the breasts Resp Effort & Inspection: normal respiratory effort GI Inspection: Yes normal to inspection Palpation (GI): Soft to palpation Rectal Exam - Female: deferred General: Yes bladder normal to palpation External Female Exam: normal external appearance and normal appearance of the urethra Speculum Exam - Vagina: normal appearance of the vagina, normal palpation, normal vaginal discharge and vagina atrophic Speculum Exam - Cervix: normal appearance of the cervix and normal palpation Bimanual exam- vagina & uterus: normal bimanual exam, normal palpation, uterine size normal, bladder normal to palpation, normal palpation and non-tender Bimanual Exam- Adnexa, other: no masses Skin General skin exam: no rashes or lesions noted Rashes: no rashes Neuro General: patient oriented x3 Cognition (Neuro): normal cognition Extrem General: Yes normal to inspection Psych Attitude: cooperative Thought process: Normal thought process present Assessment & Plan Assessment & Plan (1) Encounter for well woman exam with routine gynecological exam: Code(s): Z01.419 - Encounter for gynecological examination (general) (routine) without abnormal findings Category: Medical Plan: Discussed: Current recommendations for pap smears per ASCCP guidelines. Breast awareness, periodic self breast exams and yearly mammogram. Maintain a healthy lifestyle, well balanced diet including Calcium 1,200 mg and Vitamin D 600 IU daily, and routine exercise. Contact the office with any postmenopausal bleeding. Patient verbalizes understanding and agrees to the plan of care. She was given opportunity to ask questions and all questions were answered to the best of my ability. 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 This note is constructed using voice recognition software. While every effort has been made to ensure accuracy, credit risk associate errors may have been included. Coding Level of Care Code Est Pt Prev Care 40-64y(83239) Diagnoses Encounter for well woman exam with routine gynecological exam Z01.419
[2023-10-22 14:32] VITALS: BP 110/72; BMI 23.9
== END 2023-10-22 14:56 | disposition home or self-care (01) ==
PROVIDERS: PCP Physician Assistant; Visit Provider Advanced Practice Midwife
DX: Z01.419 Encounter for gynecological examination (general) (routine) without abnormal findings (principal)
CPT/HCPCS: 99396

== ENCOUNTER → 2023-10-22 14:24 | Outpatient (BNVA) | payer OTHER, SELFPAY | PROVIDERS: PCP Physician Assistant; Visit Provider Advanced Practice Midwife ==

== ENCOUNTER 2023-10-22 15:16 | Outpatient (AMB) | payer OTHER, SELFPAY ==
--- NOTE | 2023-10-22 15:22 | AM.OFFWIN_ITS ---
Intake Vital Signs 10/22/23 15:23 Height 5 ft 3 in Weight 134 lb BMI 23.7 BP 116/76 Blood Pressure Location Lt brachial Position Sitting Pulse 79 Pulse Source Pulse Oximeter Temp 98.5 F Temp Source Oral Pulse Oximetry (%) 98 Oxygen Delivery Method Room Air Intake Visit Reasons: EP LT foot injury Intake Note: Pt is here c/o LT foot pain. Started 2 weeks ago Patient Tobacco Use Status: Former Tobacco user Allergies cat dander [cats] Allergy (Verified 10/22/23 15:22) Rash kiwi Allergy (Verified 10/22/23 15:22) Anaphylaxis Do you need a note to return to daycare/school/sports/work: No HPI HPI Comments History of Present Illness Details Patient is a 63-year-old female complaining of left foot pain x2 weeks. She states 2 weeks ago she walked into the wheel of a hospital bed at [facility]. The significantly but seemed to get better and she managed to walk on it for the last 2 weeks. However she states she was walking on [employer] for 4 hours for 2 days in a row 3 and 4 days ago and she thinks this may have irritated it. She states she is feeling numbness and tingling in her pinky toe and alongside of the left outside of her foot as well as some pain with walking. She has not tried to take any medications or do anything to make it feel better. [facility] Medical History Dog bite Osteoarthritis of left knee Allergic rhinitis COVID-19 vaccine administered Trigger thumb of left hand Asthma Hypertriglyceridemia FH: ovarian cancer in first degree relative History of asthma Recovering alcoholic Hx of insomnia History of depression History of posttraumatic stress disorder (PTSD) Surgical History History of hand surgery History of blepharoplasty History of biopsy Hx of tubal ligation H/O elbow surgery History of bunionectomy Family History Father Lung cancer Mother Afib Sister Ovarian cancer Other Mental health disorder Substance use disorder Social History Housing: Apartment Are you a primary career services manager to a significant other at home: No Do you presently have visiting nurse or other home services: No Alcohol intake: never Patient Tobacco Use Status: Former Tobacco user Tobacco use type: Cigarette e-Cigarette/Vaping Use: Never Used Second Hand Smoke Exposure: No Substance Use Type: Marijuana service: No Current occupational status: employed Current occupation: [employer] Cognitive needs: No Hearing needs: No Vision needs: Yes (glasses) Female Reproductive History Menstrual Age of Menarche: 14 Review of Systems Const All systems reviewed & are unremarkable except as noted in HPI and below Physical Exam Vital Signs: Last Vital Signs Temp 98.5 F 10/22/23 15:23 Pulse 79 10/22/23 15:23 BP 116/76 10/22/23 15:23 Pulse Ox 98 10/22/23 15:23 Oxygen Delivery Method Room Air 10/22/23 15:23 BMI result Body Mass Index 23.7 Const General: cooperative, healthy appearing, comfortable and no acute distress Orientation/consciousness: patient oriented x3 Limitations: no limitations HEENT Head: Yes normal to inspection Resp Effort & Inspection: normal respiratory effort and able to speak in complete sentences Neuro General: patient oriented x3 Extrem Left lower extremity: foot Details: normal capillary refill, normal to inspection, tenderness Location: of the lateral foot Location: in the mid- section and at the base of the 5th metatarsal, toes with normal ROM, no edema, vascular exam Details: dorsalis pedis pulse present, posterior tibial pulse present and normal capillary refill and motor-sensory exam Details: light-touch normal; no abrasions, no lacerations and no ecchymosis Assessment & Plan Assessment & Plan (1) Left foot pain: Code(s): M79.672 - Pain in left foot Plan: Xray appears unremarkable, waiting on Rads read. I placed patient in boot for comfort and rest, advised to use ice and a leave around the clock for the next couple of days as well as the boot. If no improvement in the next 5-7 days, she should follow up with her primary care doctor for ortho referral vs PT. (2) Numbness of toes: Code(s): R20.0 - Anesthesia of skin Plan: see above Plan see above Orders: Orders XR foot LT min 3V Today M79.672 - Pain in left foot, R20.0 - Anesthesia of skin Coding Level of Care Code Est Pt Level 3 (22478) Diagnoses Left foot pain M79.672 Numbness of toes R20.0
[2023-10-22 15:23] VITALS: BP 116/76; PULSE 79; TEMP 36.9; O2SAT 98; BMI 23.7
--- OUTSIDE RECORDS SUMMARY | 2023-10-22 15:23 | XMS_ITS | Patient Health Record ---
Author Organization [facility] Address [address] [place] [address] Care Team Providers Care Manager Diabetes Name Role Phone Josemanuel Stroud Primary Care Provider Unavailab Zac Phelan Unavailable [phone] ALLERGIES No Known Allergies REASON FOR REFERRAL [...] Insured Coverage Start Date Coverage End Date [facility] CCA SCO Claims [address] [place] [phone] [id number] Roselia Pa Self - patient is the insured MEDICAL (GENERAL) HISTORY Medical History History ICD Code Anxiety Back,Hip,and Knee pain Broken bones Depression Gout Surgical History Surgery Date(Month/Year) foot surgery 2x
== END 2023-10-22 16:53 | disposition home or self-care (01) ==
PROVIDERS: PCP Physician Assistant; Visit Provider Physician Assistant
DX: M79.672 Pain in left foot (principal); R20.0 Anesthesia of skin
CPT/HCPCS: 99213

== ENCOUNTER 2023-10-22 15:35 | Outpatient (REF) | payer OTHER, SELFPAY ==
--- NOTE | ~2023-10-22 | XR_ITS ---
EXAMINATION: XR FOOT, LEFT CLINICAL INFORMATION: Left foot pain COMPARISON: 05/09/2012 TECHNIQUE: 3 views of the left foot. FINDINGS: Bones have normal alignment throughout the foot. The joint spaces are well-preserved. No arthritic deformity. No evidence of acute fracture, subluxation or focal soft tissue swelling. There appears to be remote Tailor's bunion surgery of the distal 5th metatarsal. Mild, 18 degrees hallux valgus. XR/XR foot LT min 3V IMPRESSION: * No evidence of acute osseous injury in the left foot. * Mild hallux valgus. * Probable remote 5th metatarsal bunion surgery.
== END 2023-10-22 15:36 | disposition home or self-care (01) ==
LOC: HO.HMGCX 15:35
PROVIDERS: PCP Physician Assistant; Visit Provider Physician Assistant
DX: M79.672 Pain in left foot (principal); R20.0 Anesthesia of skin
CPT/HCPCS: 73630

== ENCOUNTER 2023-12-18 14:57 | Outpatient (AMB) | payer OTHER, SELFPAY ==
--- NOTE | 2023-12-18 15:03 | A.OFFPC_ITS ---
Vital Signs 12/18/23 15:08 Height 5 ft 3 in Weight 138 lb BMI 24.4 BP 130/80 Blood Pressure Location Lt brachial Position Sitting Pulse 74 Pulse Source Pulse Oximeter Pulse Oximetry (%) 96 Oxygen Delivery Method Room Air Intake Visit Reasons: f/u HLD Sales Representative Required: No Accompanied by: Self / Same As Patient Allergies cat dander [cats] Allergy (Verified 12/18/23 15:17) Rash kiwi Allergy (Verified 12/18/23 15:17) Anaphylaxis Medication List - Last Reconciled 12/18/23 by Josemanuel Stroud PA-C acetaminophen ER 650 mg PO DAILY albuterol sulfate 90 mcg/actuation (Ventolin HFA) 1 inh inhalation QID PRN 30 days B-complex with vitamin C 1 tab PO DAILY cetirizine 10 mg PO DAILY cholecalciferol (vitamin D3) 25 mcg PO DAILY fluoxetine 40 mg PO BEDTIME 90 days fluticasone propion-salmeterol 115-21 mcg/actuation (Advair HFA) 2 puffs inhalation BID 30 days fluticasone propionate 50 mcg/actuation (Flonase Allergy Relief) 1 spray intranasal BID 30 days lamotrigine 300 mg (1.5 x 200 mg) PO BEDTIME 90 days leg brace (Knee Support Brace) Need for left support knee brace multivitamin,[id number] (Complete Multivitamin tablet) 1 tab PO DAILY ondansetron 4 mg PO Q8H PRN pilocarpine HCl 7.5 mg PO DAILY 90 days semaglutide 1 mg (0.75 mL) subcut TU 4 weeks trazodone 100 mg PO BEDTIME Tobacco use date assessed: 12/18/23 Dental Screening Dental Screen Date: 12/18/23 Did you have a dental visit in the last 12 months?: Yes Did you have a dental problem in the last 6 months where you did not have access to dental care?: No Was dental information given to patient?: Patient has dentist HPI f/u HLD HPI Details Patient is a 63-year-old female here today for a follow-up visit. Patient has a past medical history significant for asthma, borderline high total cholesterol, generalized anxiety disorder, major depressive disorder. / Borderline high cholesterol: Most recent lipid panel showing improved cholesterol has been working on lifestyle modifications on reducing her cholesterol foods. .. Asthma: Has been well controlled as of late, and daily use of Advair has been helpful. She rarely has to use her albuterol inhaler. .. Anxiety /depression: She reports depression and anxiety has been fairly well controlled. She has been working with a mental health therapist. On high dose of SSRI therapy. .. Obesity: Has been started on Ozempic and has been able to lose a significant amount of weight. Now BMI of 24 and 143 lb. Her goal weight is to be on 135 lb thus will increase dose of Ozempic. [facility] Medical History Dog bite Osteoarthritis of left knee Allergic rhinitis COVID-19 vaccine administered Trigger thumb of left hand Asthma Hypertriglyceridemia FH: ovarian cancer in first degree relative History of asthma Recovering alcoholic Hx of insomnia History of depression History of posttraumatic stress disorder (PTSD) Surgical History History of hand surgery History of blepharoplasty History of biopsy Hx of tubal ligation H/O elbow surgery History of bunionectomy Family History Father Lung cancer Mother Afib Sister Ovarian cancer Other Mental health disorder Substance use disorder Social History Housing: Apartment Are you a primary direct care supervisor to a significant other at home: No Do you presently have visiting nurse or other home services: No Alcohol intake: never Patient Tobacco Use Status: Former Tobacco user Tobacco use type: Cigarette e-Cigarette/Vaping Use: Never Used Second Hand Smoke Exposure: No Substance Use Type: Marijuana service: No Current occupational status: employed Current occupation: [employer] Cognitive needs: No Hearing needs: No Vision needs: Yes (glasses) Female Reproductive History Menstrual Age of Menarche: 14 Questionnaire Thrive Questionnaire Date Thrive assessed: 06/17/23 JETHRO-7 AMB Questionnaire JETHRO-7 Date JETHRO - 7 assessed: 06/17/23 Source: Developed by Drs. Sarwat Ledezma, Shannon Rock, Win Peralta and colleagues, with an educational heather from [employer]. Review of Systems Const Denies headache(s) Eyes Denies loss of vision ENT Denies vertigo, Denies dizziness, Denies headache(s) and Denies sore throat Card Denies chest pain, Denies leg edema and Denies lightheadedness Resp Denies cough, Denies hemoptysis and Denies wheezing GI Denies abdominal pain, Denies melena, Denies constipation, Denies diarrhea and Denies vomiting Denies urinary frequency, Denies dysuria and Denies urinary urgency Musc Denies arthralgias, Denies joint swelling, Denies numbness and Denies tingling Neuro Denies Abnormal speech present, Denies behavioral changes, Denies vertigo, Denies dizziness, Denies headache(s), Denies loss of vision, Denies memory loss, Denies numbness and Denies tingling Psych Denies anxiety, Denies behavioral changes, Denies depression, Denies memory loss and Denies panic attacks Daniel/Lymph Denies easy bleeding and Denies easy bruising Aller/Immun Denies wheezing Physical exam (Primary Care) Vital Signs: Last Vital Signs Pulse 74 12/18/23 15:08 BP 130/80 12/18/23 15:08 Pulse Ox 96 12/18/23 15:08 Oxygen Delivery Method Room Air 12/18/23 15:08 BMI result Body Mass Index 24.4 Tobacco/Smoking Status: Tobacco use Status Tobacco use date assessed 12/18/23 12/18/23 15:11 Patient Tobacco Use Status Former Tobacco user 12/18/23 15:03 Tobacco use type Cigarette 12/18/23 15:03 e-Cigarette/Vaping Use Never Used 12/18/23 15:03 Thrive Assessment: Date of Thrive Assessment Date Thrive assessed 06/17/23 12/18/23 15:03 Const General: healthy appearing, no acute distress, alert and awake Nutritional Appearance: well nourished Orientation/consciousness: oriented to person, oriented to place and oriented to time HENMT Ears: TM's normal bilaterally General nose exam: Normal nasal mucous membranes and turbinates present Eyes Conjunctivae: conjunctivae normal Sclerae: sclerae normal Pupils: Equal, round and reactive pupils present Neck Neck: Yes no lymphadenopathy and Yes no JVD Thyroid: Thyroid normal Carotids: no bruits Resp Effort & Inspection: normal respiratory effort and not tachypneic Auscultation: no crackles, no rales, no rhonchi and no wheezes Cardio Rate: regular rate Rhythm: regular rhythm Heart sounds: no murmurs and normal S1 and S2 GI Palpation (GI): Soft to palpation, nontender, no hepatomegaly and no splenomegaly Auscultation: normal bowel sounds Skin General skin exam: no rashes or lesions noted and dry skin Neuro General: oriented to person, oriented to place and oriented to time Cranial nerves: Yes Equal, round and reactive pupils present Speech: No Abnormal speech present Gait exam (Neuro): Normal gait present Motor exam (neuro): no tremor noted Extrem Right upper extremity: full ROM Left upper extremity: full ROM Right lower extremity: full ROM; no edema Left lower extremity: full ROM; no edema Psych Mental Status: mental status grossly normal Speech and movement: Normal speech and movement present Affect: normal affect Attitude: cooperative Thought process: Normal thought process present Assessment and Plan Assessment & Plan (1) Borderline high cholesterol: Code(s): E78.9 - Disorder of lipoprotein metabolism, unspecified Plan: Patient's most recent lipid panel showing improved total cholesterol and LDL. Will continue lifestyle modifications continued weight loss to help control her borderline high cholesterol. (2) Obese: Code(s): E66.9 - Obesity, unspecified Qualifiers: Body mass index: BMI 30.0-30.9 Obesity classification: adult class 1 (BMI 30 - 34.9) Obesity type: due to excess calories Serious obesity comorbidity presence: without serious comorbidity Qualified Code(s): E66.09 - Other obesity due to excess calories; Z68.30 - Body mass index [BMI] 30.0-30.9, adult Plan: Patient has been started on Ozempic and has noted weight loss. BMI today at 24. Her goal is to be 135 lb thus will increase dose of Ozempic for more weight loss. She also has made dietary changes (3) Asthma: Code(s): J45.909 - Unspecified asthma, uncomplicated Qualifiers: Asthma complication type: uncomplicated Asthma persistence: intermittent Asthma severity: mild Qualified Code(s): J45.20 - Mild intermittent asthma, uncomplicated Plan: Patient reports her asthma has been well controlled with only p.r.n. use her albuterol inhaler and daily use of her Advair. Denies any nighttime awakenings with asthma symptoms. Orders: Orders Comprehensive [place]. Panel Fast 12/18/23 E78.9 - Disorder of lipoprotein metabolism, unspecified Complete Blood Count no Diff 09/12/24 J45.20 - Mild intermittent asthma, uncomplicated Lipid Panel 12/18/23 E78.9 - Disorder of lipoprotein metabolism, unspecified Medications: Refilled fluticasone propionate 50 mcg/actuation (Flonase Allergy Relief) administer into each nostril 1 spray intranasal BID 16 grams 3RF 30 days J30.9 - Allergic rhinitis, unspecified trazodone 100 mg PO BEDTIME 90 tabs 2RF E66.09 - Other obesity due to excess calories, Z68.30 - Body mass index [BMI] 30.0-30.9, adult leg brace (Knee Support Brace) Need for left support knee brace 1 ea 0RF M17.12 - Unilateral primary osteoarthritis, left knee fluoxetine 40 mg PO BEDTIME 90 caps 1RF 90 days F33.1 - Major depressive disorder, recurrent, moderate fluticasone propion-salmeterol 115-21 mcg/actuation (Advair HFA) 2 puffs inhalat ion BID 12 grams 4RF 30 days J45.20 - Mild intermittent asthma, uncomplicated semaglutide 1 mg (0.75 mL) subcut TU 3 mL 3RF 4 weeks E66.09 - Other obesity due to excess calories, Z68.30 - Body mass index [BMI] 30.0-30.9, adult Patient Instructions: Goal: Total cholesterol to be below 200 LDL to remain below 160. Barriers: Adherence to physical activity and healthy eating habits Coding Level of Care Code Est Pt Level 3 (66141) Diagnoses Borderline high cholesterol E78.9 Class 1 obesity due to excess calories without serious comorbidity with body mass index (BMI) of 30.0 to 30.9 in adult E66.09; Z68.30 Body mass index: BMI 30.0-30.9 Obesity classification: adult class 1 (BMI 30 - 34.9) Obesity type: due to excess calories Serious obesity comorbidity presence: without serious comorbidity Mild intermittent asthma without complication J45.20 Asthma complication type: uncomplicated Asthma persistence: intermittent Asthma severity: mild
[2023-12-18 15:08] VITALS: BP 130/80; PULSE 74; O2SAT 96; BMI 24.4
== END 2023-12-18 15:33 | disposition home or self-care (01) ==
PROVIDERS: PCP Physician Assistant; Visit Provider Physician Assistant
DX: E78.9 Disorder of lipoprotein metabolism, unspecified (principal); E66.09 Other obesity due to excess calories; Z68.30 Body mass index [BMI] 30.0-30.9, adult; J45.20 Mild intermittent asthma, uncomplicated
CPT/HCPCS: 99213

== ENCOUNTER 2024-03-23 13:19 | Outpatient (AMB) | payer OTHER, SELFPAY ==
--- OUTSIDE RECORDS SUMMARY | 2024-03-23 13:20 | XMS_ITS | Patient Health Record ---
Author Organization [facility] Address [address] [place] [address] Care Team Providers Care Gate Person Name Role Phone Josemanuel Stroud Primary Care Provider Unavailab Zac Phelan Unavailable [phone] Allergies No Known Allergies Reason For Referral No Information Medications Medication SIG (Take, Route, Fr equency, Duration) Notes Start Date End Date Status Fluoxetine 40MG Active traZODone HCl 100 MG 1 tablet at bedtime Orally Once a day for 30 day(s) Active Social History Tobacco Use: Social History Observation Description Date Details (start date - stop date) Former Smoker NA - NA Tobacco Use/Smoking Question Answer Notes Are you a: former smoker Additional Findings: Tobacco Non-User Current no n-smoker Alcohol Screen Question Answer Notes Did you have a drink containing alcohol in the p ast year? No Points 0 Interpretation Negative Tobacco use other than smoking: Question Answer Notes Are you an other tobacco user? No Plan Of Treatment Pending Test Test Name Order Date X ray : Foot, left 3V 04/19/2022 X ray : Foot, right 3V 04/19/2022 Insurance Providers Payer Name Payer Address Payer Phone Subscriber Number Group Number Insured Name Patient Relationship to Insured Coverage Start Date Coverage End Date [facility] [employer] Claims [address] [place] [id number] Roselia Pa Self - patient is the insured Medical (General) History Medical History History ICD Code Anxiety Back,Hip,and Knee pain Broken bones Depression Gout Surgical History Surgery Date(Month/Year) foot surgery 2x
[2024-03-23 13:25] VITALS: BP 130/80; PULSE 72; TEMP 36.7; O2SAT 97; BMI 24.4
--- NOTE | 2024-03-23 13:25 | AM.OFFWIN_ITS ---
Intake Vital Signs 03/23/24 13:25 Height 5 ft 3 in Weight 138 lb BMI 24.4 BP 130/80 Blood Pressure Location Rt brachial Position Sitting Pulse 72 Pulse Source Pulse Oximeter Temp 98.1 F Temp Source Oral Pulse Oximetry (%) 97 Oxygen Delivery Method Room Air Intake Visit Reasons: EP tight chest, dark green, phlegm, SOB Intake Note: pt is here for chest tightness and phelm cough Patient Tobacco Use Status: Former Tobacco user Allergies cat dander [cats] Allergy (Verified 03/23/24 14:05) Rash kiwi Allergy (Verified 03/23/24 14:05) Anaphylaxis Medication List - Last Reconciled 03/23/24 by Jonathan Hills MD acetaminophen ER 650 mg PO DAILY albuterol sulfate 90 mcg/actuation (Ventolin HFA) 1 inh inhalation QID PRN 30 days azithromycin take 500 mg today (day 1), then 250 mg for 4 days (days 2-5) PO B-complex with vitamin C 1 tab PO DAILY cetirizine 10 mg PO DAILY cholecalciferol (vitamin D3) 25 mcg PO DAILY fluoxetine 40 mg PO BEDTIME 90 days fluticasone propion-salmeterol 115-21 mcg/actuation (Advair HFA) 2 puffs inhalation BID 30 days fluticasone propionate 50 mcg/actuation (Flonase Allergy Relief) 1 spray intranasal BID 30 days lamotrigine 300 mg (1.5 x 200 mg) PO BEDTIME 90 days leg brace (Knee Support Brace) Need for left support knee brace multivitamin,[id number] (Complete Multivitamin tablet) 1 tab PO DAILY ondansetron 4 mg PO Q8H PRN pilocarpine HCl 7.5 mg PO DAILY 90 days semaglutide 1 mg (0.75 mL) subcut TU 4 weeks trazodone 100 mg PO BEDTIME Do you need a note to return to daycare/school/sports/work: No HPI EP tight chest, dark green, phlegm, SOB HPI Details Patient presents for a sick visit. Reporting symptoms of sinus congestion, sore throat and difficulty swallowing. Low-grade fever. No family member is sick. No recent travel. Patient reports symptoms of malaise and fatigue. [facility] Medical History Dog bite Osteoarthritis of left knee Allergic rhinitis COVID-19 vaccine administered Trigger thumb of left hand Asthma Hypertriglyceridemia FH: ovarian cancer in first degree relative History of asthma Recovering alcoholic Hx of insomnia History of depression History of posttraumatic stress disorder (PTSD) Surgical History History of hand surgery History of blepharoplasty History of biopsy Hx of tubal ligation H/O elbow surgery History of bunionectomy Family History Father Lung cancer Mother Afib Sister Ovarian cancer Other Mental health disorder Substance use disorder Social History Housing: Apartment Are you a primary neonatal intensive care nurse to a significant other at home: No Do you presently have visiting nurse or other home services: No Alcohol intake: never Patient Tobacco Use Status: Former Tobacco user Tobacco use type: Cigarette e-Cigarette/Vaping Use: Never Used Second Hand Smoke Exposure: No Substance Use Type: Marijuana service: No Current occupational status: employed Current occupation: [employer] Cognitive needs: No Hearing needs: No Vision needs: Yes (glasses) Female Reproductive History Menstrual Age of Menarche: 14 Physical Exam Vital Signs: Last Vital Signs Temp 98.1 F 03/23/24 13:25 Pulse 72 03/23/24 13:25 BP 130/80 03/23/24 13:25 Pulse Ox 97 03/23/24 13:25 Oxygen Delivery Method Room Air 03/23/24 13:25 BMI result Body Mass Index 24.4 Const General: cooperative and healthy appearing Nutritional Appearance: well nourished Orientation/consciousness: patient oriented x3 Limitations: no limitations HEENT Head: Yes normal to inspection Eyes General: appearance normal, both eyes and all related structures Neck Neck: Yes normal visual inspection Chest Chest palpation & inspection: normal palpation of entire chest wall Resp Effort & Inspection: normal respiratory effort Neuro General: patient oriented x3 Assessment & Plan Assessment & Plan (1) Upper respiratory tract infection: Code(s): J06.9 - Acute upper respiratory infection, unspecified Plan: Antibiotics ordered. Increase fluid intake. Tylenol for aches and pains. If symptoms worsen, follow-up here for a recheck. Medications: New azithromycin take 500 mg today (day 1), then 250 mg for 4 days (days 2-5) PO 6 tabs 0RF Coding Level of Care Code Est Pt Level 3 (85935) Diagnoses Upper respiratory tract infection J06.9
== END 2024-03-23 14:31 | disposition home or self-care (01) ==
PROVIDERS: PCP Physician Assistant; Visit Provider Internal Medicine
DX: J06.9 Acute upper respiratory infection, unspecified (principal)

== ENCOUNTER → 2024-03-23 13:19 | Outpatient (BNVA) | payer OTHER, SELFPAY | PROVIDERS: PCP Physician Assistant; Visit Provider Internal Medicine | DX: J06.9 Acute upper respiratory infection, unspecified (principal) | CPT/HCPCS: 99212 ==

== ENCOUNTER 2024-03-30 12:14 | Outpatient (AMB) | payer OTHER, SELFPAY ==
[2024-03-30 12:40] VITALS: BP 120/84; PULSE 77; TEMP 36.6; O2SAT 95
--- NOTE | 2024-03-30 12:40 | MHC.OFFWIV ---
Intake Vital Signs 03/30/24 12:40 Weight 132 lb BP 120/84 Blood Pressure Location Lt brachial Position Sitting Pulse 77 Pulse Source Pulse Oximeter Temp 98 F Temp Source Oral Pulse Oximetry (%) 95 Oxygen Delivery Method Room Air Intake Visit Reasons: EP-sob, body weakness Intake Note: Patient here for body aches and SOB that has been present for a few days. Patient Tobacco Use Status: Former Tobacco user Allergies cat dander [cats] Allergy (Verified 03/30/24 12:58) Rash kiwi Allergy (Verified 03/30/24 12:58) Anaphylaxis Medication List - Last Reconciled 03/30/24 by Jonathan Hills MD acetaminophen ER 650 mg PO DAILY albuterol sulfate 90 mcg/actuation (Ventolin HFA) 1 inh inhalation QID PRN 30 days B-complex with vitamin C 1 tab PO DAILY cetirizine 10 mg PO DAILY cholecalciferol (vitamin D3) 25 mcg PO DAILY fluoxetine 40 mg PO BEDTIME 90 days fluticasone propion-salmeterol 115-21 mcg/actuation (Advair HFA) 2 puffs inhalation BID 30 days fluticasone propionate 50 mcg/actuation (Flonase Allergy Relief) 1 spray intranasal BID 30 days lamotrigine 300 mg (1.5 x 200 mg) PO BEDTIME 90 days leg brace (Knee Support Brace) Need for left support knee brace multivitamin,[id number] (Complete Multivitamin tablet) 1 tab PO DAILY ondansetron 4 mg PO Q8H PRN pilocarpine HCl 7.5 mg PO DAILY 90 days semaglutide 1 mg (0.75 mL) subcut TU 4 weeks trazodone 100 mg PO BEDTIME Do you need a note to return to daycare/school/sports/work: No HPI EP-sob, body weakness HPI Details 64 yr old female presents to the office for a sick visit. Recently seen for bronchitis and given Z ese. Continues to have persistent cough albeit non productive and wheezing. No shortness of breath. Cough is paroxysmal and worse at night. [facility] Medical History Dog bite Osteoarthritis of left knee Allergic rhinitis COVID-19 vaccine administered Trigger thumb of left hand Asthma Hypertriglyceridemia FH: ovarian cancer in first degree relative History of asthma Recovering alcoholic Hx of insomnia History of depression History of posttraumatic stress disorder (PTSD) Surgical History History of hand surgery History of blepharoplasty History of biopsy Hx of tubal ligation H/O elbow surgery History of bunionectomy Family History Father Lung cancer Mother Afib Sister Ovarian cancer Other Mental health disorder Substance use disorder Social History Housing: Apartment Are you a primary manager critical care unit to a significant other at home: No Do you presently have visiting nurse or other home services: No Alcohol intake: never Patient Tobacco Use Status: Former Tobacco user Tobacco use type: Cigarette e-Cigarette/Vaping Use: Never Used Second Hand Smoke Exposure: No Substance Use Type: Marijuana service: No Current occupational status: employed Current occupation: [employer] Cognitive needs: No Hearing needs: No Vision needs: Yes (glasses) Female Reproductive History Menstrual Age of Menarche: 14 Physical Exam Vital Signs: Last Vital Signs Temp 98 F 03/30/24 12:40 Pulse 77 03/30/24 12:40 BP 120/84 03/30/24 12:40 Pulse Ox 95 03/30/24 12:40 Oxygen Delivery Method Room Air 03/30/24 12:40 Const General: cooperative and healthy appearing Nutritional Appearance: well nourished Orientation/consciousness: patient oriented x3 Limitations: no limitations HEENT Head: Yes normal to inspection Eyes General: appearance normal, both eyes and all related structures Neck Neck: Yes normal visual inspection Chest Chest palpation & inspection: normal palpation of entire chest wall Resp Effort & Inspection: normal respiratory effort Neuro General: patient oriented x3 Assessment & Plan Assessment & Plan (1) Upper respiratory tract infection: Code(s): J06.9 - Acute upper respiratory infection, unspecified Plan: Prednisone added to the regimen. Continue to use the albuterol inhalers and cough medications. Coding Level of Care Code Est Pt Level 3 (14103) Diagnoses Upper respiratory tract infection J06.9
== END 2024-03-30 14:37 | disposition home or self-care (01) ==
PROVIDERS: PCP Physician Assistant; Visit Provider Internal Medicine
DX: J06.9 Acute upper respiratory infection, unspecified (principal)

== ENCOUNTER → 2024-03-30 12:14 | Outpatient (BNVA) | payer OTHER, SELFPAY | PROVIDERS: PCP Physician Assistant; Visit Provider Internal Medicine | DX: J06.9 Acute upper respiratory infection, unspecified (principal); R05.8 Other specified cough | CPT/HCPCS: 99212 ==

== ENCOUNTER 2024-04-09 09:57 | Outpatient (REF) | payer OTHER, SELFPAY ==
--- NOTE | ~2024-04-09 | MM_ITS ---
EXAMINATION: MM SCREENING DIGITAL BREAST TOMOSYNTHESIS, BILATERAL CLINICAL INFORMATION: Screening. Asymptomatic. COMPARISON: Mammography: Comparison is made with available priors TECHNIQUE: Digital breast mammography with tomosynthesis is performed in both the craniocaudal and mediolateral oblique views along with computer-aided detection (CAD). FINDINGS: There are scattered areas of fibroglandular density (ACR BI-RADS breast composition Category b). There are no significant masses, abnormal calcifications, or other abnormalities. MM/MM tomosynthesis screening BI IMPRESSION: No mammographic evidence of malignancy. ASSESSMENT: BI-RADS BI-RADS 1 - Negative RECOMMENDATION: Routine annual mammography screening. 1 year F/U This examination should not preclude the clinical evaluation of a suspicious palpable abnormality. This patient's information was entered into a reminder system with a target due date for their next mammogram. Electronically signed by: Charlotte Mendoza DO 04/18/2024 08:47 AM ADRIANE
== END 2024-04-09 09:58 | disposition home or self-care (01) ==
LOC: HO.MAMMO 09:57
PROVIDERS: PCP Physician Assistant; Visit Provider Physician Assistant
DX: Z12.31 Encounter for screening mammogram for malignant neoplasm of breast (principal)
CPT/HCPCS: 77063; 77067

== ENCOUNTER → 2024-04-09 10:00 | Outpatient (BNV) | payer OTHER, SELFPAY | PROVIDERS: PCP Physician Assistant; Visit Provider Internal Medicine | DX: Z12.31 Encounter for screening mammogram for malignant neoplasm of breast (principal) | CPT/HCPCS: 77063; 77067 ==

== ENCOUNTER 2024-06-19 09:49 | Outpatient (REF) | payer OTHER, SELFPAY ==
[2024-06-19 11:28] LABS: Hematocrit 38.9 % (37.0-47.0); Hemoglobin 12.8 g/dl (12.0-16.0); Mean Corpuscular HGB Conc 32.9 g/dl (31.0-35.0); Mean Corpuscular Volume 91.3 fL (80.0-98.0); Mean Platelet Volume 9.3 fL (9.4-12.3); Platelet Count 369 X10*3/uL (160-400); Red Blood Count 4.26 X10*6/uL (4.20-5.50); Red Cell Distribution Width 14.1 % (11.0-16.0); White Blood Count 7.2 X10*3/uL (4.8-10.8)
[2024-06-19 11:48] LABS: Alanine Aminotransferase 21 U/L (0-31); Albumin Level 4.1 g/dL (3.5-5.0); Alkaline Phosphatase 60 U/L (39-117); Anion Gap 11 (12-20); Aspartate Amino Transferase 28 U/L (5-31); Bilirubin Total 0.3 mg/dL (0.0-1.0); Blood Urea Nitrogen 11 mg/dL (9-16); Calcium 9.1 mg/dL (8.4-10.2); Carbon Dioxide 25 mmol/L (22-29); Chloride 110 mmol/L (96-108); Cholesterol 214 mg/dL (<200); Estimated Glomerular Filt Rate > 60; Glucose Fasting 93 mg/dL (60-99); HDL Cholesterol 65 mg/dL (>40); LDL Cholesterol Calculated 136 mg/dL (<100); Sodium 142 mmol/L (135-145); Triglycerides 67 mg/dL (<150)
== END 2024-06-19 09:50 | disposition home or self-care (01) ==
LOC: HO.HMGCLDS 09:49
PROVIDERS: PCP Physician Assistant; Visit Provider Physician Assistant
DX: E78.9 Disorder of lipoprotein metabolism, unspecified (principal); J45.20 Mild intermittent asthma, uncomplicated
CPT/HCPCS: 36415; 80053; 80061; 85027

== ENCOUNTER 2024-06-21 13:36 | Outpatient (AMB) | payer OTHER, SELFPAY ==
--- NOTE | 2024-06-21 13:48 | MHC.PC.OV ---
Vital Signs 06/21/24 13:50 Height 5 ft 3 in Weight 129 lb 4 oz BMI 22.9 BP 130/76 Blood Pressure Location Lt brachial Position Sitting Pulse 82 Pulse Source Pulse Oximeter Temp 97.3 F Temp Source Temporal Artery Scan Pulse Oximetry (%) 97 Oxygen Delivery Method Room Air Intake Visit Reasons: Annual Exam Intake Note: Patient is here today for a physical. Fitness Director Required: No Accompanied by: Self / Same As Patient Allergies cat dander [cats] Allergy (Verified 06/21/24 13:59) Rash kiwi Allergy (Verified 06/21/24 13:59) Anaphylaxis Medication List - Last Reconciled 06/21/24 by Josemanuel Stroud PA-C acetaminophen ER 650 mg PO DAILY albuterol sulfate 90 mcg/actuation (Ventolin HFA) 1 inh inhalation QID PRN 30 days B-complex with vitamin C 1 tab PO DAILY cetirizine 10 mg PO DAILY cholecalciferol (vitamin D3) 25 mcg PO DAILY fluoxetine 40 mg PO BEDTIME 90 days fluticasone propion-salmeterol 115-21 mcg/actuation (Advair HFA) 2 puffs inhalation BID 30 days fluticasone propionate 50 mcg/actuation (Flonase Allergy Relief) 1 spray intranasal BID 30 days lamotrigine 300 mg (1.5 x 200 mg) PO BEDTIME 90 days leg brace (Knee Support Brace) Need for left support knee brace multivitamin,[id number] (Complete Multivitamin tablet) 1 tab PO DAILY ondansetron 4 mg PO Q8H PRN pilocarpine HCl 7.5 mg PO DAILY 90 days topiramate (Topamax) 50 mg PO BEDTIME 30 days trazodone 100 mg PO BEDTIME Tobacco use date assessed: 06/21/24 Dental Screening Dental Screen Date: 06/21/24 Did you have a dental visit in the last 12 months?: Yes Did you have a dental problem in the last 6 months where you did not have access to dental care?: No Was dental information given to patient?: Patient has dentist HPI Annual Exam HPI Details Patient is a 64-year-old female here today for a follow-up visit. Patient has a past medical history significant for asthma, borderline high total cholesterol, generalized anxiety disorder, major depressive disorder. / Borderline high cholesterol: Most recent lipid panel showing improved cholesterol has been working on lifestyle modifications on reducing her cholesterol foods. .. 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 She uses Advair on a daily basis per She rarely has to use her albuterol inhaler. .. Anxiety /depression: She reports depression and anxiety has been fairly well controlled. She has been working with a mental health therapist. On high dose of SSRI therapy. She was recently started on topiramate to help her with maintaining her weight loss. . Vaccine:? Up-to-date with tetanus, UTD pneumonia, shingles, UTD with Flu vaccine. She is interested in getting the RSV vaccine .. Mammo ; mammogram Apr 2024- normal .. 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 and gets Pap smears Colon cancer screening : [facility]- 02/2024?- Repeat 2026 [facility] Medical History Dog bite Osteoarthritis of left knee Allergic rhinitis COVID-19 vaccine administered Trigger thumb of left hand Asthma Hypertriglyceridemia FH: ovarian cancer in first degree relative History of asthma Recovering alcoholic Hx of insomnia History of depression History of posttraumatic stress disorder (PTSD) Surgical History History of hand surgery History of blepharoplasty History of biopsy Hx of tubal ligation H/O elbow surgery History of bunionectomy Family History Father Lung cancer Mother Afib Sister Ovarian cancer Other Mental health disorder Substance use disorder Social History Housing: Apartment Are you a primary care program resident to a significant other at home: No Do you presently have visiting nurse or other home services: No Alcohol intake: never Patient Tobacco Use Status: Former Tobacco user Tobacco use type: Cigarette e-Cigarette/Vaping Use: Never Used Second Hand Smoke Exposure: No Substance Use Type: Marijuana service: No Current occupational status: employed 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 Cognitive needs: No Hearing needs: No Vision needs: Yes (glasses) Female Reproductive History Menstrual Age of Menarche: 14 Questionnaire PHQ-9 Over the last 2 weeks, how often have you been bothered by any of the following problems? 1. Little interest or pleasure in doing things: not at all 2. Feeling down, depressed, or hopeless: nearly every day 3. Trouble falling or staying asleep, or sleeping too much: not at all 4. Feeling tired or having little energy: nearly every day 5. Poor appetite or overeating: not at all 6. Feeling bad about yourself - or that you are a failure or have let yourself or your family down: nearly every day 7. Trouble concentrating on things, such as reading the newspaper or watching television: nearly every day 8. Moving or speaking so slowly that other people could have noticed. Or the opposite - being so fidgety or restless that you have been moving around a lot more than usual: not at all 9. Thoughts that you would be better off or of hurting yourself in some way: not at all Total score: 12 Depression Screening Interpretation: Positive Depression Screening Follow-up: Existing condition and In treatment Depression Screening Done: Yes 44579 - PHQ-9 Billing: Yes Source: Developed by Drs. Sarwat Ledezma, Shannon Rock, Win Peralta and colleagues, with an educational heather from [employer]. Thrive Questionnaire Date Thrive assessed: 06/21/24 I am a: Patient What is your living situation today?: I have a steady place to live Within the past 12 months, did the food you bought not last and you didn't have the money to get more?: I choose not to answer this question Within the past 12 months, did you worry whether your food would run out before you got money to buy more?: I choose not to answer this question Do you have trouble paying for medicines?: No Do you have trouble getting transportation to medical appointments?: No Do you have trouble paying your heating and electricity bill?: No Do you have trouble taking care of your child, family member or friend?: No Do you have trouble with day-to-day activities such as bathing, preparing meals, shopping, managing finances, etc.?: No Are you currently unemployed and looking for a job?: Yes Are you interested in more education?: No Please select the resources that you would like help with: None Currently or been in a relationship where the following occur: No concerns reported THRIVE Score: 0 AUDIT C Alcohol Use Questionnaire (AUDIT-C) 1. How often do you have a drink containing alcohol?: Never 3. How often do you have six or more drinks on one occasion?: Never Total Score: 0 JETHRO-7 AMB Questionnaire JETHRO-7 Date JETHRO - 7 assessed: 06/21/24 Feeling nervous, anxious, or on edge: 1 = Several days Not being able to stop or control worryin = Not at all Worrying too much about different things: 1 = Several days Trouble relaxin = Not at all Being so restless that it is hard to sit still: 0 = Not at all Becoming easily annoyed or irritable: 1 = Several days Feeling afraid as if something awful might happen: 0 = Not at all Total JETHRO-7 score (0-4 normal; 5-9 mild; 10-14 moderate; 15-21 severe): 3 Source: Developed by Drs. Sarwat Ledezma, Shannon Rock, Win Peralta and colleagues, with an educational heather from [employer]. JETHRO-7 Assessment Billing JETHRO-7 Assessment Tool: JETHRO-7 Assessment 67828 ACT Questionnaire In the past 4 weeks, how much of the time did your asthma keep you from getting as much done at work, school or at home?: None of the time During the past 4 weeks, how often have you had shortness of breath?: Not at all During the past 4 weeks, how often did your asthma symptoms wake you up at night or earlier than usual in the morning?: Not at all During the past 4 weeks, how often have you had to use your rescue inhaler or nebulizer medication?: Not at all How would you rate your asthma control during the past 4 weeks?: Completely controlled ACT Interpretation: Negative Score: 25 Physical exam (Primary Care) Vital Signs: Last Vital Signs Temp 97.3 F 06/21/24 13:50 Pulse 82 06/21/24 13:50 BP 130/76 06/21/24 13:50 Pulse Ox 97 06/21/24 13:50 Oxygen Delivery Method Room Air 06/21/24 13:50 BMI result Body Mass Index 22.9 Tobacco/Smoking Status: Tobacco use Status Tobacco use date assessed 06/21/24 06/21/24 13:58 Patient Tobacco Use Status Former Tobacco user 06/21/24 13:50 Tobacco use type Cigarette 06/21/24 13:50 e-Cigarette/Vaping Use Never Used 06/21/24 13:50 PHQ-9: PHQ-9 Score PHQ-9: Total score 12 06/21/24 14:31 Depression Screening Interpretation: Positive Depression Screening Follow-up: Existing condition and In treatment Thrive Assessment: Date of Thrive Assessment Date Thrive assessed 06/21/24 06/21/24 13:56 Currently or been in a relationship where the following occur: No concerns reported Coding Level of Care Code Est Pt Prev Care 40-64y(06768) Diagnoses Annual physical exam Z00.00 Borderline high cholesterol E78.9 Moderate episode of recurrent major depressive disorder F33.1 Active/Remission status: currently active Major depression episode severity: moderate Major depression recurrence: recurrent Mild intermittent asthma without complication J45.20 Asthma severity: mild Asthma persistence: intermittent Asthma complication type: uncomplicated Additional Codes JETHRO-7 Assessment Billing - JETHRO-7 Assessment Tool: JETHRO-7 Assessment 63178 ([id number]) PHQ-9 - 40346 - PHQ-9 Billing: Yes ([id number]) Asthma Control Questionnaire - ACT Interpretation: Negative ([id number]) Assessment & Plan Assessment & Plan (1) Annual physical exam: Code(s): Z00.00 - Encounter for general adult medical examination without abnormal findings Category: Medical Plan: As per HPI (2) Borderline high cholesterol: Code(s): E78.9 - Disorder of lipoprotein metabolism, unspecified Category: Medical Plan: Patient is lipid panel showing borderline high total cholesterol. We did discuss ways to reduce her cholesterol. (3) MDD (major depressive disorder): Code(s): F32.9 - Major depressive disorder, single episode, unspecified Category: Medical Qualifiers: Active/Remission status: currently active Major depression episode severity: moderate Major depression recurrence: recurrent Qualified Code(s): F33.1 - Major depressive disorder, recurrent, moderate Plan: Patient's PHQ-9 score positive for depression which has been existing condition for her. Continue on her mental health medications. Only started on Topamax to help with her weight loss maintenance. (4) Asthma: Code(s): J45.909 - Unspecified asthma, uncomplicated Category: Medical Qualifiers: Asthma severity: mild Asthma persistence: intermittent Asthma complication type: uncomplicated Qualified Code(s): J45.20 - Mild intermittent asthma, uncomplicated Plan: Patient reports recently her asthma has been a bit worse in attributes to allergies secondary to cleaning a house with a lot of dogs. Otherwise she continues to use Advair and p.r.n. use of her albuterol inhaler with good effect. Today in office pulmonary exam normal. Orders: Orders Comprehensive [place]. Panel Fast Today E78.9 - Disorder of lipoprotein metabolism, unspecified Lipid Panel Today E78.9 - Disorder of lipoprotein metabolism, unspecified Complete Blood Count no Diff Today E78.9 - Disorder of lipoprotein metabolism, unspecified Medications: Refilled topiramate (Topamax) 50 mg PO BEDTIME 30 tabs 6RF 30 days E66.09 - Other obesity due to excess calories, Z68.30 - Body mass index [BMI] 30.0-30.9, adult
[2024-06-21 13:50] VITALS: BP 130/76; PULSE 82; TEMP 36.3; O2SAT 97; BMI 22.9
--- OUTSIDE RECORDS SUMMARY | 2024-06-21 15:54 | XMS_ITS | Patient Health Record ---
Author Organization [facility] Address [address] [place] [address] Care Team Providers Care Club Attendant Name Role Phone Josemanuel Stroud Primary Care Provider Unavailab Zac Phelan Unavailable [phone] Allergies No Known Allergies Reason For Referral [...] Insured Coverage Start Date Coverage End Date [facility] CCA SCO Claims [address] [place] [id number] Roselia Pa Self - patient is the insured Medical (General) History Medical History History ICD Code Anxiety Back,Hip,and Knee pain Broken bones Depression Gout Surgical History Surgery Date(Month/Year) foot surgery 2x
== END 2024-06-21 14:21 | disposition home or self-care (01) ==
LOC: HO.HMCH 13:37
PROVIDERS: PCP Physician Assistant; Visit Provider Physician Assistant
DX: Z00.00 Encounter for general adult medical examination without abnormal findings (principal); E78.9 Disorder of lipoprotein metabolism, unspecified; F33.1 Major depressive disorder, recurrent, moderate; J45.20 Mild intermittent asthma, uncomplicated

== ENCOUNTER → 2024-06-21 13:36 | Outpatient (BNVA) | payer OTHER, SELFPAY | PROVIDERS: PCP Physician Assistant; Visit Provider Physician Assistant | DX: Z00.00 Encounter for general adult medical examination without abnormal findings (principal); E78.9 Disorder of lipoprotein metabolism, unspecified; F33.1 Major depressive disorder, recurrent, moderate; J45.20 Mild intermittent asthma, uncomplicated | CPT/HCPCS: 96127; 96160; 99396 ==

== ENCOUNTER 2024-08-17 14:43 | Outpatient (AMB) | payer OTHER, SELFPAY ==
--- NOTE | 2024-08-17 14:43 | MHC.OFFWIV ---
Intake Vital Signs 08/17/24 14:44 Height 5 ft 3 in Weight 130 lb BMI 23.0 BP 132/74 Blood Pressure Location Rt brachial Position Sitting Pulse 79 Pulse Source Pulse Oximeter Temp 98.3 F Temp Source Oral Pulse Oximetry (%) 98 Intake Visit Reasons: EP upper respiratory Patient Tobacco Use Status: Former Tobacco user Allergies cat dander [cats] Allergy (Verified 08/17/24 14:44) Rash kiwi Allergy (Verified 08/17/24 14:44) Anaphylaxis Do you need a note to return to daycare/school/sports/work: No HPI HPI Comments History of Present Illness Details History - The patient is a 64-year-old female presenting with respiratory symptoms including productive cough with green sputum and shortness of breath. - The onset was approximately a week ago following an airplane journey from [place]. - She reported feeling feverish last week but hasn?t measured her temperature. - Increased shortness of breath is noted, and the patient has asthma, for which she uses an albuterol inhaler and Advair daily but admits she is not compliant most days. - No current use of OTC medications like Mucinex, though there is discomfort in the left ear. - Recent cessation of vaping after a couple of years. Physical Exam General: Cooperative, healthy appearing, comfortable and no acute distress Orientation/consciousness: Patient oriented x3 Limitations: No limitations Head: Normal to inspection Ears: Hearing grossly normal bilaterally, external ears normal and TM's normal bilaterally, but patient reports left ear discomfort Nose: Normal external nose present, Normal nares present and No nasal discharge present Face and sinus: Normal facial exam and Yes sinuses nontender Mouth: Normal oral and palatal mucosa present and moist mucous membranes Throat: Yes tonsils normal, Yes uvula midline. Posterior oropharynx erythema, no exudates noted Eyes: Appearance normal, both eyes and all related structures Neck: Normal visual inspection Respiratory: Clear to auscultation bilaterally. Normal respiratory effort, able to speak in complete sentences, no respiratory distress, not tachypneic, no tripod positioning and no use of accessory muscles Cardiovascular: Regular rate and rhythm. Normal S1 and S2 Skin: No rashes or lesions noted Neuro: Patient oriented x3 Extremities: Normal to inspection and Yes no clubbing, cyanosis or edema [facility] Medical History Dog bite Osteoarthritis of left knee Allergic rhinitis COVID-19 vaccine administered Trigger thumb of left hand Asthma Hypertriglyceridemia FH: ovarian cancer in first degree relative History of asthma Recovering alcoholic Hx of insomnia History of depression History of posttraumatic stress disorder (PTSD) Surgical History History of hand surgery History of blepharoplasty History of biopsy Hx of tubal ligation H/O elbow surgery History of bunionectomy Family History Father Lung cancer Mother Afib Sister Ovarian cancer Other Mental health disorder Substance use disorder Social History Housing: Apartment Are you a primary direct support professional caregiver to a significant other at home: No Do you presently have visiting nurse or other home services: No Alcohol intake: never Patient Tobacco Use Status: Former Tobacco user Tobacco use type: Cigarette e-Cigarette/Vaping Use: Never Used Second Hand Smoke Exposure: No Substance Use Type: Marijuana service: No Current occupational status: employed Current occupation: [employer] Cognitive needs: No Hearing needs: No Vision needs: Yes (glasses) Female Reproductive History Menstrual Age of Menarche: 14 Review of Systems Const All systems reviewed & are unremarkable except as noted in HPI and below Physical Exam Vital Signs: Last Vital Signs Temp 98.3 F 08/17/24 14:44 Pulse 79 08/17/24 14:44 BP 132/74 08/17/24 14:44 Pulse Ox 98 08/17/24 14:44 BMI result Body Mass Index 23.0 Assessment & Plan Assessment & Plan (1) URI, acute: Code(s): J06.9 - Acute upper respiratory infection, unspecified Plan: VSS, pt well appearing and PE unremarkable. The patient?s treatment involves starting a Z-Wali given the potential bacterial nature of her symptoms. I've advised increasing Advair to twice daily and using albuterol inhaler every four to six hours as needed to manage asthma symptoms more effectively during this period. The patient has been suggested the use of OTC mucus expectorants like Mucinex to help alleviate productive cough. Negative COVID-19 home results reduce the suspicion of COVID-19 or flu complications. The recent cessation of vaping should benefit her lung health in the long run. 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 Patient was informed and verbally consented to the use of an ambient scribe for clinic note documentation during this visit Medications: New azithromycin For 250 mg dose pack: take 500 mg today (day 1), then 250 mg for 4 days (days 2-5) PO 6 tabs 0RF Coding Level of Care Code Est Pt Level 3 (49860) Diagnoses URI, acute J06.9
[2024-08-17 14:44] VITALS: BP 132/74; PULSE 79; TEMP 36.8; O2SAT 98; BMI 23.0
--- OUTSIDE RECORDS SUMMARY | 2024-08-17 15:50 | XMS_ITS | Patient Health Record ---
Author Organization [facility] Address [address] [place] [address] Care Team Providers Care Clay Pigeon Setter Name Role Phone Josemanuel Stroud Primary Care Provider Unavailab Zac Phelan Unavailable [phone] Allergies No Known Allergies Reason For Referral [...] Insured Coverage Start Date Coverage End Date [facility] [employer] Claims [address] [place] [id number] Roselia Pa Self - patient is the insured Medical (General) History Medical History History ICD Code Anxiety Back,Hip,and Knee pain Broken bones Depression Gout Surgical History Surgery Date(Month/Year) foot surgery 2x
== END 2024-08-17 15:20 | disposition home or self-care (01) ==
PROVIDERS: PCP Physician Assistant; Visit Provider Physician Assistant
DX: J06.9 Acute upper respiratory infection, unspecified (principal)

== ENCOUNTER → 2024-08-17 14:43 | Outpatient (BNVA) | payer OTHER, SELFPAY | PROVIDERS: PCP Physician Assistant | DX: J06.9 Acute upper respiratory infection, unspecified (principal) | CPT/HCPCS: 99212 ==

== ENCOUNTER 2024-11-23 12:05 | Outpatient (REF) | payer OTHER, SELFPAY ==
[2024-11-23 17:12] LABS: Resp Syncy Virus RNA Qual PCR NEGATIVE (Negative); SARS COV2 PCR INHOUSE NEGATIVE (Negative)
--- OUTSIDE RECORDS SUMMARY | 2024-11-23 17:40 | XMS_ITS | Encounter Summary ---
Author Organization [facility] Address [address] [place] [address] Care Team Providers Care Hoop Punch Operator Helper Name Role Phone Camacho Suarez Primary Care Provider Jonathan Montejo MD Primary Care Provider Katie vailable Reason for Visit * Reason Onset Date Comments Medical Records 08/05/2016 Encounter Details Date Type Department Care Team Description 08/05/2016 Telephone OBGYN - [place] [address] [place] [address] Sary Stoner MD Medical Records Social History Tobacco Use Types Packs/Day Years Used Date Smoking Tobacco: Former Cigarettes 1 25 Q uit: 09/05/2005 Smokeless Tobacco: Never Alcohol Use Standard Drinks/Week Comments No 0 (1 standard drink = 0.6 oz pur e alcohol) sober 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 Sex Assigned at Date Recorded Not on file documented as of this encounter Miscellaneous Notes * Telephone Encounter - Ximena Hauser - 08/05/2016 3:54 PM EDT Patient signed [facility]ANG for [facility] for mammo reocrds, faxed accordingly nr documented in this encounter Plan of Treatment Not on file documented as of this encounter Visit Diagnoses Not on filedocumented in this encounter Care Teams Hoop Punch Operator Helper Relationship Specialty Start Date End Date Camacho Suarez PCP - General Family Practice 01/09/12 09/28/18 Jonathan Hills MD PCP - General Internal Medicine 09/29/18 documented as of this encounter
== END 2024-11-23 12:06 | disposition home or self-care (01) ==
LOC: HO.LNP 12:05
PROVIDERS: PCP Physician Assistant; Visit Provider Physician Assistant Medical
DX: H92.02 Otalgia, left ear (principal); J02.9 Acute pharyngitis, unspecified; R09.89 Other specified symptoms and signs involving the circulatory and respiratory systems
CPT/HCPCS: 87637; 87880; 99212

== ENCOUNTER 2024-11-23 12:05 | Outpatient (AMB) | payer OTHER, SELFPAY ==
[2024-11-23 12:34] VITALS: BP 122/80; PULSE 70; TEMP 36.9; O2SAT 97; BMI 24.9
--- NOTE | 2024-11-23 12:34 | MHC.OFFWIV ---
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 - Symptoms began four weeks ago during a trip to [place], initially as ear discomfort, now involving difficulty swallowing and glandular sensation. - She has pain from the ear that radiates to the throat. - She thinks that she has an ear infection from swimming, - No cough reported, with exposure to water activities noted. - He denies fever, chills, CP, SOB, abd pain, or n/v/d. Physical Exam General: Cooperative, healthy appearing, comfortable, no acute distress and well developed Orientation: Patient oriented x3 Limitations: No limitations Head: Normal to inspection Ears: Hearing grossly normal bilaterally. No erythema in the canals. TMs are normal, not bulging noted. Nose: Clear nasal discharge. Face and sinus: Normal facial exam. No TTP of the sinuses. Eyes: Appearance normal, both eyes and all related structures Neck: Normal visual inspection and Yes full ROM. No lymphadenopathy noted. Respiratory: Normal respiratory effort and able to speak in complete sentences. Clear to auscultation bilaterally Cardiovascular: Regular rate and rhythm. Normal S1 and S2 GI: Normal to inspection. Soft to palpation and nontender Skin: No rashes or lesions noted Patient was informed and verbally consented to the use of an ambient scribe for clinic note documentation during this visit. [facility] Medical History Dog bite Osteoarthritis of left knee Allergic rhinitis COVID-19 vaccine administered Trigger thumb of left hand Asthma Hypertriglyceridemia FH: ovarian cancer in first degree relative History of asthma Recovering alcoholic Hx of insomnia History of depression History of posttraumatic stress disorder (PTSD) Surgical History History of hand surgery History of blepharoplasty History of biopsy Hx of tubal ligation H/O elbow surgery History of bunionectomy Family History Father Lung cancer Mother Afib Sister Ovarian cancer Other Mental health disorder Substance use disorder Social History Housing: Apartment Are you a primary healthcare facility administrator to a significant other at home: No Do you presently have visiting nurse or other home services: No Alcohol intake: never Patient Tobacco Use Status: Former Tobacco user Tobacco use type: Cigarette e-Cigarette/Vaping Use: Never Used Second Hand Smoke Exposure: No Substance Use Type: Marijuana Patient : No service: No Current occupational status: employed Current occupation: [employer] Cognitive needs: No Hearing needs: No Vision needs: Yes (glasses) Female Reproductive History Menstrual Age of Menarche: 14 Review of Systems Const All systems reviewed & are unremarkable except as noted in HPI and below Physical Exam Vital Signs: Last Vital Signs Temp 98.5 F 11/23/24 12:34 Pulse 70 11/23/24 12:34 BP 122/80 11/23/24 12:34 Pulse Ox 97 11/23/24 12:34 Oxygen Delivery Method Room Air 11/23/24 12:34 BMI result Body Mass Index 24.9 Assessment & Plan Assessment & Plan (1) Left ear pain: Code(s): H92.02 - Otalgia, left ear (2) Sore throat: Code(s): J02.9 - Acute pharyngitis, unspecified Plan Most likely URI vs strep vs covid vs flu vs RSV vs OM Rapid strep is negative Plan - Test for COVID-19, influenza, and RSV due to symptoms and current infection trends. - Prescribe decongestants to relieve sinus pressure and postnasal drip. - Conduct a rapid strep test to exclude streptococcal infection. - tylenol or motrin as needed - diet as tolerated - follow up with PCP Orders: Orders SARS-CoV2/FLU/RSV Today R09.89 - Other specified symptoms and signs involving the circulatory and respiratory systems AMB Rapid Strep Screen Today J02.9 - Acute pharyngitis, unspecified Medications: New fluticasone propionate 50 mcg/actuation administer into each nostril 1 spray intranasal Q12H 16 grams 0RF cetirizine-pseudoephedrine 5-120 mg ER 1 tab PO BID 14 tabs 0RF 7 days Coding Level of Care Code Est Pt Level 3 (48391) Diagnoses Left ear pain H92.02 Sore throat J02.9
--- OUTSIDE RECORDS SUMMARY | 2024-11-23 13:28 | XMS_ITS | Patient Health Record ---
Author Organization [facility] Address [address] [place] [address] Care Team Providers Care Draw Fire Operator Name Role Phone Josemanuel Stroud Primary Care Provider Unavailab Zac Phelan Unavailable [phone] Allergies No Known Allergies Reason For Referral No Information Medications Medication SIG (Take, Route, Fr equency, Duration) Notes Start Date End Date Status Fluoxetine 40MG Active traZODone HCl 100 MG 1 tablet at bedtime Orally Once a day; Duration: 30 day(s) Activ e Social History Tobacco Use: Social History Observation [...] Insured Coverage Start Date Coverage End Date [facility] CCA SCO Claims [address] [place] [id number] Roselia Pa Self - patient is the insured Medical (General) History Medical History History ICD Code Anxiety Back,Hip,and Knee pain Broken bones Depression Gout Surgical History Surgery Date(Month/Year) foot surgery 2x
== END 2024-11-23 13:58 | disposition home or self-care (01) ==
PROVIDERS: PCP Physician Assistant; Visit Provider Physician Assistant Medical
DX: H92.02 Otalgia, left ear (principal); J02.9 Acute pharyngitis, unspecified

== ENCOUNTER 2024-12-20 14:52 | Outpatient (AMB) | payer OTHER, SELFPAY ==
--- NOTE | 2024-12-20 14:58 | A.OFFPC_ITS ---
Vital Signs 12/20/24 15:00 Height 5 ft 3 in Weight 144 lb BMI 25.5 BP 140/82 H Blood Pressure Location Lt brachial Position Sitting Pulse 78 Pulse Source Pulse Oximeter Temp 97.3 F Temp Source Temporal Artery Scan Pulse Oximetry (%) 98 Oxygen Delivery Method Room Air Intake Visit Reasons: 6 Month F/U Intake Note: Patient is here to follow up on Asthma, Obesity . Television Analyzer Required: No Postpartum Nurse: Not Required per policy Accompanied by: Self / Same As Patient Allergies cat dander (cats) Allergy (Verified 12/20/24 15:07) Rash kiwi Allergy (Verified 12/20/24 15:07) Anaphylaxis Medication List - Last Reconciled 12/20/24 by Josemanuel Stroud PA-C acetaminophen ER 650 mg PO DAILY albuterol sulfate 90 mcg/actuation (Ventolin HFA) 1 inh inhalation QID PRN 30 days B-complex with vitamin C 1 tab PO DAILY cetirizine 10 mg PO DAILY cholecalciferol (vitamin D3) 25 mcg PO DAILY fluoxetine 40 mg PO BEDTIME 90 days fluticasone propion-salmeterol 115-21 mcg/actuation (Advair HFA) 2 puffs inha lation BID 30 days fluticasone propionate 50 mcg/actuation 1 spray intranasal Q12H lamotrigine 300 mg (1.5 x 200 mg) PO BEDTIME 90 days leg brace (Knee Support Brace) Need for left support knee brace multivitamin,[id number] (Complete Multivitamin tablet) 1 tab PO DAILY ondansetron 4 mg PO Q8H PRN pilocarpine HCl 7.5 mg PO DAILY 90 days tirzepatide (weight loss) (Zepbound) 2.5 mg (0.5 mL) subcut QWEEK 4 weeks trazodone 100 mg PO BEDTIME Tobacco use date assessed: 12/20/24 Dental Screening Dental Screen Date: 06/21/24 HPI 6 Month F/U HPI Details Patient is a 65 year-old female here today for a follow-up visit. Patient has a past medical history significant for asthma, borderline high total cholesterol, generalized anxiety disorder, major depressive disorder.] BMI 25.5: She has a history of obesity, with a recent weight increase from 130 pounds to 144 pounds over six months, causing significant distress she was previously on a GLP 1 which was helping her multiple ways. 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 -- >Her depression is linked to her weig ht issues and medication changes, and she is currently on fluoxetine, lamotrigine, and trazodone, while attending weekly therapy sessions. / Borderline high cholesterol: Most recent lipid panel showing improved cholesterol has been working on lifestyle modifications on reducing her cholesterol foods. .. Asthma: Patient reports as of late her asthma has been not well controlled, she attributes this to being exposed to dog dander at a [employer] business. She uses Advair on a daily basis per She rarely has to use her albuterol inhaler. .. Anxiety /depression: She reports depression and anxiety has been fairly well controlled. She has been working with a mental health therapist. On high dose of SSRI therapy. She was recently started on topiramate to help her with maintaining her weight loss. . [facility] Medical History Dog bite Osteoarthritis of left knee Allergic rhinitis COVID-19 vaccine administered Trigger thumb of left hand Asthma Hypertriglyceridemia FH: ovarian cancer in first degree relative History of asthma Recovering alcoholic Hx of insomnia History of depression History of posttraumatic stress disorder (PTSD) Surgical History History of hand surgery History of blepharoplasty History of biopsy Hx of tubal ligation H/O elbow surgery History of bunionectomy Family History Father Lung cancer Mother Afib Sister Ovarian cancer Other Mental health disorder Substance use disorder Social History Housing: Apartment Are you a primary animal care assistant to a significant other at home: No Do you presently have visiting nurse or other home services: No Alcohol intake: never Patient Tobacco Use Status: Former Tobacco user Tobacco use type: Cigarette e-Cigarette/Vaping Use: Never Used Second Hand Smoke Exposure: Yes Substance Use Type: Marijuana service: No Current occupational status: employed 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 Cognitive needs: No Hearing needs: No Vision needs: Yes (glasses) Female Reproductive History Menstrual Age of Menarche: 14 Questionnaire Thrive Questionnaire Date Thrive assessed: 06/14/24 I am a: Patient What is your living situation today?: I have a steady place to live Within the past 12 months, did the food you bought not last and you didn't have the money to get more?: I choose not to answer this question Within the past 12 months, did you worry whether your food would run out before you got money to buy more?: I choose not to answer this question Do you have trouble paying for medicines?: No Do you have trouble getting transportation to medical appointments?: No Do you have trouble paying your heating and electricity bill?: No Do you have trouble taking care of your child, family member or friend?: No Do you have trouble with day-to-day activities such as bathing, preparing meals, shopping, managing finances, etc.?: No Are you currently unemployed and looking for a job?: Yes Are you interested in more education?: No Please select the resources that you would like help with: None Currently or been in a relationship where the following occur: No concerns reported THRIVE Score: 0 AUDIT C Alcohol Use Questionnaire (AUDIT-C) 3. How often do you have six or more drinks on one occasion?: Never Total Score: 0 JETHRO-7 AMB Questionnaire JETHRO-7 Date JETHRO - 7 assessed: 06/21/24 Source: Developed by Drs. Sarwat Ledezma, Shannon Rock, Win Peralta and colleagues, with an educational heather from [employer]. Review of Systems Const Denies headache(s) Eyes Denies loss of vision ENT Denies vertigo, Denies dizziness, Denies headache(s) and Denies sore throat Card Denies chest pain, Denies leg edema and Denies lightheadedness Resp Denies cough, Denies hemoptysis and Denies wheezing GI Denies abdominal pain, Denies melena, Denies constipation, Denies diarrhea and Denies vomiting Denies urinary frequency, Denies dysuria and Denies urinary urgency Musc Denies arthralgias, Denies joint swelling, Denies numbness and Denies tingling Neuro Denies Abnormal speech present, Denies behavioral changes, Denies vertigo, Denies dizziness, Denies headache(s), Denies loss of vision, Denies memory loss, Denies numbness and Denies tingling Psych Denies anxiety, Denies behavioral changes, Denies depression, Denies memory loss and Denies panic attacks Daniel/Lymph Denies easy bleeding and Denies easy bruising Aller/Immun Denies wheezing Physical exam (Primary Care) Vital Signs: Last Vital Signs Temp 97.3 F 12/20/24 15:00 Pulse 78 12/20/24 15:00 BP 140/82 H 12/20/24 15:00 Pulse Ox 98 12/20/24 15:00 Oxygen Delivery Method Room Air 12/20/24 15:00 BMI result Body Mass Index 25.5 BMI Assessment/Plan discussion: High BMI High, discussed plan: lifestyle, weight reduction, dietary and physical activity Tobacco/Smoking Status: Tobacco use Status Tobacco use date assessed 12/20/24 12/20/24 15:06 Patient Tobacco Use Status Former Tobacco user 12/20/24 15:06 Tobacco use type Cigarette 12/20/24 15:06 e-Cigarette/Vaping Use Never Used 12/20/24 15:06 Thrive Assessment: Date of Thrive Assessment Date Thrive assessed 06/14/24 12/20/24 15:06 Currently or been in a relationship where the following occur: No concerns reported Const General: healthy appearing, no acute distress, alert and awake Nutritional Appearance: well nourished Orientation/consciousness: oriented to person, oriented to place and oriented to time HENMT Ears: TM's normal bilaterally General nose exam: Normal nasal mucous membranes and turbinates present Eyes Conjunctivae: conjunctivae normal Sclerae: sclerae normal Pupils: Equal, round and reactive pupils present Neck Neck: Yes no lymphadenopathy and Yes no JVD Thyroid: Thyroid normal Carotids: no bruits Resp Effort & Inspection: normal respiratory effort and not tachypneic Auscultation: no crackles, no rales, no rhonchi and no wheezes Cardio Rate: regular rate Rhythm: regular rhythm Heart sounds: no murmurs and normal S1 and S2 GI Palpation (GI): Soft to palpation, nontender, no hepatomegaly and no splenomegaly Auscultation: normal bowel sounds Skin General skin exam: no rashes or lesions noted and dry skin Neuro General: oriented to person, oriented to place and oriented to time Cranial nerves: Yes Equal, round and reactive pupils present Speech: No Abnormal speech present Gait exam (Neuro): Normal gait present Motor exam (neuro): no tremor noted Extrem Right upper extremity: full ROM Left upper extremity: full ROM Right lower extremity: full ROM; no edema Left lower extremity: full ROM; no edema Psych Mental Status: mental status grossly normal Speech and movement: Normal speech and movement present Affect: normal affect Attitude: cooperative Thought process: Normal thought process present Coding Level of Care Code Est Pt Level 4 (24315) Diagnoses Overweight (BMI 25.0-29.9) E66.3 Borderline high cholesterol E78.9 Moderate episode of recurrent major depressive disorder F33.1 Active/Remission status: currently active Major depression episode severity: moderate Major depression recurrence: recurrent Mild intermittent asthma without complication J45.20 Asthma complication type: uncomplicated Asthma persistence: intermittent Asthma severity: mild Assessment & Plan Assessment & Plan (1) Overweight (BMI 25.0-29.9): Code(s): E66.3 - Overweight Category: Medical Plan: The plan for obesity includes attempting to secure insurance coverage for weight management medication, as the patient has previously benefited from such treatment. The patient is advised to continue engaging in physical activity through her work and to maintain a balanced diet. (2) Borderline high cholesterol: Code(s): E78.9 - Disorder of lipoprotein metabolism, unspecified Category: Medical Plan: Patient is lipid panel showing borderline high total cholesterol. We did discuss ways to reduce her cholesterol. (3) MDD (major depressive disorder): Code(s): F32.9 - Major depressive disorder, single episode, unspecified Category: Medical Qualifiers: Active/Remission status: currently active Major depression episode severity: moderate Major depression recurrence: recurrent Qualified Code(s): F33.1 - Major depressive disorder, recurrent, moderate Plan: Patient reports she has been more depressed due to her weight gain and not being on a GLP 1 which has interestingly helped her with her mental health and how it relates to dietary habits in the way she views herself. For depression, the patient is to continue her current medication regimen of fluoxetine, lamotrigine, and trazodone, and to attend weekly therapy sessions. (4) Asthma: Code(s): J45.909 - Unspecified asthma, uncomplicated Category: Medical Qualifiers: Asthma complication type: uncomplicated Asthma persistence: intermittent Asthma severity: mild Qualified Code(s): J45.20 - Mild intermittent asthma, uncomplicated Plan: Patient reports recently her asthma has been a bit worse in attributes to aller gies secondary to cleaning a house with a lot of dogs. Otherwise she continues to use Advair and p.r.n. use of her albuterol inhaler with good effect. Today in office pulmonary exam normal. Medications: Refilled tirzepatide (weight loss) (Zepbound) for 4 weeks 2.5 mg (0.5 mL) subcut QWEEK 2 mL 1RF 4 weeks E66.3 - Overweight lamotrigine 300 mg (1.5 x 200 mg) PO BEDTIME 135 tabs 2RF 90 days F33.1 - Major depressive disorder, recurrent, moderate fluoxetine 40 mg PO BEDTIME 90 caps 2RF 90 days F33.1 - Major depressive disorder, recurrent, moderate trazodone 100 mg PO BEDTIME 90 tabs 2RF E66.09 - Other obesity due to excess calories, Z68.30 - Body mass index [BMI] 30.0-30.9, adult
[2024-12-20 15:00] VITALS: BP 140/82; PULSE 78; TEMP 36.3; O2SAT 98; BMI 25.5
--- OUTSIDE RECORDS SUMMARY | 2024-12-20 20:20 | XMS_ITS | Patient Health Record ---
Author Organization [facility] Address [address] [place] [address] Care Team Providers Care Credit Administration Specialist Name Role Phone Josemanuel Stroud Primary Care Provider Unavailab Zac Phelan Unavailable [phone] Allergies No Known Allergies Reason For Referral [...] Insured Coverage Start Date Coverage End Date [facility] [employer] S[employer] Claims [address] [place] [id number] Roselia Pa Self - patient is the insured Medical (General) History Medical History History ICD Code Anxiety Back,Hip,and Knee pain Broken bones Depression Gout Surgical History Surgery Date(Month/Year) foot surgery 2x
== END 2024-12-20 15:29 | disposition home or self-care (01) ==
LOC: HO.HMCH 14:53
PROVIDERS: PCP Physician Assistant; Visit Provider Physician Assistant
DX: E66.3 Overweight (principal); E78.9 Disorder of lipoprotein metabolism, unspecified; F33.1 Major depressive disorder, recurrent, moderate; J45.20 Mild intermittent asthma, uncomplicated

== ENCOUNTER → 2024-12-20 14:52 | Outpatient (BNVA) | payer OTHER, SELFPAY | PROVIDERS: PCP Physician Assistant; Visit Provider Physician Assistant | DX: E66.3 Overweight (principal); E78.9 Disorder of lipoprotein metabolism, unspecified; F41.9 Anxiety disorder, unspecified; F33.1 Major depressive disorder, recurrent, moderate; J45.20 Mild intermittent asthma, uncomplicated; Z68.25 Body mass index [BMI] 25.0-25.9, adult | CPT/HCPCS: 99212 ==

== ENCOUNTER 2025-02-16 13:14 | Outpatient (AMB) | payer OTHER, SELFPAY ==
--- NOTE | 2025-02-16 13:20 | A.OFFVIS_ITS ---
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 for pottery kiln builder annual no concerns Corporate Secretary Required: No Information Interpreted: non-clinical & clinical Production Control Coordinator: Production Control Coordinator Present (Nathaly) Accompanied by: Self / Same As Patient Allergies cat dander (cats) Allergy (Verified 02/16/25 13:22) Rash kiwi Allergy (Verified 02/16/25 13:22) Anaphylaxis Medication List - Last Reconciled 02/16/25 by Rupa Payton LPN acetaminophen ER 650 mg PO DAILY albuterol sulfate 90 mcg/actuation (Ventolin HFA) 1 inh inhalation QID PRN 30 d ays B-complex with vitamin C 1 tab PO DAILY cetirizine 10 mg PO DAILY cholecalciferol (vitamin D3) 25 mcg PO DAILY fluoxetine 40 mg PO BEDTIME 90 days fluticasone propion-salmeterol 115-21 mcg/actuation (Advair HFA) 2 puffs inhalation BID 30 days fluticasone propionate 50 mcg/actuation 1 spray intranasal Q12H lamotrigine 300 mg (1.5 x 200 mg) PO BEDTIME 90 days leg brace (Knee Support Brace) Need for left support knee brace multivitamin,[id number] (Complete Multivitamin tablet) 1 tab PO DAILY ondansetron 4 mg PO Q8H PRN pilocarpine HCl 7.5 mg PO DAILY 90 days trazodone 100 mg PO BEDTIME Do you need a note to return to daycare/school/sports/work: No HPI Comments Details: Patient is a postmenopausal woman 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 Slope Hoist Operator concerns: none. Currently not sexually active. Denies any vaginal dryness, has slight external irritation at times. STI testing offered; she declined. Attempting to eat a healthy diet with calcium and vitamin D and stays active with exercise. Last pap smear; 2020, negative. Last mammogram; 2024. Colonoscopy is UTD. Family history of ovarian cancer. [facility] Medical History Dog bite Osteoarthritis of left knee Allergic rhinitis COVID-19 vaccine administered Trigger thumb of left hand Asthma Hypertriglyceridemia FH: ovarian cancer in first degree relative History of asthma Recovering alcoholic Hx of insomnia History of depression History of posttraumatic stress disorder (PTSD) Surgical History History of hand surgery History of blepharoplasty History of biopsy Hx of tubal ligation H/O elbow surgery History of bunionectomy Family History Father Lung cancer Mother Afib Sister Ovarian cancer Other Mental health disorder Substance use disorder Social History Housing: Apartment Are you a primary respiratory care faculty to a significant other at home: No Do you presently have visiting nurse or other home services: No Alcohol intake: never Patient Tobacco Use Status: Former Tobacco user Tobacco use type: Cigarette e-Cigarette/Vaping Use: Never Used Second Hand Smoke Exposure: Yes Substance Use Type: Marijuana service: No Current occupational status: employed Current occupation: [employer] Cognitive needs: No Hearing needs: No Vision needs: Yes (glasses) Female Reproductive History Menstrual Age of Menarche: 14 control method: permanent sterilization Menopause type: natural Total pregnancies: 1 Number of Living Children: 1 Date of last pap smear: 04/24/20 History of abnormal pap smear: No Date of Mammogram: 04/29/24 History of abnormal mammogram: No Review of Systems Const All systems reviewed & are unremarkable except as noted in HPI and below Reports as per HPI Eyes Reports no additional complaints ENT Reports no additional complaints Card Reports no additional complaints Resp Reports no additional complaints GI Reports as per HPI and Reports no additional complaints Reports as per HPI Musc Reports no additional complaints Skin/Breast Reports as per HPI Neuro Reports no additional complaints Psych Reports no additional complaints Endo Reports no additional complaints Daniel/Lymph Reports no additional complaints Aller/Immun Reports no additional complaints Physical Exam Vital Signs: Last Vital Signs BP 114/68 02/16/25 13:27 BMI result Body Mass Index 25.3 Const General: cooperative, healthy appearing, no acute distress, well developed and alert Orientation/consciousness: patient oriented x3 HEENT Head: Yes normal to inspection Eyes General: appearance normal, both eyes and all related structures Neck Neck: Yes normal visual inspection Thyroid: Thyroid normal Chest Chest palpation & inspection: normal inspection of the chest and other (no puckering, dimpling, peau de orange, retraction, discharge, masses) Breast/axilla inspection: normal inspection of the breasts Breast/axilla palpation: normal palpation of the breasts Resp Effort & Inspection: normal respiratory effort GI Inspection: Yes normal to inspection Palpation (GI): Soft to palpation Rectal Exam - Female: deferred General: Yes bladder normal to palpation External Female Exam: normal external appearance and normal appearance of the urethra Speculum Exam - Vagina: normal appearance of the vagina, normal palpation, normal vaginal discharge and vagina atrophic Speculum Exam - Cervix: normal appearance of the cervix and normal palpation Bimanual exam- vagina & uterus: normal bimanual exam, normal palpation, uterine size normal, bladder normal to palpation, normal palpation and non-tender Bimanual Exam- Adnexa, other: no masses Skin General skin exam: no rashes or lesions noted Rashes: no rashes Neuro General: patient oriented x3 Cognition (Neuro): normal cognition Extrem General: Yes normal to inspection Psych Attitude: cooperative Thought process: Normal thought process present Assessment & Plan Assessment & Plan (1) Encounter for well woman exam with routine gynecological exam: Code(s): Z01.419 - Encounter for gynecological examination (general) (routine) without abnormal findings Category: Medical Plan Discussed: Current recommendations for pap smears per ASCCP guidelines. Breast awareness, periodic self breast exams and yearly mammogram. Maintain a healthy lifestyle, well balanced diet including Calcium 1,200 mg and Vitamin D 600 IU daily, and routine exercise. Contact the office with any postmenopausal bleeding. Patient verbalizes understanding and agrees to the plan of care. She was given opportunity to ask questions and all questions were answered to the best of my ability. RTO in 1 year for annual pottery kiln builder exam. This note is constructed using voice recognition software. While every effort has been made to ensure accuracy, sales architect errors may have been included. Coding Level of Care Code Est Pt Prev Care 40-64y(84959) Diagnoses Encounter for well woman exam with routine gynecological exam Z01.419
[2025-02-16 13:27] VITALS: BP 114/68; BMI 25.3
--- OUTSIDE RECORDS SUMMARY | 2025-02-16 16:01 | XMS_ITS | Patient Health Record ---
Author Organization [facility] Address [address] [place] [address] Care Team Providers Care Cyber Defense Analyst Name Role Phone Josemanuel Stroud Primary Care Provider Unavailab Zac Phelan Unavailable [phone] Allergies No Known Allergies Reason For Referral [...] Coverage Start Date Coverage End Date [facility] [employer] Claims [address] [place] [id number] Roselia Pa Self - patient is the insured Medical (General) History Medical History History ICD Code Anxiety Back,Hip,and Knee pain Broken bones Depression Gout Surgical History Surgery Date(Month/Year) foot surgery 2x
== END 2025-02-16 14:45 | disposition home or self-care (01) ==
LOC: HO.HWS 13:15
PROVIDERS: PCP Physician Assistant; Visit Provider Advanced Practice Midwife
DX: Z01.419 Encounter for gynecological examination (general) (routine) without abnormal findings (principal)
CPT/HCPCS: 99396; 99459

== ENCOUNTER → 2025-02-16 13:14 | Outpatient (BNVA) | payer OTHER, SELFPAY | PROVIDERS: PCP Physician Assistant; Visit Provider Advanced Practice Midwife | DX: Z01.419 Encounter for gynecological examination (general) (routine) without abnormal findings (principal); Z78.0 Asymptomatic menopausal state | CPT/HCPCS: 99396 ==